=== PATIENT | female | born 1960 | race African-American/Black ===

== ENCOUNTER 2017-05-26 13:35 | Inpatient (IN) | payer MEDICARE ==
[~2017-05-26] VITALS: Ht 154.9 cm; Wt 142.9 kg
[~2017-05-26 13:35] MED LIST: CYCL10TA2 PO; HYDR-2679 PO; HYDR-971 PO
[2017-05-26 14:24] LABS: BASO # 0.1 x10^3/uL (0.0-0.2); BASO % 1 % (0-3); EOS % 0 % (0-3); HEMATOCRIT 41.7 % (36.0-47.0); HEMOGLOBIN 13.6 g/dL (12.0-15.5); LYMPH # 0.7 x10^3/uL (1.0-4.8); LYMPH % 5 % (24-48); MEAN CORPUSCULAR HEMOGLOBIN 29 pg (25-35); MEAN CORPUSCULAR HGB CONC 33 g/dL (31-37); MEAN CORPUSCULAR VOLUME 88 fL (79-100); MONO % 3 % (0-9); NEUT % 91 % (31-73); PLATELET COUNT 228 x10^3/uL (140-400); RED BLOOD COUNT 4.74 x10^6/uL (3.50-5.40); RED CELL DISTRIBUTION WIDTH 15.8 % (11.5-14.5); WHITE BLOOD COUNT 13.4 x10^3/uL (4.0-11.0)
[2017-05-26] MEDS: fentaNYL PF VIAL 100 MCG/2 ML VIAL IV PRN ×3 (14:32→19:16)
[2017-05-26 14:35] LABS: BILIRUBIN,URINE NEGATIVE (NEG); GLUCOSE,URINE NEGATIVE (NEG); NITRITE,URINE NEGATIVE (NEG); PROTEIN,URINE 100 mg/dL (NEG-TRACE); UROBILINOGEN,URINE 0.2 mg/dL (0.2 mg/dL)
[2017-05-26 14:36] LABS: CALCIUM 9.3 mg/dL (8.5-10.1); CREATININE 1.4 mg/dL (0.6-1.0); GFR 47.2; POTASSIUM 3.7 mmol/L (3.5-5.1)
[2017-05-26 14:42] LABS: ALBUMIN 3.9 g/dL (3.4-5.0); ALBUMIN/GLOBULIN RATIO 0.6 (1.0-1.7); TOTAL BILIRUBIN 1.2 mg/dL (0.2-1.0); TOTAL PROTEIN 10.1 g/dL (6.4-8.2)
[2017-05-26 14:43] LABS: BACTERIA,URINE 0 /HPF (0-FEW); SQUAMOUS EPITHELIAL CELL,UR MOD /LPF; WBC,URINE OCC /HPF (0-4)
[2017-05-26] MEDS ORDERED: CONTRAST GIVEN MC PRN (15:00)
[2017-05-26] MEDS ORDERED: IOHEXOL 300 MG/ML 75 ML VIAL IV ONE (15:15)
--- NOTE | 2017-05-26 15:40 | RAD ---
CT study of abdomen and pelvis with contrast Clinical indications: Generalized abdominal pain and bloating with nausea and vomiting. Technique: After IV infusion of 75 cc Optiray 300, helical CT scanning of the abdomen and pelvis was performed. No GI contrast was administered. This may decrease the sensitivity to detect GI tract pathology. PQRS Compliance Statement: One or more of the following individualized dose reduction techniques were utilized for this examination: 1. Automated exposure control 2. Adjustment of the mA and/or kV according to patient size 3. Use of iterative reconstruction technique Comparison: None available. Findings: Diffuse fatty infiltration of the liver is seen. The spleen is not enlarged. No focal aneurysmal dilatation of the abdominal aorta is seen. The pancreas is homogeneous. The gallbladder is surgically absent. No extrahepatic biliary ductal dilatation is seen. No adrenal mass is evident. There is diffuse enlargement of the right kidney with relative decreased enhancement. This is secondary to mild hydronephrosis and hydroureter. There is a distal right ureteral stone at the UVJ measuring 4 mm in size. Urinary bladder is not distended. Additional stones of the lower pole of the right kidney are seen. No enlarged abdominal or pelvic lymphadenopathy is seen. Midline umbilical hernia is seen containing fat. No obstructive bowel pattern is seen. The appendix is normal. No free air or free fluid or mesenteric inflammatory change is seen. No lung base consolidation is evident. Calcified atheromatous disease of the coronary arteries is seen. No osteolytic process is seen. IMPRESSION: Mild right-sided hydronephrosis and hydroureter due to a distal right ureteral stone located at the UVJ measuring 4 mm in size. Fatty infiltration of the liver. Calcified atheromatous disease of the coronary arteries is seen.
[2017-05-26 15:45] LABS: PLT ESTIMATE ADEQUATE (ADEQUATE)
--- NOTE | 2017-05-26 15:57 | PHYS DOC ---
Past Medical History Past Medical History: Diabetes-Type II, Hypertension Additional Past Medical Histor: MORBID OBESITY, OSTEOARTHRITIS Past Surgical History: Cholecystectomy Alcohol Use: None Drug Use: None Adult General Chief Complaint Chief Complaint: ABDOMINAL PAIN HPI HPI Patient is a 56 year old female brought to the ED by ambulance with the complaint of severe pain on the right side of her abdomen. This began this morning. She's had some vomiting and some diarrhea. Also urinary frequency and dysuria. The pain began Tuesday, 5 days ago, and has been constant but worsened this morning. Denies fever or chills. Denies shortness of breath. Patient has had a cholecystectomy but has not had appendectomy, she's never had a kidney stone or kidney problems. Patient has diabetes and hypertension, denies heart disease. PCP Dr. Adalid Olivares Review of Systems Review of Systems Constitutional: Denies fever or chills [] Eyes: Denies change in visual acuity, redness, or eye pain [] HENT: Denies nasal congestion or sore throat [] Respiratory: Denies cough or shortness of breath [] Cardiovascular: Denies chest pain GI: As in history of present illness : As in history of present illness Musculoskeletal: Denies back pain or joint pain [] Integument: Denies rash or skin lesions [] Neurologic: Denies headache, focal weakness or sensory changes [] Current Medications Current Medications Current Medications Medications (Trade) Dose Ordered Sig/Jenny Start Time Stop Time Status Last Admin Dose Admin Acetaminophen (Tylenol) 1,000 mg 1X ONCE 05/26/17 17:00 05/26/17 17:01 Fentanyl Citrate (Fentanyl 2ml Vial) 50 mcg PRN Q2HR PRN 05/26/17 16:00 05/27/17 15:59 Hydralazine HCl (Apresoline) 10 mg 1X ONCE 05/26/17 16:00 05/26/17 16:01 DC 05/26/17 15:54 10 MG Info (Do NOT chart on this entry -- for MONITORING) 1 each PRN DAILY PRN 05/26/17 15:00 05/28/17 14:59 Iohexol (Omnipaque 300 Mg/ml) 60 ml 1X ONCE 05/26/17 15:15 05/26/17 15:16 DC 05/26/17 15:04 60 ML Ondansetron HCl (Zofran) 4 mg PRN Q8HRS PRN 05/26/17 16:00 05/27/17 15:59 Sodium Chloride 1,000 ml @ 100 mls/hr Q10H 05/26/17 17:00 05/27/17 16:59 Tamsulosin HCl (Flomax) 0.4 mg 1X ONCE 05/26/17 16:00 05/26/17 16:01 DC 05/26/17 15:53 0.4 MG Allergies Allergies Allergies Coded Allergies Type Severity Reaction Last Updated Verified morphine Allergy Intermediate 05/26/17 Yes Physical Exam Physical Exam Constitutional: Obese, alert, mentating normally, warm and dry, appears to be uncomfortable HENT: Normocephalic, atraumatic, bilateral external ears normal, nose normal. [ ] Eyes: conjunctiva normal, no discharge. [] Neck: Normal range of motion, no stridor. [] Cardiovascular:Heart rate regular rhythm, no murmur [] Lungs & Thorax: Bilateral breath sounds clear to auscultation [] Abdomen: Bowel sounds normal, soft, appears moderately distended but difficult to assess due to obesity, no masses, no pulsatile masses. Tender to palpation on the right side of the abdomen, no rebound or guarding, not well localized. Skin: Warm, dry, no erythema, no rash. [] Extremities: No tenderness, no cyanosis, no clubbing, ROM intact, no edema. [] Neurologic: Alert and oriented X 3, normal motor function, normal sensory function, no focal deficits noted. [] Current Patient Data Vital Signs Vital Signs Date Time Temp Pulse Resp B/P (MAP) Pulse Ox O2 Delivery O2 Flow Rate FiO2 05/26/17 16:15 Room Air 05/26/17 15:54 64 211/104 05/26/17 15:51 87 05/26/17 13:35 98.7 20 98.7 Lab Values Laboratory Tests Test 05/26/17 13:50 05/26/17 14:00 Urine Collection Type Unknown Urine Color Yellow Urine Clarity Clear Urine pH 7.0 Urine Specific [place] 1.010 Urine Protein 100 mg/dL (NEG-TRACE) Urine Glucose (UA) Negative mg/dL (NEG) Urine Ketones (Stick) Trace mg/dL (NEG) Urine Blood Small (NEG) Urine Nitrite Negative (NEG) Urine Bilirubin Negative (NEG) Urine Urobilinogen Dipstick 0.2 mg/dL (0.2 mg/dL) Urine Leukocyte Esterase Negative (NEG) Urine RBC 1-2 /HPF (0-2) Urine WBC Occ /HPF (0-4) Urine Squamous Epithelial Cells Mod /LPF Urine Bacteria 0 /HPF (0-FEW) White Blood Count 13.4 x10^3/uL (4.0-11.0) H Red Blood Count 4.74 x10^6/uL (3.50-5.40) Hemoglobin 13.6 g/dL (12.0-15.5) Hematocrit 41.7 % (36.0-47.0) Mean Corpuscular Volume 88 fL (79-100) Mean Corpuscular Hemoglobin 29 pg (25-35) Mean Corpuscular Hemoglobin Concent 33 g/dL (31-37) Red Cell Distribution Width 15.8 % (11.5-14.5) H Platelet Count 228 x10^3/uL (140-400) Neutrophils (%) (Auto) 91 % (31-73) H Lymphocytes (%) (Auto) 5 % (24-48) L Monocytes (%) (Auto) 3 % (0-9) Eosinophils (%) (Auto) 0 % (0-3) Basophils (%) (Auto) 1 % (0-3) Neutrophils # (Auto) 12.2 x10^3uL (1.8-7.7) H Lymphocytes # (Auto) 0.7 x10^3/uL (1.0-4.8) L Monocytes # (Auto) 0.4 x10^3/uL (0.0-1.1) Eosinophils # (Auto) 0.0 x10^3/uL (0.0-0.7) Basophils # (Auto) 0.1 x10^3/uL (0.0-0.2) Segmented Neutrophils % 88 % (35-66) H Band Neutrophils % 3 % (0-9) Lymphocytes % 9 % (24-48) L Platelet Estimate Adequate (ADEQUATE) Sodium Level 139 mmol/L (136-145) Potassium Level 3.7 mmol/L (3.5-5.1) Chloride Level 104 mmol/L (98-107) Carbon Dioxide Level 29 mmol/L (21-32) Anion Gap 6 (6-14) Blood Urea Nitrogen 12 mg/dL (7-20) Creatinine 1.4 mg/dL (0.6-1.0) H Estimated GFR (Cockcroft-Gault) 47.2 BUN/Creatinine Ratio 9 (6-20) Glucose Level 147 mg/dL (70-99) H Calcium Level 9.3 mg/dL (8.5-10.1) Total Bilirubin 1.2 mg/dL (0.2-1.0) H Aspartate Amino Transferase (AST) 27 U/L (15-37) Alanine Aminotransferase (ALT) 24 U/L (14-59) Alkaline Phosphatase 75 U/L (46-116) Total Protein 10.1 g/dL (6.4-8.2) H Albumin 3.9 g/dL (3.4-5.0) Albumin/Globulin Ratio 0.6 (1.0-1.7) L Lipase 104 U/L (73-393) Laboratory Tests 05/26/17 14:00 Laboratory Tests 05/26/17 14:00 EKG EKG [] Radiology/Procedures Radiology/Procedures CT scan of the abdomen and pelvis read by the radiologist. Distal right ureteral stone at the UVJ measuring 4 mm with mild right-sided hydro-. [] Course & Med Decision Making Course & Med Decision Making Pertinent Labs and Imaging studies reviewed. (See chart for details) 56-year-old female presents with severe right-sided abdominal pain and vomiting , found to have a kidney stone in the right distal ureter with obstruction. She required IV pain medication in the emergency department. We also noted that her blood pressure was markedly elevated in the 220/110 range. After her pain was controlled, her blood pressure remained elevated. I ordered some IV hydralazine. The patient stated she had taken her morning blood pressure medicines as prescribed. I reviewed her previous chart and saw that on a previous visit her blood pressure was 210/91. The patient states her blood pressure is often markedly elevated when she comes to the hospital. I believe she does require IV pain control and also her creatinine is a bit elevated and this stone is causing some hydronephrosis so I feel it needs to be monitored closely to ensure that it does pass and not continue to cause hydronephrosis and stressed to her right kidney with her already having some renal insufficiency. I discussed admission with the patient and she is agreeable. I discussed the case with Dr. Sullivan, taking calls for Dr. Olivares. He will admit the patient. I wrote bridge orders. [] Dragon Disclaimer Dragon Disclaimer This electronic medical record was generated, in whole or in part, using a voice recognition dictation system. Departure Departure Impression: Primary Impression: Right ureteral stone Additional Impressions: Ureteral obstruction, right Hypertension Disposition: 09 ADMITTED INPATIENT Admitting Physician: Bryan Sullivan Condition: STABLE Referrals: KISHAN OLIVARES MD (PCP) Problem Qualifiers KIMBERLEY ANDREWS MD May 26, 2017 15:57
[2017-05-26] MEDS ORDERED: ONDANSETRON PF 4 MG/2 ML VIAL. IV PRN ×2 (16:00→23:15)
[2017-05-26] MEDS ORDERED: TAMSULOSIN 0.4 MG CAP.ER.24H. PO ONE (16:00)
[2017-05-26] MEDS ORDERED: hydrALAZINE 20 MG/ML VIAL. IVP ONE (16:00)
[2017-05-26] MEDS ORDERED: fentaNYL PF VIAL 100 MCG/2 ML VIAL IV ONE (16:00)
[2017-05-26] MEDS ORDERED: fentaNYL PF VIAL 100 MCG/2 ML VIAL IV PRN ×2 (16:00→19:15)
[2017-05-26] MEDS ORDERED: ACETAMINOPHEN 500 MG TABLET PO ONE (17:00)
--- NOTE | 2017-05-26 17:48 | PDOC ---
PROGRESS NOTES Subjective Subjective Pt. with right renal colic Objective Objective Vital Signs Date Time Temp Pulse Resp B/P (MAP) Pulse Ox O2 Delivery O2 Flow Rate FiO2 05/26/17 17:07 66 183/147 (159) 93 05/26/17 16:15 Room Air 05/26/17 13:35 98.7 20 98.7 Physical Exam Physical Exam Tender right abd and flank Plan Plan of Care Pt. with 4 mm right distal stone with pain and nausea Pt. with no prior stones. I discussed situation with pt. and we discussed the options, alternatives, benefits, risks and possible complications of medical expulsive therapy vs. cystoscopy with right retrograde pyelogram and possible right ureteroscopy with possible laser lithotripsy and stent placement. Pt. with think over options and will re-evaluate in am proceed accordingly. Problems Medical Problems: (1) Hypertension Status: Acute (2) Right ureteral stone Status: Acute (3) Ureteral obstruction, right Status: Acute Comment Review of Relevant I have reviewed the following items hal (where applicable) has been applied. Labs Laboratory Tests Test 05/26/17 13:50 05/26/17 14:00 Urine Collection Type Unknown Urine Color Yellow Urine Clarity Clear Urine pH 7.0 Urine Specific [place] 1.010 Urine Protein 100 mg/dL (NEG-TRACE) Urine Glucose (UA) Negative mg/dL (NEG) Urine Ketones (Stick) Trace mg/dL (NEG) Urine Blood Small (NEG) Urine Nitrite Negative (NEG) Urine Bilirubin Negative (NEG) Urine Urobilinogen Dipstick 0.2 mg/dL (0.2 mg/dL) Urine Leukocyte Esterase Negative (NEG) Urine RBC 1-2 /HPF (0-2) Urine WBC Occ /HPF (0-4) Urine Squamous Epithelial Cells Mod /LPF Urine Bacteria 0 /HPF (0-FEW) White Blood Count 13.4 x10^3/uL (4.0-11.0) Red Blood Count 4.74 x10^6/uL (3.50-5.40) Hemoglobin 13.6 g/dL (12.0-15.5) Hematocrit 41.7 % (36.0-47.0) Mean Corpuscular Volume 88 fL (79-100) Mean Corpuscular Hemoglobin 29 pg (25-35) Mean Corpuscular Hemoglobin Concent 33 g/dL (31-37) Red Cell Distribution Width 15.8 % (11.5-14.5) Platelet Count 228 x10^3/uL (140-400) Neutrophils (%) (Auto) 91 % (31-73) Lymphocytes (%) (Auto) 5 % (24-48) Monocytes (%) (Auto) 3 % (0-9) Eosinophils (%) (Auto) 0 % (0-3) Basophils (%) (Auto) 1 % (0-3) Neutrophils # (Auto) 12.2 x10^3uL (1.8-7.7) Lymphocytes # (Auto) 0.7 x10^3/uL (1.0-4.8) Monocytes # (Auto) 0.4 x10^3/uL (0.0-1.1) Eosinophils # (Auto) 0.0 x10^3/uL (0.0-0.7) Basophils # (Auto) 0.1 x10^3/uL (0.0-0.2) Segmented Neutrophils % 88 % (35-66) Band Neutrophils % 3 % (0-9) Lymphocytes % 9 % (24-48) Platelet Estimate Adequate (ADEQUATE) Sodium Level 139 mmol/L (136-145) Potassium Level 3.7 mmol/L (3.5-5.1) Chloride Level 104 mmol/L (98-107) Carbon Dioxide Level 29 mmol/L (21-32) Anion Gap 6 (6-14) Blood Urea Nitrogen 12 mg/dL (7-20) Creatinine 1.4 mg/dL (0.6-1.0) Estimated GFR (Cockcroft-Gault) 47.2 BUN/Creatinine Ratio 9 (6-20) Glucose Level 147 mg/dL (70-99) Calcium Level 9.3 mg/dL (8.5-10.1) Total Bilirubin 1.2 mg/dL (0.2-1.0) Aspartate Amino Transf (AST/SGOT) 27 U/L (15-37) Alanine Aminotransferase (ALT/SGPT) 24 U/L (14-59) Alkaline Phosphatase 75 U/L (46-116) Total Protein 10.1 g/dL (6.4-8.2) Albumin 3.9 g/dL (3.4-5.0) Albumin/Globulin Ratio 0.6 (1.0-1.7) Lipase 104 U/L (73-393) Laboratory Tests Test 05/26/17 13:50 05/26/17 14:00 Urine Collection Type Unknown Urine Color Yellow Urine Clarity Clear Urine pH 7.0 Urine Specific [place] 1.010 Urine Protein 100 mg/dL (NEG-TRACE) Urine Glucose (UA) Negative mg/dL (NEG) Urine Ketones (Stick) Trace mg/dL (NEG) Urine Blood Small (NEG) Urine Nitrite Negative (NEG) Urine Bilirubin Negative (NEG) Urine Urobilinogen Dipstick 0.2 mg/dL (0.2 mg/dL) Urine Leukocyte Esterase Negative (NEG) Urine RBC 1-2 /HPF (0-2) Urine WBC Occ /HPF (0-4) Urine Squamous Epithelial Cells Mod /LPF Urine Bacteria 0 /HPF (0-FEW) White Blood Count 13.4 x10^3/uL (4.0-11.0) Red Blood Count 4.74 x10^6/uL (3.50-5.40) Hemoglobin 13.6 g/dL (12.0-15.5) Hematocrit 41.7 % (36.0-47.0) Mean Corpuscular Volume 88 fL (79-100) Mean Corpuscular Hemoglobin 29 pg (25-35) Mean Corpuscular Hemoglobin Concent 33 g/dL (31-37) Red Cell Distribution Width 15.8 % (11.5-14.5) Platelet Count 228 x10^3/uL (140-400) Neutrophils (%) (Auto) 91 % (31-73) Lymphocytes (%) (Auto) 5 % (24-48) Monocytes (%) (Auto) 3 % (0-9) Eosinophils (%) (Auto) 0 % (0-3) Basophils (%) (Auto) 1 % (0-3) Neutrophils # (Auto) 12.2 x10^3uL (1.8-7.7) Lymphocytes # (Auto) 0.7 x10^3/uL (1.0-4.8) Monocytes # (Auto) 0.4 x10^3/uL (0.0-1.1) Eosinophils # (Auto) 0.0 x10^3/uL (0.0-0.7) Basophils # (Auto) 0.1 x10^3/uL (0.0-0.2) Segmented Neutrophils % 88 % (35-66) Band Neutrophils % 3 % (0-9) Lymphocytes % 9 % (24-48) Platelet Estimate Adequate (ADEQUATE) Sodium Level 139 mmol/L (136-145) Potassium Level 3.7 mmol/L (3.5-5.1) Chloride Level 104 mmol/L (98-107) Carbon Dioxide Level 29 mmol/L (21-32) Anion Gap 6 (6-14) Blood Urea Nitrogen 12 mg/dL (7-20) Creatinine 1.4 mg/dL (0.6-1.0) Estimated GFR (Cockcroft-Gault) 47.2 BUN/Creatinine Ratio 9 (6-20) Glucose Level 147 mg/dL (70-99) Calcium Level 9.3 mg/dL (8.5-10.1) Total Bilirubin 1.2 mg/dL (0.2-1.0) Aspartate Amino Transf (AST/SGOT) 27 U/L (15-37) Alanine Aminotransferase (ALT/SGPT) 24 U/L (14-59) Alkaline Phosphatase 75 U/L (46-116) Total Protein 10.1 g/dL (6.4-8.2) Albumin 3.9 g/dL (3.4-5.0) Albumin/Globulin Ratio 0.6 (1.0-1.7) Lipase 104 U/L (73-393) Medications Current Medications Fentanyl Citrate (Fentanyl 2ml Vial) 50 mcg PRN Q15MIN PRN IV PAIN GREATER THAN 3/10 Last administered on 05/26/17 15:26; Start 05/26/17 at 14:15; Stop at 23:00 Iohexol (Omnipaque 300 Mg/ml) 60 ml 1X ONCE IV Last administered on 05/26/17 15:04; Start 05/26/17 at 15:15; Stop 05/26/17 at 15:16; Status DC Info (Do NOT chart on this entry -- for MONITORING) 1 each PRN DAILY PRN MC SEE COMMENTS; Start 05/26/17 at 15:00; Stop 05/28/17 at 14:59 Fentanyl Citrate (Fentanyl 2ml Vial) 100 mcg 1X ONCE IV Last administered on 15:54; Start 05/26/17 at 16:00; Stop 05/26/17 at 16:01; Status DC Tamsulosin HCl (Flomax) 0.4 mg 1X ONCE PO Last administered on 05/26/17 15:53 ; Start 05/26/17 at 16:00; Stop 05/26/17 at 16:01; Status DC Hydralazine HCl (Apresoline) 10 mg 1X ONCE IVP Last administered on 05/26/17 15:54; Start 05/26/17 at 16:00; Stop 05/26/17 at 16:01; Status DC Ondansetron HCl (Zofran) 4 mg PRN Q8HRS PRN IV NAUSEA/VOMITING Last administered on 05/26/17 17:07; Start 05/26/17 at 16:00; Stop 05/27/17 at 15:59 Fentanyl Citrate (Fentanyl 2ml Vial) 50 mcg PRN Q2HR PRN IV PAIN; Start at 16:00; Stop 05/27/17 at 15:59 Sodium Chloride 1,000 ml @ 100 mls/hr Q10H IV ; Start 05/26/17 at 17:00; Stop 05/27/17 at 16:59 Acetaminophen (Tylenol) 1,000 mg 1X ONCE PO Last administered on 05/26/17 17: 07; Start 05/26/17 at 17:00; Stop 05/26/17 at 17:01; Status DC Active Scripts Active Lortab 7.5-325 mg Tablet (Hydrocodone/Acetaminophen) 1 Each Tablet 1 Tab PO PRN Q6HRS PRN [place] 5-325 Tablet (Acetaminophen/Hydrocodone Bitart) 1 Each Tablet 1 Tab PO PRN Q6HRS PRN Cyclobenzaprine Hcl 10 Mg Tablet 1 Tab PO TID PRN Vitals/I & O Vital Sign - Last 24 Hours 05/26/17 05/26/17 05/26/17 05/26/17 13:35 14:29 14:32 14:36 Temp 98.7 98.7 Pulse 81 74 60 Resp 20 B/P (MAP) 180/99 (126) 250/122 (164) 242/115 (157) Pulse Ox 95 93 93 O2 Delivery Room Air Room Air Room Air 05/26/17 05/26/17 05/26/17 05/26/17 15:26 15:40 15:51 15:54 Pulse 60 66 B/P (MAP) 248/118 (161) 211/104 (139) Pulse Ox 89 87 O2 Delivery Room Air Room Air 05/26/17 05/26/17 05/26/17 05/26/17 15:54 16:15 16:15 16:22 Pulse 64 70 B/P (MAP) 211/104 219/100 (139) Pulse Ox 93 O2 Delivery Room Air Room Air 05/26/17 05/26/17 16:37 17:07 Pulse 62 66 B/P (MAP) 192/91 (124) 183/147 (159) Pulse Ox 92 93 WESTON ÁLVAREZ MD May 26, 2017 17:48
--- NOTE | 2017-05-26 18:09 | ACF ---
Admission Forms Criteria ABDOMINAL PAIN Clinical Indications for Admission to Inpatient Care (Place 'X' for any and all applicable criteria): Admission is indicated for ANY ONE of the following(1)(2)(3)(4)(5): [X ]I. Inpatient admission required rather than observation care (Also use Abdominal Pain: Observation Care, as appropriate) because of ANY ONE of the following: [ ]a) Severe pain requiring acute inpatient management [X ]b) Identification of etiology/finding that requires inpatient care (eg, aortic dissection, free air) [ ]c) Absent bowel sounds with complete ileus(6) [ ]d) Suspected toxic megacolon [ ]e) Severe electrolyte abnormalities requiring inpatient care [ ]f) High fever or infection requiring inpatient admission as indicated by ANY ONE of following(7)(8): [ ] i) Appropriate outpatient or observational care antimicrobial treatment unavailable, not effective, or not feasible [ ] ii) Documented bacteremia [ ] iii) Temperature > 104.9 degrees F (oral) [ ] iv) T >103.1 F (oral) or < 96.8 F(rectal) that does not respond to all emergency treatment measures [ ]g) Signs of intestinal obstruction [B] [ ]h) Hemodynamic instability [ ]i) IV fluid to replace significant ongoing losses (greater than 3 L/m2 per day) (12)(13) [ ]j) Percutaneous or open drainage (eg, abscess, biliary tract ) procedures [ ]k) Parenteral nutrition regimen that must be implemented on inpatient basis [ ]l) Other condition,treatment or monitoring requiring inpatient admission. [ ]II. Peritoneal signs present [ ]III. Surgery needed that cannot be performed on an ambulatory basis. [ ]IV. Evaluation requires patient to not eat or drink for extended period ( eg, more than 24 hours). [ ]V. Contraindications and/or Inappropriate clinical situations for Observational Care in patients with abdominal pain, when ANY ONE of the following is required: [ ]a) Thorough evaluation is required to prevent catastrophic events due to delays in diagnosing (e.g.Mesenteric ischemia) 1,3 [ ]b) Patient with severe pathology or with chronic symptoms unlikely to improve in the ED stay (3) [X ]. General contraindications and/or Inappropriate clinical situations for Observational Care in patients with abdominal pain, when ANY ONE of the following is required: [ ]a) Prediction of prolongation of LOS based on ANY ONE of the following may be considered as a contraindication for observational care 2, 3, 4, 5, 6, 7, 8, 9, 10, 11 [ ]i) Age > 65 yrs. [ ]ii) Patient arriving by ambulance [ ]iii) Patient with high acuity [ ]iv) Patient requiring vital sign monitoring [ ]v) Patient on IV medication [X ]b) Systolic blood pressures 180mmHg 3,12 [ ]c) Patient with altered mental status including delirium and other alteration of consciousness, (3) [ ]d) Patient whose discharge disposition will be to a fpc home or rehabilitation home should not be managed in Emergency Department Observation Unit. CMS rule requires 3 days hospital stay before such placement.3,13 [ ]e) Patient with failure to thrive due to broad array of etiologies 3,16,17 [ ]f) Inability to ambulate 3,14 Extended stay beyond goal length of stay may be needed for(2)(3): [ ]a) Persistent abdominal pain with suspected intra-abdominal process [ ]b) Diagnosed condition requiring continued stay (e.g., pancreatitis, complicated diverticulitis) [ ]c) Surgery (e.g., colectomy) The original [facility] content created by [employer] has been revised. The portions of the content which have been revised are identified through the use of italic text or in bold, and [facility] has neither reviewed nor approved the modified material.All other unmodified content is copyright [facility] [facility]. Please see references footnoted in the original [facility] edition 2016 Admission Criteria Met?: Yes CARINE PEDERSON May 26, 2017 18:08
[2017-05-26] MEDS ORDERED: cloNIDine HCL 0.2 MG TABLET PO PRN (19:15)
[2017-05-26 20:08] VITALS: BP 213/86
[2017-05-26] MEDS: IV NORMAL SALINE 1000ML BAG 1,000 ML IV SCH (20:13)
[2017-05-26] MEDS: hydrALAZINE 20 MG/ML VIAL. IVP PRN (20:22)
[2017-05-26 23:10] VITALS: BP 183/96
[2017-05-26] MEDS ORDERED: PROMETHAZINE 12.5 MG in IV NORMAL SALINE 50ML 50 ML IV PRN (23:15)
[2017-05-27] VITALS (11 sets, daily range): BP systolic 122–176; BP diastolic 66–109
[2017-05-27] MEDS: IV NORMAL SALINE 1000ML BAG 1,000 ML IV SCH ×2 (03:00→16:30)
[2017-05-27 08:17] LABS: BASO % 0 % (0-3); EOS % 0 % (0-3); HEMATOCRIT 38.5 % (36.0-47.0); HEMOGLOBIN 12.6 g/dL (12.0-15.5); LYMPH # 1.3 x10^3/uL (1.0-4.8); LYMPH % 13 % (24-48); MEAN CORPUSCULAR HEMOGLOBIN 29 pg (25-35); MEAN CORPUSCULAR HGB CONC 33 g/dL (31-37); MEAN CORPUSCULAR VOLUME 89 fL (79-100); MONO % 9 % (0-9); NEUT % 77 % (31-73); PLATELET COUNT 226 x10^3/uL (140-400); RED BLOOD COUNT 4.34 x10^6/uL (3.50-5.40); RED CELL DISTRIBUTION WIDTH 15.7 % (11.5-14.5); WHITE BLOOD COUNT 10.2 x10^3/uL (4.0-11.0)
[2017-05-27 08:36] LABS: CALCIUM 8.9 mg/dL (8.5-10.1); CREATININE 2.1 mg/dL (0.6-1.0); GFR 29.6; POTASSIUM 3.6 mmol/L (3.5-5.1)
--- NOTE | 2017-05-27 08:38 | PDOC ---
PROGRESS NOTES Subjective Subjective Pt. is pain free Objective Objective Vital Signs Date Time Temp Pulse Resp B/P (MAP) Pulse Ox O2 Delivery O2 Flow Rate FiO2 05/27/17 07:00 99.5 53 20 122/67 (85) 93 Room Air 99.5 Intake and Output 05/27/17 07:00 Intake Total 0 ml Output Total 500 ml Balance -500 ml Intake Oral 0 ml Output Urine Total 500 ml Physical Exam Physical Exam No abdominal or flank pain Plan Plan of Care Pt. reports no pain this morning however, pt's Cr. has increased to 2.1. I discussed the options, alternatives, benefits, risks and possible complications of watchful waiting vs. intervention with cystoscopy, right retrograde pyelogram , possible right ureteroscopy with possible laser lithotripsy and stent placement. Pt. understands and wishes to proceed with operation. Will proceed accordingly. Problems Medical Problems: (1) Hypertension Status: Acute (2) Right ureteral stone Status: Acute (3) Ureteral obstruction, right Status: Acute Comment Review of Relevant I have reviewed the following items hal (where applicable) has been applied. Labs Laboratory Tests Test 05/26/17 13:50 05/26/17 14:00 05/26/17 20:55 05/27/17 07:11 Urine Collection Type Unknown Urine Color Yellow Urine Clarity Clear Urine pH 7.0 Urine Specific [place] 1.010 Urine Protein 100 mg/dL (NEG-TRACE) Urine Glucose (UA) Negative mg/dL (NEG) Urine Ketones (Stick) Trace mg/dL (NEG) Urine Blood Small (NEG) Urine Nitrite Negative (NEG) Urine Bilirubin Negative (NEG) Urine Urobilinogen Dipstick 0.2 mg/dL (0.2 mg/dL) Urine Leukocyte Esterase Negative (NEG) Urine RBC 1-2 /HPF (0-2) Urine WBC Occ /HPF (0-4) Urine Squamous Epithelial Cells Mod /LPF Urine Bacteria 0 /HPF (0-FEW) White Blood Count 13.4 x10^3/uL (4.0-11.0) Red Blood Count 4.74 x10^6/uL (3.50-5.40) Hemoglobin 13.6 g/dL (12.0-15.5) Hematocrit 41.7 % (36.0-47.0) Mean Corpuscular Volume 88 fL (79-100) Mean Corpuscular Hemoglobin 29 pg (25-35) Mean Corpuscular Hemoglobin Concent 33 g/dL (31-37) Red Cell Distribution Width 15.8 % (11.5-14.5) Platelet Count 228 x10^3/uL (140-400) Neutrophils (%) (Auto) 91 % (31-73) Lymphocytes (%) (Auto) 5 % (24-48) Monocytes (%) (Auto) 3 % (0-9) Eosinophils (%) (Auto) 0 % (0-3) Basophils (%) (Auto) 1 % (0-3) Neutrophils # (Auto) 12.2 x10^3uL (1.8-7.7) Lymphocytes # (Auto) 0.7 x10^3/uL (1.0-4.8) Monocytes # (Auto) 0.4 x10^3/uL (0.0-1.1) Eosinophils # (Auto) 0.0 x10^3/uL (0.0-0.7) Basophils # (Auto) 0.1 x10^3/uL (0.0-0.2) Segmented Neutrophils % 88 % (35-66) Band Neutrophils % 3 % (0-9) Lymphocytes % 9 % (24-48) Platelet Estimate Adequate (ADEQUATE) Sodium Level 139 mmol/L (136-145) Potassium Level 3.7 mmol/L (3.5-5.1) Chloride Level 104 mmol/L (98-107) Carbon Dioxide Level 29 mmol/L (21-32) Anion Gap 6 (6-14) Blood Urea Nitrogen 12 mg/dL (7-20) Creatinine 1.4 mg/dL (0.6-1.0) Estimated GFR (Cockcroft-Gault) 47.2 BUN/Creatinine Ratio 9 (6-20) Glucose Level 147 mg/dL (70-99) Calcium Level 9.3 mg/dL (8.5-10.1) Total Bilirubin 1.2 mg/dL (0.2-1.0) Aspartate Amino Transf (AST/SGOT) 27 U/L (15-37) Alanine Aminotransferase (ALT/SGPT) 24 U/L (14-59) Alkaline Phosphatase 75 U/L (46-116) Total Protein 10.1 g/dL (6.4-8.2) Albumin 3.9 g/dL (3.4-5.0) Albumin/Globulin Ratio 0.6 (1.0-1.7) Lipase 104 U/L (73-393) Glucose (Fingerstick) 142 mg/dL (70-99) 108 mg/dL (70-99) Test 05/27/17 07:40 White Blood Count 10.2 x10^3/uL (4.0-11.0) Red Blood Count 4.34 x10^6/uL (3.50-5.40) Hemoglobin 12.6 g/dL (12.0-15.5) Hematocrit 38.5 % (36.0-47.0) Mean Corpuscular Volume 89 fL (79-100) Mean Corpuscular Hemoglobin 29 pg (25-35) Mean Corpuscular Hemoglobin Concent 33 g/dL (31-37) Red Cell Distribution Width 15.7 % (11.5-14.5) Platelet Count 226 x10^3/uL (140-400) Neutrophils (%) (Auto) 77 % (31-73) Lymphocytes (%) (Auto) 13 % (24-48) Monocytes (%) (Auto) 9 % (0-9) Eosinophils (%) (Auto) 0 % (0-3) Basophils (%) (Auto) 0 % (0-3) Neutrophils # (Auto) 7.9 x10^3uL (1.8-7.7) Lymphocytes # (Auto) 1.3 x10^3/uL (1.0-4.8) Monocytes # (Auto) 0.9 x10^3/uL (0.0-1.1) Eosinophils # (Auto) 0.0 x10^3/uL (0.0-0.7) Basophils # (Auto) 0.0 x10^3/uL (0.0-0.2) Laboratory Tests Test 05/26/17 13:50 05/26/17 14:00 05/26/17 20:55 05/27/17 07:11 Urine Collection Type Unknown Urine Color Yellow Urine Clarity Clear Urine pH 7.0 Urine Specific [place] 1.010 Urine Protein 100 mg/dL (NEG-TRACE) Urine Glucose (UA) Negative mg/dL (NEG) Urine Ketones (Stick) Trace mg/dL (NEG) Urine Blood Small (NEG) Urine Nitrite Negative (NEG) Urine Bilirubin Negative (NEG) Urine Urobilinogen Dipstick 0.2 mg/dL (0.2 mg/dL) Urine Leukocyte Esterase Negative (NEG) Urine RBC 1-2 /HPF (0-2) Urine WBC Occ /HPF (0-4) Urine Squamous Epithelial Cells Mod /LPF Urine Bacteria 0 /HPF (0-FEW) White Blood Count 13.4 x10^3/uL (4.0-11.0) Red Blood Count 4.74 x10^6/uL (3.50-5.40) Hemoglobin 13.6 g/dL (12.0-15.5) Hematocrit 41.7 % (36.0-47.0) Mean Corpuscular Volume 88 fL (79-100) Mean Corpuscular Hemoglobin 29 pg (25-35) Mean Corpuscular Hemoglobin Concent 33 g/dL (31-37) Red Cell Distribution Width 15.8 % (11.5-14.5) Platelet Count 228 x10^3/uL (140-400) Neutrophils (%) (Auto) 91 % (31-73) Lymphocytes (%) (Auto) 5 % (24-48) Monocytes (%) (Auto) 3 % (0-9) Eosinophils (%) (Auto) 0 % (0-3) Basophils (%) (Auto) 1 % (0-3) Neutrophils # (Auto) 12.2 x10^3uL (1.8-7.7) Lymphocytes # (Auto) 0.7 x10^3/uL (1.0-4.8) Monocytes # (Auto) 0.4 x10^3/uL (0.0-1.1) Eosinophils # (Auto) 0.0 x10^3/uL (0.0-0.7) Basophils # (Auto) 0.1 x10^3/uL (0.0-0.2) Segmented Neutrophils % 88 % (35-66) Band Neutrophils % 3 % (0-9) Lymphocytes % 9 % (24-48) Platelet Estimate Adequate (ADEQUATE) Sodium Level 139 mmol/L (136-145) Potassium Level 3.7 mmol/L (3.5-5.1) Chloride Level 104 mmol/L (98-107) Carbon Dioxide Level 29 mmol/L (21-32) Anion Gap 6 (6-14) Blood Urea Nitrogen 12 mg/dL (7-20) Creatinine 1.4 mg/dL (0.6-1.0) Estimated GFR (Cockcroft-Gault) 47.2 BUN/Creatinine Ratio 9 (6-20) Glucose Level 147 mg/dL (70-99) Calcium Level 9.3 mg/dL (8.5-10.1) Total Bilirubin 1.2 mg/dL (0.2-1.0) Aspartate Amino Transf (AST/SGOT) 27 U/L (15-37) Alanine Aminotransferase (ALT/SGPT) 24 U/L (14-59) Alkaline Phosphatase 75 U/L (46-116) Total Protein 10.1 g/dL (6.4-8.2) Albumin 3.9 g/dL (3.4-5.0) Albumin/Globulin Ratio 0.6 (1.0-1.7) Lipase 104 U/L (73-393) Glucose (Fingerstick) 142 mg/dL (70-99) 108 mg/dL (70-99) Test 05/27/17 07:40 White Blood Count 10.2 x10^3/uL (4.0-11.0) Red Blood Count 4.34 x10^6/uL (3.50-5.40) Hemoglobin 12.6 g/dL (12.0-15.5) Hematocrit 38.5 % (36.0-47.0) Mean Corpuscular Volume 89 fL (79-100) Mean Corpuscular Hemoglobin 29 pg (25-35) Mean Corpuscular Hemoglobin Concent 33 g/dL (31-37) Red Cell Distribution Width 15.7 % (11.5-14.5) Platelet Count 226 x10^3/uL (140-400) Neutrophils (%) (Auto) 77 % (31-73) Lymphocytes (%) (Auto) 13 % (24-48) Monocytes (%) (Auto) 9 % (0-9) Eosinophils (%) (Auto) 0 % (0-3) Basophils (%) (Auto) 0 % (0-3) Neutrophils # (Auto) 7.9 x10^3uL (1.8-7.7) Lymphocytes # (Auto) 1.3 x10^3/uL (1.0-4.8) Monocytes # (Auto) 0.9 x10^3/uL (0.0-1.1) Eosinophils # (Auto) 0.0 x10^3/uL (0.0-0.7) Basophils # (Auto) 0.0 x10^3/uL (0.0-0.2) Medications Current Medications Fentanyl Citrate (Fentanyl 2ml Vial) 50 mcg PRN Q15MIN PRN IV PAIN GREATER THAN 3/10 Last administered on 05/26/17 19:16; Start 05/26/17 at 14:15; Stop at 23:01; Status DC Iohexol (Omnipaque 300 Mg/ml) 60 ml 1X ONCE IV Last administered on 05/26/17 15:04; Start 05/26/17 at 15:15; Stop 05/26/17 at 15:16; Status DC Info (Do NOT chart on this entry -- for MONITORING) 1 each PRN DAILY PRN MC SEE COMMENTS; Start 05/26/17 at 15:00; Stop 05/28/17 at 14:59 Fentanyl Citrate (Fentanyl 2ml Vial) 100 mcg 1X ONCE IV Last administered on 15:54; Start 05/26/17 at 16:00; Stop 05/26/17 at 16:01; Status DC Tamsulosin HCl (Flomax) 0.4 mg 1X ONCE PO Last administered on 05/26/17 15:53 ; Start 05/26/17 at 16:00; Stop 05/26/17 at 16:01; Status DC Hydralazine HCl (Apresoline) 10 mg 1X ONCE IVP Last administered on 05/26/17 15:54; Start 05/26/17 at 16:00; Stop 05/26/17 at 16:01; Status DC Ondansetron HCl (Zofran) 4 mg PRN Q8HRS PRN IV NAUSEA/VOMITING Last administered on 05/26/17 17:07; Start 05/26/17 at 16:00; Stop 05/26/17 at 23:11 ; Status DC Fentanyl Citrate (Fentanyl 2ml Vial) 50 mcg PRN Q2HR PRN IV PAIN; Start at 16:00; Stop 05/27/17 at 15:59 Sodium Chloride 1,000 ml @ 100 mls/hr Q10H IV Last administered on 05/26/17 20:13; Start 05/26/17 at 17:00; Stop 05/27/17 at 16:59 Acetaminophen (Tylenol) 1,000 mg 1X ONCE PO Last administered on 05/26/17 17: 07; Start 05/26/17 at 17:00; Stop 05/26/17 at 17:01; Status DC Ceftriaxone Sodium 1 gm/ Sodium Chloride 50 ml @ 100 mls/hr Q24H IV ; Start at 18:00 Ceftriaxone Sodium 50 ml @ 100 mls/hr 1X ONCE IV Last administered on 19:04; Start 05/26/17 at 18:00; Stop 05/26/17 at 18:29; Status DC Fentanyl Citrate (Fentanyl 2ml Vial) 50 mcg PRN Q2HR PRN IV PAIN; Start at 19:15 Hydralazine HCl (Apresoline) 10 mg PRN Q4HRS PRN IVP ELEVATED BP, SEE COMMENTS Last administered on 05/26/17 20:22; Start 05/26/17 at 19:15 Clonidine HCl (Catapres) 0.2 mg Q8HRS PRN PO HYPERTENSION, SEE COMMENTS Last administered on 05/26/17 23:14; Start 05/26/17 at 19:15 Ondansetron HCl (Zofran) 8 mg PRN Q6HRS PRN IV NAUSEA/VOMITING Last administered on 05/26/17 23:15; Start 05/26/17 at 23:15 Promethazine HCl 12.5 mg/Sodium Chloride 50.5 ml @ 101 mls/hr PRN Q6HRS PRN IV NAUSEA; Start 05/26/17 at 23:15 Active Scripts Active Lortab 7.5-325 mg Tablet (Hydrocodone/Acetaminophen) 1 Each Tablet 1 Tab PO PRN Q6HRS PRN [place] 5-325 Tablet (Acetaminophen/Hydrocodone Bitart) 1 Each Tablet 1 Tab PO PRN Q6HRS PRN Cyclobenzaprine Hcl 10 Mg Tablet 1 Tab PO TID PRN Vitals/I & O Vital Sign - Last 24 Hours 05/26/17 05/26/17 05/26/17 05/26/17 13:35 14:29 14:32 14:36 Temp 98.7 98.7 Pulse 81 74 60 Resp 20 B/P (MAP) 180/99 (126) 250/122 (164) 242/115 (157) Pulse Ox 95 93 93 O2 Delivery Room Air Room Air Room Air 05/26/17 05/26/17 05/26/17 05/26/17 15:26 15:40 15:51 15:54 Pulse 60 66 B/P (MAP) 248/118 (161) 211/104 (139) Pulse Ox 89 87 O2 Delivery Room Air Room Air 05/26/17 05/26/17 05/26/17 05/26/17 15:54 16:15 16:22 16:37 Pulse 64 70 62 B/P (MAP) 211/104 219/100 (139) 192/91 (124) Pulse Ox 93 92 O2 Delivery Room Air 05/26/17 05/26/17 05/26/17 05/26/17 17:07 17:37 18:07 19:16 Pulse 66 62 64 B/P (MAP) 183/147 (159) 223/98 (139) 234/109 (150) Pulse Ox 93 97 91 O2 Delivery Room Air 05/26/17 05/26/17 05/26/17 05/26/17 20:08 20:13 20:22 20:24 Temp 96.4 96.4 Pulse 65 65 Resp 16 18 B/P (MAP) 213/86 (128) 213/86 Pulse Ox 93 O2 Delivery Room Air Room Air Room Air 05/26/17 05/26/17 05/27/17 05/27/17 23:10 23:14 03:41 07:00 Temp 98.4 98.1 99.5 98.4 98.1 99.5 Pulse 77 58 53 Resp 18 18 20 B/P (MAP) 183/96 (125) 183/96 128/66 (86) 122/67 (85) Pulse Ox 94 92 93 O2 Delivery Room Air Room Air Room Air Intake and Output 05/26/17 05/26/17 05/27/17 15:00 23:00 07:00 Intake Total 0 ml Output Total 500 ml Balance -500 ml WESTON ÁLVAREZ MD May 27, 2017 08:38
--- NOTE | 2017-05-27 10:01 | PDOC2 ---
UROLOGY CONSULT Date of Admission DATE: 05/27/17 TIME: 10:00 ROS ROS: RESPIRATORY: Shortness of breath denies. Cough denies. UROLOGY: Denies blood in urine. Denies difficulty urinating Current Medications Current Medications Fentanyl Citrate (Fentanyl 2ml Vial) 50 mcg PRN Q15MIN PRN IV PAIN GREATER THAN 3/10 Last administered on 05/26/17 19:16; Start 05/26/17 at 14:15; Stop at 23:01; Status DC Iohexol (Omnipaque 300 Mg/ml) 60 ml 1X ONCE IV Last administered on 05/26/17 15:04; Start 05/26/17 at 15:15; Stop 05/26/17 at 15:16; Status DC Info (Do NOT chart on this entry -- for MONITORING) 1 each PRN DAILY PRN MC SEE COMMENTS; Start 05/26/17 at 15:00; Stop 05/28/17 at 14:59 Fentanyl Citrate (Fentanyl 2ml Vial) 100 mcg 1X ONCE IV Last administered on 15:54; Start 05/26/17 at 16:00; Stop 05/26/17 at 16:01; Status DC Tamsulosin HCl (Flomax) 0.4 mg 1X ONCE PO Last administered on 05/26/17 15:53 ; Start 05/26/17 at 16:00; Stop 05/26/17 at 16:01; Status DC Hydralazine HCl (Apresoline) 10 mg 1X ONCE IVP Last administered on 05/26/17 15:54; Start 05/26/17 at 16:00; Stop 05/26/17 at 16:01; Status DC Ondansetron HCl (Zofran) 4 mg PRN Q8HRS PRN IV NAUSEA/VOMITING Last administered on 05/26/17 17:07; Start 05/26/17 at 16:00; Stop 05/26/17 at 23:11 ; Status DC Fentanyl Citrate (Fentanyl 2ml Vial) 50 mcg PRN Q2HR PRN IV PAIN; Start at 16:00; Stop 05/27/17 at 15:59 Sodium Chloride 1,000 ml @ 100 mls/hr Q10H IV Last administered on 05/26/17 20:13; Start 05/26/17 at 17:00; Stop 05/27/17 at 16:59 Acetaminophen (Tylenol) 1,000 mg 1X ONCE PO Last administered on 05/26/17 17: 07; Start 05/26/17 at 17:00; Stop 05/26/17 at 17:01; Status DC Ceftriaxone Sodium 1 gm/ Sodium Chloride 50 ml @ 100 mls/hr Q24H IV ; Start at 18:00 Ceftriaxone Sodium 50 ml @ 100 mls/hr 1X ONCE IV Last administered on 19:04; Start 05/26/17 at 18:00; Stop 05/26/17 at 18:29; Status DC Fentanyl Citrate (Fentanyl 2ml Vial) 50 mcg PRN Q2HR PRN IV PAIN; Start at 19:15 Hydralazine HCl (Apresoline) 10 mg PRN Q4HRS PRN IVP ELEVATED BP, SEE COMMENTS Last administered on 05/26/17 20:22; Start 05/26/17 at 19:15 Clonidine HCl (Catapres) 0.2 mg Q8HRS PRN PO HYPERTENSION, SEE COMMENTS Last administered on 05/26/17 23:14; Start 05/26/17 at 19:15 Ondansetron HCl (Zofran) 8 mg PRN Q6HRS PRN IV NAUSEA/VOMITING Last administered on 05/26/17 23:15; Start 05/26/17 at 23:15 Promethazine HCl 12.5 mg/Sodium Chloride 50.5 ml @ 101 mls/hr PRN Q6HRS PRN IV NAUSEA; Start 05/26/17 at 23:15 Active Scripts Active Lortab 7.5-325 mg Tablet (Hydrocodone/Acetaminophen) 1 Each Tablet 1 Tab PO PRN Q6HRS PRN [place] 5-325 Tablet (Acetaminophen/Hydrocodone Bitart) 1 Each Tablet 1 Tab PO PRN Q6HRS PRN Cyclobenzaprine Hcl 10 Mg Tablet 1 Tab PO TID PRN Allergies: Coded Allergies: morphine (Verified Allergy, Intermediate, 05/26/17) Physical Examination PHYSICAL EXAMINATION: GENERAL: Gen. appearance: No acute distress. Mood/affect: Pleasant. HEENT: Head: Normocephalic, atraumatic. Airway Impairment: No. CHEST: Shape and expansion: Normal. Expansion: Normal. SKIN: General: Warm. Color: Good. GENITOURINARY:External genitalia - wnl. NEUROLOGICAL: Mental status: Alert and oriented 3. Language: Normal. VITALS Vital Signs Date Time Temp Pulse Resp B/P (MAP) Pulse Ox O2 Delivery O2 Flow Rate FiO2 05/27/17 07:00 99.5 53 20 122/67 (85) 93 Room Air 99.5 Labs Laboratory Tests Test 05/26/17 13:50 05/26/17 14:00 05/26/17 20:55 05/27/17 07:11 Urine Collection Type Unknown Urine Color Yellow Urine Clarity Clear Urine pH 7.0 Urine Specific [place] 1.010 Urine Protein 100 mg/dL (NEG-TRACE) Urine Glucose (UA) Negative mg/dL (NEG) Urine Ketones (Stick) Trace mg/dL (NEG) Urine Blood Small (NEG) Urine Nitrite Negative (NEG) Urine Bilirubin Negative (NEG) Urine Urobilinogen Dipstick 0.2 mg/dL (0.2 mg/dL) Urine Leukocyte Esterase Negative (NEG) Urine RBC 1-2 /HPF (0-2) Urine WBC Occ /HPF (0-4) Urine Squamous Epithelial Cells Mod /LPF Urine Bacteria 0 /HPF (0-FEW) White Blood Count 13.4 x10^3/uL (4.0-11.0) Red Blood Count 4.74 x10^6/uL (3.50-5.40) Hemoglobin 13.6 g/dL (12.0-15.5) Hematocrit 41.7 % (36.0-47.0) Mean Corpuscular Volume 88 fL (79-100) Mean Corpuscular Hemoglobin 29 pg (25-35) Mean Corpuscular Hemoglobin Concent 33 g/dL (31-37) Red Cell Distribution Width 15.8 % (11.5-14.5) Platelet Count 228 x10^3/uL (140-400) Neutrophils (%) (Auto) 91 % (31-73) Lymphocytes (%) (Auto) 5 % (24-48) Monocytes (%) (Auto) 3 % (0-9) Eosinophils (%) (Auto) 0 % (0-3) Basophils (%) (Auto) 1 % (0-3) Neutrophils # (Auto) 12.2 x10^3uL (1.8-7.7) Lymphocytes # (Auto) 0.7 x10^3/uL (1.0-4.8) Monocytes # (Auto) 0.4 x10^3/uL (0.0-1.1) Eosinophils # (Auto) 0.0 x10^3/uL (0.0-0.7) Basophils # (Auto) 0.1 x10^3/uL (0.0-0.2) Segmented Neutrophils % 88 % (35-66) Band Neutrophils % 3 % (0-9) Lymphocytes % 9 % (24-48) Platelet Estimate Adequate (ADEQUATE) Sodium Level 139 mmol/L (136-145) Potassium Level 3.7 mmol/L (3.5-5.1) Chloride Level 104 mmol/L (98-107) Carbon Dioxide Level 29 mmol/L (21-32) Anion Gap 6 (6-14) Blood Urea Nitrogen 12 mg/dL (7-20) Creatinine 1.4 mg/dL (0.6-1.0) Estimated GFR (Cockcroft-Gault) 47.2 BUN/Creatinine Ratio 9 (6-20) Glucose Level 147 mg/dL (70-99) Calcium Level 9.3 mg/dL (8.5-10.1) Total Bilirubin 1.2 mg/dL (0.2-1.0) Aspartate Amino Transf (AST/SGOT) 27 U/L (15-37) Alanine Aminotransferase (ALT/SGPT) 24 U/L (14-59) Alkaline Phosphatase 75 U/L (46-116) Total Protein 10.1 g/dL (6.4-8.2) Albumin 3.9 g/dL (3.4-5.0) Albumin/Globulin Ratio 0.6 (1.0-1.7) Lipase 104 U/L (73-393) Glucose (Fingerstick) 142 mg/dL (70-99) 108 mg/dL (70-99) Test 05/27/17 07:40 White Blood Count 10.2 x10^3/uL (4.0-11.0) Red Blood Count 4.34 x10^6/uL (3.50-5.40) Hemoglobin 12.6 g/dL (12.0-15.5) Hematocrit 38.5 % (36.0-47.0) Mean Corpuscular Volume 89 fL (79-100) Mean Corpuscular Hemoglobin 29 pg (25-35) Mean Corpuscular Hemoglobin Concent 33 g/dL (31-37) Red Cell Distribution Width 15.7 % (11.5-14.5) Platelet Count 226 x10^3/uL (140-400) Neutrophils (%) (Auto) 77 % (31-73) Lymphocytes (%) (Auto) 13 % (24-48) Monocytes (%) (Auto) 9 % (0-9) Eosinophils (%) (Auto) 0 % (0-3) Basophils (%) (Auto) 0 % (0-3) Neutrophils # (Auto) 7.9 x10^3uL (1.8-7.7) Lymphocytes # (Auto) 1.3 x10^3/uL (1.0-4.8) Monocytes # (Auto) 0.9 x10^3/uL (0.0-1.1) Eosinophils # (Auto) 0.0 x10^3/uL (0.0-0.7) Basophils # (Auto) 0.0 x10^3/uL (0.0-0.2) Sodium Level 141 mmol/L (136-145) Potassium Level 3.6 mmol/L (3.5-5.1) Chloride Level 105 mmol/L (98-107) Carbon Dioxide Level 31 mmol/L (21-32) Anion Gap 5 (6-14) Blood Urea Nitrogen 15 mg/dL (7-20) Creatinine 2.1 mg/dL (0.6-1.0) Estimated GFR (Cockcroft-Gault) 29.6 Glucose Level 101 mg/dL (70-99) Calcium Level 8.9 mg/dL (8.5-10.1) Laboratory Tests Test 05/26/17 13:50 05/26/17 14:00 05/26/17 20:55 05/27/17 07:11 Urine Collection Type Unknown Urine Color Yellow Urine Clarity Clear Urine pH 7.0 Urine Specific [place] 1.010 Urine Protein 100 mg/dL (NEG-TRACE) Urine Glucose (UA) Negative mg/dL (NEG) Urine Ketones (Stick) Trace mg/dL (NEG) Urine Blood Small (NEG) Urine Nitrite Negative (NEG) Urine Bilirubin Negative (NEG) Urine Urobilinogen Dipstick 0.2 mg/dL (0.2 mg/dL) Urine Leukocyte Esterase Negative (NEG) Urine RBC 1-2 /HPF (0-2) Urine WBC Occ /HPF (0-4) Urine Squamous Epithelial Cells Mod /LPF Urine Bacteria 0 /HPF (0-FEW) White Blood Count 13.4 x10^3/uL (4.0-11.0) Red Blood Count 4.74 x10^6/uL (3.50-5.40) Hemoglobin 13.6 g/dL (12.0-15.5) Hematocrit 41.7 % (36.0-47.0) Mean Corpuscular Volume 88 fL (79-100) Mean Corpuscular Hemoglobin 29 pg (25-35) Mean Corpuscular Hemoglobin Concent 33 g/dL (31-37) Red Cell Distribution Width 15.8 % (11.5-14.5) Platelet Count 228 x10^3/uL (140-400) Neutrophils (%) (Auto) 91 % (31-73) Lymphocytes (%) (Auto) 5 % (24-48) Monocytes (%) (Auto) 3 % (0-9) Eosinophils (%) (Auto) 0 % (0-3) Basophils (%) (Auto) 1 % (0-3) Neutrophils # (Auto) 12.2 x10^3uL (1.8-7.7) Lymphocytes # (Auto) 0.7 x10^3/uL (1.0-4.8) Monocytes # (Auto) 0.4 x10^3/uL (0.0-1.1) Eosinophils # (Auto) 0.0 x10^3/uL (0.0-0.7) Basophils # (Auto) 0.1 x10^3/uL (0.0-0.2) Segmented Neutrophils % 88 % (35-66) Band Neutrophils % 3 % (0-9) Lymphocytes % 9 % (24-48) Platelet Estimate Adequate (ADEQUATE) Sodium Level 139 mmol/L (136-145) Potassium Level 3.7 mmol/L (3.5-5.1) Chloride Level 104 mmol/L (98-107) Carbon Dioxide Level 29 mmol/L (21-32) Anion Gap 6 (6-14) Blood Urea Nitrogen 12 mg/dL (7-20) Creatinine 1.4 mg/dL (0.6-1.0) Estimated GFR (Cockcroft-Gault) 47.2 BUN/Creatinine Ratio 9 (6-20) Glucose Level 147 mg/dL (70-99) Calcium Level 9.3 mg/dL (8.5-10.1) Total Bilirubin 1.2 mg/dL (0.2-1.0) Aspartate Amino Transf (AST/SGOT) 27 U/L (15-37) Alanine Aminotransferase (ALT/SGPT) 24 U/L (14-59) Alkaline Phosphatase 75 U/L (46-116) Total Protein 10.1 g/dL (6.4-8.2) Albumin 3.9 g/dL (3.4-5.0) Albumin/Globulin Ratio 0.6 (1.0-1.7) Lipase 104 U/L (73-393) Glucose (Fingerstick) 142 mg/dL (70-99) 108 mg/dL (70-99) Test 05/27/17 07:40 White Blood Count 10.2 x10^3/uL (4.0-11.0) Red Blood Count 4.34 x10^6/uL (3.50-5.40) Hemoglobin 12.6 g/dL (12.0-15.5) Hematocrit 38.5 % (36.0-47.0) Mean Corpuscular Volume 89 fL (79-100) Mean Corpuscular Hemoglobin 29 pg (25-35) Mean Corpuscular Hemoglobin Concent 33 g/dL (31-37) Red Cell Distribution Width 15.7 % (11.5-14.5) Platelet Count 226 x10^3/uL (140-400) Neutrophils (%) (Auto) 77 % (31-73) Lymphocytes (%) (Auto) 13 % (24-48) Monocytes (%) (Auto) 9 % (0-9) Eosinophils (%) (Auto) 0 % (0-3) Basophils (%) (Auto) 0 % (0-3) Neutrophils # (Auto) 7.9 x10^3uL (1.8-7.7) Lymphocytes # (Auto) 1.3 x10^3/uL (1.0-4.8) Monocytes # (Auto) 0.9 x10^3/uL (0.0-1.1) Eosinophils # (Auto) 0.0 x10^3/uL (0.0-0.7) Basophils # (Auto) 0.0 x10^3/uL (0.0-0.2) Sodium Level 141 mmol/L (136-145) Potassium Level 3.6 mmol/L (3.5-5.1) Chloride Level 105 mmol/L (98-107) Carbon Dioxide Level 31 mmol/L (21-32) Anion Gap 5 (6-14) Blood Urea Nitrogen 15 mg/dL (7-20) Creatinine 2.1 mg/dL (0.6-1.0) Estimated GFR (Cockcroft-Gault) 29.6 Glucose Level 101 mg/dL (70-99) Calcium Level 8.9 mg/dL (8.5-10.1) Assessment/Plan Patient is a very pleasant 56-year-old Afro-[place] female with history of right flank and abdominal pain for 5 days. Patient came in the emergency room and was diagnosed with a 4 mm right distal ureteral stone. Patient with no prior history of stones. Patient has history of arthritis obesity diabetes hypertension. Patient had a prior cholecystectomy. Patient is being treated also for hypertension in the emergency room. Patient was admitted for further evaluation and pain control. On physical examination patient with tenderness in the right flank and abdomen. No tenderness in the left side of the abdomen. I discussed the with patient the options alternatives benefits risks and possible complications of medical expulsive therapy versus surgical intervention with cystoscopy right retrograde Polygram possible ureteroscopy possible laser lithotripsy and possible ureteral stent placement. Patient would like to try medical expulsive therapy right now and will reevaluate the patient in the morning and then proceed accordingly. WESTON ÁLVAREZ MD May 27, 2017 10:01
[2017-05-27] MEDS ORDERED: DEXTROSE 50% 25 GM / 50ML DISP.SYRIN. IV PRN (10:30)
--- NOTE | 2017-05-27 10:34 | PDOC1 ---
HISTORY AND PHYSICAL Chief Complaint Chief Complaint This is 56 year old female has been admitted with a chief complaint of rt flank pain, found to have rt ureteral stone ,obstructing rt ureter at ureter blader junction.no prior kidney stones Problems: Past Medical History Cardiovascular: HTN Endocrine: Diabetes Past Surgical History Past Surgical History: Appendectomy, Cholecystectomy Past Family History Family History: Diabetes, Hypertension Past Social History PSH no smoking or alcohol Review of Symptoms Review of Symptoms General ROS: positive for rt side flank pain. Psychological ROS: negative Ophthalmic ROS: negative ENT ROS: negative Allergy and Immunology ROS: negative Hematology and Lymphatic: negative Endocrine ROS: negative Respiratory ROS: no cold, cough, dyspnea. Cardiovascular ROS: no chest pain or dyspnea on exertion Gastrointestinal ROS: no abdominal pain, change in bowel habits, or black or bloody stools Genito-Urinary ROS: no dysuria, trouble voiding, or hematuria Musculoskeletal ROS: no pain Neurological ROS: negative Dermatological ROS: no rash Medications Current Medications Acetaminophen (Tylenol) 1,000 mg 1X ONCE PO Last administered on 05/26/17 17: 07; Start 05/26/17 at 17:00; Stop 05/26/17 at 17:01; Status DC Ceftriaxone Sodium 1 gm/ Sodium Chloride 50 ml @ 100 mls/hr Q24H IV ; Start at 18:00 Ceftriaxone Sodium 50 ml @ 100 mls/hr 1X ONCE IV Last administered on 19:04; Start 05/26/17 at 18:00; Stop 05/26/17 at 18:29; Status DC Clonidine HCl (Catapres) 0.2 mg Q8HRS PRN PO HYPERTENSION, SEE COMMENTS Last administered on 05/26/17 23:14; Start 05/26/17 at 19:15 Fentanyl Citrate (Fentanyl 2ml Vial) 50 mcg PRN Q15MIN PRN IV PAIN GREATER THAN 3/10 Last administered on 05/26/17 19:16; Start 05/26/17 at 14:15; Stop at 23:01; Status DC Fentanyl Citrate (Fentanyl 2ml Vial) 50 mcg PRN Q2HR PRN IV PAIN; Start at 16:00; Stop 05/27/17 at 15:59 Fentanyl Citrate (Fentanyl 2ml Vial) 50 mcg PRN Q2HR PRN IV PAIN; Start at 19:15 Fentanyl Citrate (Fentanyl 2ml Vial) 100 mcg 1X ONCE IV Last administered on 15:54; Start 05/26/17 at 16:00; Stop 05/26/17 at 16:01; Status DC Hydralazine HCl (Apresoline) 10 mg 1X ONCE IVP Last administered on 05/26/17 15:54; Start 05/26/17 at 16:00; Stop 05/26/17 at 16:01; Status DC Hydralazine HCl (Apresoline) 10 mg PRN Q4HRS PRN IVP ELEVATED BP, SEE COMMENTS Last administered on 05/26/17 20:22; Start 05/26/17 at 19:15 Info (Do NOT chart on this entry -- for MONITORING) 1 each PRN DAILY PRN MC SEE COMMENTS; Start 05/26/17 at 15:00; Stop 05/28/17 at 14:59 Iohexol (Omnipaque 300 Mg/ml) 60 ml 1X ONCE IV Last administered on 05/26/17 15:04; Start 05/26/17 at 15:15; Stop 05/26/17 at 15:16; Status DC Ondansetron HCl (Zofran) 4 mg PRN Q8HRS PRN IV NAUSEA/VOMITING Last administered on 05/26/17 17:07; Start 05/26/17 at 16:00; Stop 05/26/17 at 23:11 ; Status DC Ondansetron HCl (Zofran) 8 mg PRN Q6HRS PRN IV NAUSEA/VOMITING Last administered on 05/26/17 23:15; Start 05/26/17 at 23:15 Promethazine HCl 12.5 mg/Sodium Chloride 50.5 ml @ 101 mls/hr PRN Q6HRS PRN IV NAUSEA; Start 05/26/17 at 23:15 Sodium Chloride 1,000 ml @ 100 mls/hr Q10H IV Last administered on 05/26/17 20:13; Start 05/26/17 at 17:00; Stop 05/27/17 at 16:59 Tamsulosin HCl (Flomax) 0.4 mg 1X ONCE PO Last administered on 05/26/17 15:53 ; Start 05/26/17 at 16:00; Stop 05/26/17 at 16:01; Status DC Allergy Allergies Coded Allergies Type Severity Reaction Last Updated Verified morphine Allergy Intermediate 05/26/17 Yes Physical Exam Physical Exam General appearance -obese . alert,well appearing, and in no distress and oriented to person, place, and time Mental Status - alert, oriented to person, place, and time, affect appropriate to mood Head - normal Chest - clear to auscultation, no wheezes, rales or rhonchi, symmetric air entry Heart - S1 and S2 normal Abdomen - soft, nontender, nondistended, no masses or organomegaly Neurological - alert and oriented, no focal deficits Musculoskeletal - no muscular tenderness noted Extremities - no pedal edema Skin - warm and dry Labs Laboratory Tests Test 05/26/17 13:50 05/26/17 14:00 05/26/17 20:55 05/27/17 07:11 Urine Collection Type Unknown Urine Color Yellow Urine Clarity Clear Urine pH 7.0 Urine Specific Maud 1.010 Urine Protein 100 mg/dL (NEG-TRACE) Urine Glucose (UA) Negative mg/dL (NEG) Urine Ketones (Stick) Trace mg/dL (NEG) Urine Blood Small (NEG) Urine Nitrite Negative (NEG) Urine Bilirubin Negative (NEG) Urine Urobilinogen Dipstick 0.2 mg/dL (0.2 mg/dL) Urine Leukocyte Esterase Negative (NEG) Urine RBC 1-2 /HPF (0-2) Urine WBC Occ /HPF (0-4) Urine Squamous Epithelial Cells Mod /LPF Urine Bacteria 0 /HPF (0-FEW) White Blood Count 13.4 x10^3/uL (4.0-11.0) Red Blood Count 4.74 x10^6/uL (3.50-5.40) Hemoglobin 13.6 g/dL (12.0-15.5) Hematocrit 41.7 % (36.0-47.0) Mean Corpuscular Volume 88 fL (79-100) Mean Corpuscular Hemoglobin 29 pg (25-35) Mean Corpuscular Hemoglobin Concent 33 g/dL (31-37) Red Cell Distribution Width 15.8 % (11.5-14.5) Platelet Count 228 x10^3/uL (140-400) Neutrophils (%) (Auto) 91 % (31-73) Lymphocytes (%) (Auto) 5 % (24-48) Monocytes (%) (Auto) 3 % (0-9) Eosinophils (%) (Auto) 0 % (0-3) Basophils (%) (Auto) 1 % (0-3) Neutrophils # (Auto) 12.2 x10^3uL (1.8-7.7) Lymphocytes # (Auto) 0.7 x10^3/uL (1.0-4.8) Monocytes # (Auto) 0.4 x10^3/uL (0.0-1.1) Eosinophils # (Auto) 0.0 x10^3/uL (0.0-0.7) Basophils # (Auto) 0.1 x10^3/uL (0.0-0.2) Segmented Neutrophils % 88 % (35-66) Band Neutrophils % 3 % (0-9) Lymphocytes % 9 % (24-48) Platelet Estimate Adequate (ADEQUATE) Sodium Level 139 mmol/L (136-145) Potassium Level 3.7 mmol/L (3.5-5.1) Chloride Level 104 mmol/L (98-107) Carbon Dioxide Level 29 mmol/L (21-32) Anion Gap 6 (6-14) Blood Urea Nitrogen 12 mg/dL (7-20) Creatinine 1.4 mg/dL (0.6-1.0) Estimated GFR (Cockcroft-Gault) 47.2 BUN/Creatinine Ratio 9 (6-20) Glucose Level 147 mg/dL (70-99) Calcium Level 9.3 mg/dL (8.5-10.1) Total Bilirubin 1.2 mg/dL (0.2-1.0) Aspartate Amino Transf (AST/SGOT) 27 U/L (15-37) Alanine Aminotransferase (ALT/SGPT) 24 U/L (14-59) Alkaline Phosphatase 75 U/L (46-116) Total Protein 10.1 g/dL (6.4-8.2) Albumin 3.9 g/dL (3.4-5.0) Albumin/Globulin Ratio 0.6 (1.0-1.7) Lipase 104 U/L (73-393) Glucose (Fingerstick) 142 mg/dL (70-99) 108 mg/dL (70-99) Test 05/27/17 07:40 White Blood Count 10.2 x10^3/uL (4.0-11.0) Red Blood Count 4.34 x10^6/uL (3.50-5.40) Hemoglobin 12.6 g/dL (12.0-15.5) Hematocrit 38.5 % (36.0-47.0) Mean Corpuscular Volume 89 fL (79-100) Mean Corpuscular Hemoglobin 29 pg (25-35) Mean Corpuscular Hemoglobin Concent 33 g/dL (31-37) Red Cell Distribution Width 15.7 % (11.5-14.5) Platelet Count 226 x10^3/uL (140-400) Neutrophils (%) (Auto) 77 % (31-73) Lymphocytes (%) (Auto) 13 % (24-48) Monocytes (%) (Auto) 9 % (0-9) Eosinophils (%) (Auto) 0 % (0-3) Basophils (%) (Auto) 0 % (0-3) Neutrophils # (Auto) 7.9 x10^3uL (1.8-7.7) Lymphocytes # (Auto) 1.3 x10^3/uL (1.0-4.8) Monocytes # (Auto) 0.9 x10^3/uL (0.0-1.1) Eosinophils # (Auto) 0.0 x10^3/uL (0.0-0.7) Basophils # (Auto) 0.0 x10^3/uL (0.0-0.2) Sodium Level 141 mmol/L (136-145) Potassium Level 3.6 mmol/L (3.5-5.1) Chloride Level 105 mmol/L (98-107) Carbon Dioxide Level 31 mmol/L (21-32) Anion Gap 5 (6-14) Blood Urea Nitrogen 15 mg/dL (7-20) Creatinine 2.1 mg/dL (0.6-1.0) Estimated GFR (Cockcroft-Gault) 29.6 Glucose Level 101 mg/dL (70-99) Calcium Level 8.9 mg/dL (8.5-10.1) Laboratory Tests Test 05/26/17 13:50 05/26/17 14:00 05/26/17 20:55 05/27/17 07:11 Urine Collection Type Unknown Urine Color Yellow Urine Clarity Clear Urine pH 7.0 Urine Specific Maud 1.010 Urine Protein 100 mg/dL (NEG-TRACE) Urine Glucose (UA) Negative mg/dL (NEG) Urine Ketones (Stick) Trace mg/dL (NEG) Urine Blood Small (NEG) Urine Nitrite Negative (NEG) Urine Bilirubin Negative (NEG) Urine Urobilinogen Dipstick 0.2 mg/dL (0.2 mg/dL) Urine Leukocyte Esterase Negative (NEG) Urine RBC 1-2 /HPF (0-2) Urine WBC Occ /HPF (0-4) Urine Squamous Epithelial Cells Mod /LPF Urine Bacteria 0 /HPF (0-FEW) White Blood Count 13.4 x10^3/uL (4.0-11.0) Red Blood Count 4.74 x10^6/uL (3.50-5.40) Hemoglobin 13.6 g/dL (12.0-15.5) Hematocrit 41.7 % (36.0-47.0) Mean Corpuscular Volume 88 fL (79-100) Mean Corpuscular Hemoglobin 29 pg (25-35) Mean Corpuscular Hemoglobin Concent 33 g/dL (31-37) Red Cell Distribution Width 15.8 % (11.5-14.5) Platelet Count 228 x10^3/uL (140-400) Neutrophils (%) (Auto) 91 % (31-73) Lymphocytes (%) (Auto) 5 % (24-48) Monocytes (%) (Auto) 3 % (0-9) Eosinophils (%) (Auto) 0 % (0-3) Basophils (%) (Auto) 1 % (0-3) Neutrophils # (Auto) 12.2 x10^3uL (1.8-7.7) Lymphocytes # (Auto) 0.7 x10^3/uL (1.0-4.8) Monocytes # (Auto) 0.4 x10^3/uL (0.0-1.1) Eosinophils # (Auto) 0.0 x10^3/uL (0.0-0.7) Basophils # (Auto) 0.1 x10^3/uL (0.0-0.2) Segmented Neutrophils % 88 % (35-66) Band Neutrophils % 3 % (0-9) Lymphocytes % 9 % (24-48) Platelet Estimate Adequate (ADEQUATE) Sodium Level 139 mmol/L (136-145) Potassium Level 3.7 mmol/L (3.5-5.1) Chloride Level 104 mmol/L (98-107) Carbon Dioxide Level 29 mmol/L (21-32) Anion Gap 6 (6-14) Blood Urea Nitrogen 12 mg/dL (7-20) Creatinine 1.4 mg/dL (0.6-1.0) Estimated GFR (Cockcroft-Gault) 47.2 BUN/Creatinine Ratio 9 (6-20) Glucose Level 147 mg/dL (70-99) Calcium Level 9.3 mg/dL (8.5-10.1) Total Bilirubin 1.2 mg/dL (0.2-1.0) Aspartate Amino Transf (AST/SGOT) 27 U/L (15-37) Alanine Aminotransferase (ALT/SGPT) 24 U/L (14-59) Alkaline Phosphatase 75 U/L (46-116) Total Protein 10.1 g/dL (6.4-8.2) Albumin 3.9 g/dL (3.4-5.0) Albumin/Globulin Ratio 0.6 (1.0-1.7) Lipase 104 U/L (73-393) Glucose (Fingerstick) 142 mg/dL (70-99) 108 mg/dL (70-99) Test 05/27/17 07:40 White Blood Count 10.2 x10^3/uL (4.0-11.0) Red Blood Count 4.34 x10^6/uL (3.50-5.40) Hemoglobin 12.6 g/dL (12.0-15.5) Hematocrit 38.5 % (36.0-47.0) Mean Corpuscular Volume 89 fL (79-100) Mean Corpuscular Hemoglobin 29 pg (25-35) Mean Corpuscular Hemoglobin Concent 33 g/dL (31-37) Red Cell Distribution Width 15.7 % (11.5-14.5) Platelet Count 226 x10^3/uL (140-400) Neutrophils (%) (Auto) 77 % (31-73) Lymphocytes (%) (Auto) 13 % (24-48) Monocytes (%) (Auto) 9 % (0-9) Eosinophils (%) (Auto) 0 % (0-3) Basophils (%) (Auto) 0 % (0-3) Neutrophils # (Auto) 7.9 x10^3uL (1.8-7.7) Lymphocytes # (Auto) 1.3 x10^3/uL (1.0-4.8) Monocytes # (Auto) 0.9 x10^3/uL (0.0-1.1) Eosinophils # (Auto) 0.0 x10^3/uL (0.0-0.7) Basophils # (Auto) 0.0 x10^3/uL (0.0-0.2) Sodium Level 141 mmol/L (136-145) Potassium Level 3.6 mmol/L (3.5-5.1) Chloride Level 105 mmol/L (98-107) Carbon Dioxide Level 31 mmol/L (21-32) Anion Gap 5 (6-14) Blood Urea Nitrogen 15 mg/dL (7-20) Creatinine 2.1 mg/dL (0.6-1.0) Estimated GFR (Cockcroft-Gault) 29.6 Glucose Level 101 mg/dL (70-99) Calcium Level 8.9 mg/dL (8.5-10.1) Vitals Vital Signs Date Time Temp Pulse Resp B/P (MAP) Pulse Ox O2 Delivery O2 Flow Rate FiO2 05/27/17 07:00 99.5 53 20 122/67 (85) 93 Room Air 99.5 VTE Prophylaxis VTE Prophylaxis Devices: No VTE Pharmacological Prophylaxi: Contraindicated (surgery) Assessment Assessment IMP: rt ureteral stone hydronephrosis rt HTN DM type 2 Morbid Obesity BMI 60 Plan Plan iv fluids urology consult cystoscopy and stone removal. cr 2.1 today For more details regarding further plans, please refer to the orders. GREG CHEN MD May 27, 2017 10:34
[2017-05-27] MEDS: INSULIN ASPART 300 UNITS/3 ML INSULN.PEN SQ SCH ×2 (11:52→16:54)
[2017-05-27] MEDS ORDERED: DEXAMETHASONE SOD PHOS 20 MG/5 ML VIAL. ONE (13:02)
[2017-05-27] MEDS ORDERED: LIDOCAINE 2% PF Vial for OR 5 ML VIAL. ONE (13:02)
[2017-05-27] MEDS ORDERED: FAMOTIDINE 20 MG/2 ML VIAL ONE (13:02)
[2017-05-27] MEDS ORDERED: ONDANSETRON PF 4 MG/2 ML VIAL. ONE (13:02)
[2017-05-27] MEDS ORDERED: PROPOFOL 20 ML IV ONE (13:02)
[2017-05-27] MEDS ORDERED: SUCCINYLCHOLINE 200 MG/10 ML VIAL. ONE (13:03)
[2017-05-27] MEDS ORDERED: ROCURONIUM 50 MG/5 ML VIAL. ONE (13:03)
[2017-05-27] MEDS ORDERED: fentaNYL PF VIAL 100 MCG/2 ML VIAL ONE (13:03)
[2017-05-27] MEDS ORDERED: IOHEXOL 300 MG/ML 50 ML VIAL. ONE (13:48)
[2017-05-27] MEDS ORDERED: LIDOCAINE 2% JELLY 6ML IN APPLICATOR. ONE (13:48)
[2017-05-27] MEDS ORDERED: ePHEDrine PF IN SALINE 50 MG/5 ML DISP.SYRIN IV ONE (14:13)
[2017-05-27] MEDS ORDERED: PHENYLEPHRINE in 0.9% NACL PF 1 MG/10 ML DISP.SYRIN. IV ONE (14:24)
[2017-05-27] MEDS ORDERED: GLYCOPYRROLATE 1 MG/5 ML VIAL. ONE (14:43)
[2017-05-27] MEDS ORDERED: DESFLURANE 31 TO 60 MINUTES IH ONE (14:48)
--- NOTE | 2017-05-27 14:59 | PDOC4 ---
Operative Note Operative Note pre-op dx-right ureteral stone procedure-cystoscopy, right retrograde pyelogram, right ureteroscopy with stone extraction and stent placement surgeon-radhika rubi-general Pt. to PACU in stable condition Follow up Dr. Lugo on TueJune 01, 2017 for cysto and stent removal in office WESTON LUGO MD May 27, 2017 14:59
--- NOTE | 2017-05-27 15:17 | PDOC4 ---
Operative Note Operative Note Preoperative diagnosis-right ureteral stone. Procedure-cystoscopy right retrograde Pyelogram right ureteroscopy with stone extraction and right ureteral stent placement Indications patient is a very pleasant 56-year-old -[place] female with history of right distal ureteral stone and elevated creatinine. I discussed with the patient the options alternatives benefits risks and possible complications of medical expulsive therapy versus surgical intervention with cystoscopy right retrograde pyelogram with possible ureteroscopy possible laser lithotripsy and possible ureteral stent placement. Patient understands this and wishes to proceed ahead with operation. Procedure note after obtaining informed consent patient was taken to the operating room after an excellent general anesthetic patient was placed in a dorsolithotomy position. Groin was prepped and draped in a sterile fashion and the patient was already on IV antibiotics to cover her per the procedure today. Panendoscopy and cystoscopy were then performed with the 30 and 70 lenses on the 21 Pashto cystoscope sheath. Bladder was entered and inspected. Left ureteral orifice. Within normal limits inside the right ureteral orifice the stone could be sitting just superior to the right ureteral orifice. Bladder wall was smooth and without any lesions no bladder stones or bladder tumors were identified. Following this retrograde Polygram was performed which showed dilation of the ureter above the level of the stone. Following this a floppy tip ZIP wire is passed up the right ureter past the stone to the right kidney. The right distal ureter and ureteral orifices were then gently balloon dilated the balloon dilator was removed leaving the ZIP wire in place as a safety wire. Bladder was then drained and the cystoscope withdrawn from the patient. The thin rigid ureteroscope was then passed per urethra up alongside the ZIP wire up the right ureter to the level of the stone. The stone was then grasped with the 0 tip nitinol basket and the stone and scope removed from the patient without difficulty. Stone was sent for stone analysis. Following this the ureteroscope was then replaced up the right ureter and the right ureter inspected and found to be completely intact and retrograde Polygram showed no other filling defects in the right ureter. Following this the ureteroscope was withdrawn from the patient in the scope and replaced and following this a 6 x 28 double-J stent was then passed up the ZIP wire placing one curl in the right kidney and the other curl in the bladder and his apartment stent position was checked by fluoroscopy and direct vision and found to be in good position following this the bladder was then drained and the cystoscope withdrawn from the patient. Patient tolerated the procedure very well and was taken to recovery in stable condition. Plan will be to have the patient follow up in urology office on 06/01/17 for cystoscopy and stent removal with Dr. Lugo. WESTON LUGO MD May 27, 2017 15:17
[2017-05-27] MEDS ORDERED: PROCHLORPERAZINE 10 MG/2 ML VIAL. ONE (15:24)
[2017-05-27] MEDS ORDERED: IV RINGERS,LACTATED 1000ML 1,000 ML IV SCH (15:29)
[2017-05-27] MEDS ORDERED: MEPERIDINE PF 25 MG/ML VIAL. IV PRN (15:30)
[2017-05-27] MEDS ORDERED: MIDAZOLAM HCL/PF 2 MG/2 ML VIAL. IV PRN ×2 (15:30)
[2017-05-27] MEDS ORDERED: fentaNYL PF VIAL 100 MCG/2 ML VIAL IV PRN ×3 (15:30)
[2017-05-27] MEDS ORDERED: PROCHLORPERAZINE 10 MG/2 ML VIAL. IV PRN (15:30)
[2017-05-27] MEDS ORDERED: diphenhydrAMINE 50 MG/ML VIAL IV PRN (15:30)
[2017-05-27] MEDS ORDERED: LIDOCAINE 1% 1 ML SYRINGE. ID PRN (15:30)
[2017-05-27] MEDS: hydrALAZINE 20 MG/ML VIAL. IVP PRN (15:38)
[2017-05-28] MEDS: hydrALAZINE 20 MG/ML VIAL. IVP PRN (03:29)
[2017-05-28 03:53] VITALS: BP 199/96
[2017-05-28 05:55] LABS: BASO % 0 % (0-3); EOS % 0 % (0-3); HEMOGLOBIN 13.1 g/dL (12.0-15.5); LYMPH # 1.3 x10^3/uL (1.0-4.8); LYMPH % 11 % (24-48); MEAN CORPUSCULAR HEMOGLOBIN 29 pg (25-35); MEAN CORPUSCULAR HGB CONC 34 g/dL (31-37); MEAN CORPUSCULAR VOLUME 87 fL (79-100); MONO % 5 % (0-9); NEUT % 83 % (31-73); PLATELET COUNT 256 x10^3/uL (140-400); RED CELL DISTRIBUTION WIDTH 15.5 % (11.5-14.5); WHITE BLOOD COUNT 11.5 x10^3/uL (4.0-11.0)
[2017-05-28 06:22] LABS: CREATININE 1.7 mg/dL (0.6-1.0); GFR 37.8; POTASSIUM 3.6 mmol/L (3.5-5.1)
[2017-05-28 07:00] VITALS: BP 148/77
[2017-05-28] MEDS: INSULIN ASPART 300 UNITS/3 ML INSULN.PEN SQ SCH ×2 (07:43→11:46)
[2017-05-28] MEDS ORDERED: GABA600T2 PO (08:37)
[2017-05-28] MEDS ORDERED: TIZA4TAB PO (08:37)
[2017-05-28] MEDS ORDERED: SIMV20TA3 PO (08:37)
[2017-05-28] MEDS ORDERED: MONT10TA9 PO (08:37)
[2017-05-28] MEDS ORDERED: HYDR-2869 PO (08:37)
[2017-05-28] MEDS ORDERED: CETI10TA16 PO (08:37)
[2017-05-28] MEDS ORDERED: POTA10TA12 PO (08:37)
[2017-05-28 11:00] VITALS: BP 154/81
--- NOTE | 2017-05-28 11:48 | PDOC ---
PROGRESS NOTES Subjective Subjective feels good ,had kidney stone removed yesterday Objective Objective Vital Signs Date Time Temp Pulse Resp B/P (MAP) Pulse Ox O2 Delivery O2 Flow Rate FiO2 05/28/17 11:00 97.9 74 20 154/81 (105) 96 Room Air 97.9 05/27/17 23:37 3.0 Intake and Output 05/28/17 07:00 Intake Total 0 ml Balance 0 ml Intake Oral 0 ml # Voids 2 Physical Exam Abdomen: Normal bowel sounds, Soft Heart: Regular rate, Normal S1, Normal S2 Extremities: No clubbing General: Alert HEENT: Atraumatic Lungs: Clear to auscultation MUSCULOSKELETAL: No joint tenderness Neck: Supple Neuro: Normal speech Psych/Mental Status: Mental status NL Skin: No breakdown Diagnosis Problem List Problems Medical Problems: (1) Hypertension Status: Acute (2) Right ureteral stone Status: Acute (3) Ureteral obstruction, right Status: Acute Assessment Assessment Problems Medical Problems: (1) Hypertension Status: Acute (2) Right ureteral stone Status: Acute (3) Ureteral obstruction, right Status: Acute IMP: rt ureteral stone hydronephrosis rt HTN DM type 2 Morbid Obesity BMI 60 Plan Plan iv fluids urology consult appreciated cystoscopy and stone removal. cr 1.7 today, trending down For more details regarding further plans, please refer to the orders. Procedure:05/27/17 pre-op dx-right ureteral stone procedure-cystoscopy, right retrograde pyelogram, right ureteroscopy with stone extraction and stent placement surgeon-radhika rubi-general will repeat kidney function tuesday in office Follow up Dr. Lugo on TueJune 01, 2017 for cysto and stent removal in office Problems: Plan Plan of Care Problems Medical Problems: (1) Hypertension Status: Acute (2) Right ureteral stone Status: Acute (3) Ureteral obstruction, right Status: Acute Comment Review of Relevant I have reviewed the following items hal (where applicable) has been applied. Labs Laboratory Tests Test 05/27/17 15:10 05/27/17 16:53 05/27/17 20:35 05/28/17 04:51 Glucose (Fingerstick) 118 mg/dL (70-99) 126 mg/dL (70-99) 171 mg/dL (70-99) White Blood Count 11.5 x10^3/uL (4.0-11.0) Red Blood Count 4.50 x10^6/uL (3.50-5.40) Hemoglobin 13.1 g/dL (12.0-15.5) Hematocrit 39.0 % (36.0-47.0) Mean Corpuscular Volume 87 fL (79-100) Mean Corpuscular Hemoglobin 29 pg (25-35) Mean Corpuscular Hemoglobin Concent 34 g/dL (31-37) Red Cell Distribution Width 15.5 % (11.5-14.5) Platelet Count 256 x10^3/uL (140-400) Neutrophils (%) (Auto) 83 % (31-73) Lymphocytes (%) (Auto) 11 % (24-48) Monocytes (%) (Auto) 5 % (0-9) Eosinophils (%) (Auto) 0 % (0-3) Basophils (%) (Auto) 0 % (0-3) Neutrophils # (Auto) 9.6 x10^3uL (1.8-7.7) Lymphocytes # (Auto) 1.3 x10^3/uL (1.0-4.8) Monocytes # (Auto) 0.6 x10^3/uL (0.0-1.1) Eosinophils # (Auto) 0.0 x10^3/uL (0.0-0.7) Basophils # (Auto) 0.0 x10^3/uL (0.0-0.2) Sodium Level 140 mmol/L (136-145) Potassium Level 3.6 mmol/L (3.5-5.1) Chloride Level 102 mmol/L (98-107) Carbon Dioxide Level 26 mmol/L (21-32) Anion Gap 12 (6-14) Blood Urea Nitrogen 17 mg/dL (7-20) Creatinine 1.7 mg/dL (0.6-1.0) Estimated GFR (Cockcroft-Gault) 37.8 Glucose Level 113 mg/dL (70-99) Calcium Level 9.0 mg/dL (8.5-10.1) Test 05/28/17 07:24 05/28/17 11:40 Glucose (Fingerstick) 108 mg/dL (70-99) 106 mg/dL (70-99) Medications Current Medications Ceftriaxone Sodium 1 gm/ Sodium Chloride 50 ml @ 100 mls/hr Q24H IV ; Start at 18:00 Desflurane (Suprane) 30 ml STK-MED ONCE IH ; Start 05/27/17 at 14:48; Stop 05/27 at 16:39; Status DC Dexamethasone Sodium Phosphate (Decadron) 20 mg STK-MED ONCE .ROUTE ; Start at 13:02; Stop 05/27/17 at 16:39; Status DC Diphenhydramine HCl (Benadryl) 12.5 mg PRN Q2HR PRN IV ITCHING; Start 05/27/17 at 15:30; Stop 05/27/17 at 16:41; Status DC Ephedrine Sulfate 50 mg STK-MED ONCE IV ; Start 05/27/17 at 14:13; Stop at 16:39; Status DC Famotidine (Pepcid) 20 mg STK-MED ONCE .ROUTE ; Start 05/27/17 at 13:02; Stop at 16:39; Status DC Fentanyl Citrate (Fentanyl 2ml Vial) 25 mcg PRN Q5MIN PRN IV X 2 DOSES FOR PAIN ; Start 05/27/17 at 15:30; Stop 05/27/17 at 16:39; Status DC Fentanyl Citrate (Fentanyl 2ml Vial) 50 mcg PRN Q5MIN PRN IV X 2 DOSES FOR PAIN ; Start 05/27/17 at 15:30; Stop 05/27/17 at 16:39; Status DC Fentanyl Citrate (Fentanyl 2ml Vial) 50 mcg PRN Q5MIN PRN IV Acute Pain; Start 05/27/17 at 15:30; Stop 05/27/17 at 16:41; Status DC Fentanyl Citrate (Fentanyl 2ml Vial) 100 mcg STK-MED ONCE .ROUTE ; Start at 13:03; Stop 05/27/17 at 13:04; Status DC Glycopyrrolate (Robinul) 1 mg STK-MED ONCE .ROUTE ; Start 05/27/17 at 14:43; Stop 05/27/17 at 16:39; Status DC Hydralazine HCl (Apresoline) 50 mg 1X ONCE PO ; Start 05/28/17 at 11:45; Stop at 11:46; Status UNV Insulin Aspart (NovoLOG) 0-7 UNITS TIDWMEALS SQ ; Start 05/27/17 at 12:00 Iohexol (Omnipaque 300 Mg/ml) 50 ml STK-MED ONCE .ROUTE Last administered on 14:26; Start 05/27/17 at 13:48; Stop 05/27/17 at 16:39; Status DC Lidocaine HCl 2 ml 1X PRN PRN ID IV START; Start 05/27/17 at 15:30; Stop at 16:39; Status DC Lidocaine HCl (Glydo (Lidocaine) Jelly) 6 oralia STK-MED ONCE .ROUTE Last administered on 05/27/17 14:27; Start 05/27/17 at 13:48; Stop 05/27/17 at 16:39 ; Status DC Lidocaine HCl (Lidocaine Pf 2% Vial) 5 ml STK-MED ONCE .ROUTE ; Start 05/27/17 at 13:02; Stop 05/27/17 at 16:39; Status DC Meperidine HCl (Demerol) 12.5 mg PRN Q5MIN PRN IV SHIVERING; Start 05/27/17 at 15:30; Stop 05/27/17 at 16:39; Status DC Midazolam HCl (Versed) 1 mg PRN 1X PRN IV PRIOR TO PROCEDURE; Start 05/27/17 at 15:30; Stop 05/27/17 at 16:39; Status DC Midazolam HCl (Versed) 2 mg PRN 1X PRN IV PRIOR TO PROCEDURE; Start 05/27/17 at 15:30; Stop 05/27/17 at 16:39; Status DC Ondansetron HCl (Zofran) 4 mg STK-MED ONCE .ROUTE ; Start 05/27/17 at 13:02; Stop 05/27/17 at 16:39; Status DC Phenylephrine HCl 1 mg STK-MED ONCE IV ; Start 05/27/17 at 14:24; Stop 05/27/17 at 16:39; Status DC Prochlorperazine Edisylate (Compazine) 5 mg PRN Q6HRS PRN IV Nausea/Vomiting, 1st Choice Last administered on 05/27/17 15:38; Start 05/27/17 at 15:30; Stop 05/27/17 at 16:41; Status DC Prochlorperazine Edisylate (Compazine) 10 mg STK-MED ONCE .ROUTE ; Start at 15:24; Stop 05/27/17 at 16:39; Status DC Propofol 20 ml @ As Directed STK-MED ONCE IV ; Start 05/27/17 at 13:02; Stop at 13:03; Status DC Ringer's Solution 1,000 ml @ 125 mls/hr Q8H IV ; Start 05/27/17 at 15:29; Stop 05/27/17 at 16:36; Status DC Rocuronium [place] (Zemuron) 50 mg STK-MED ONCE .ROUTE ; Start 05/27/17 at 13:03 ; Stop 05/27/17 at 16:39; Status DC Succinylcholine Chloride (Anectine) 200 mg STK-MED ONCE .ROUTE ; Start 05/27/17 at 13:03; Stop 05/27/17 at 16:39; Status DC Vitals/I & O Vital Sign - Last 24 Hours 05/27/17 05/27/17 05/27/17 05/27/17 13:27 14:58 15:13 15:13 Temp 97.3 99.8 97.3 99.8 Pulse 52 62 54 Resp 16 16 16 B/P (MAP) 131/77 190/97 186/86 Pulse Ox 92 98 97 O2 Delivery Room Air Simple Mask Room Air Nasal Cannula O2 Flow Rate 10 2 05/27/17 05/27/17 05/27/17 05/27/17 15:28 15:38 15:43 16:17 Temp 97.3 97.5 97.3 97.5 Pulse 71 65 69 72 Resp 16 16 20 B/P (MAP) 175/96 175/96 167/90 176/87 (116) Pulse Ox 95 95 97 O2 Delivery Nasal Cannula Nasal Cannula Room Air O2 Flow Rate 2 2 05/27/17 05/27/17 05/27/17 05/27/17 16:18 16:33 17:03 17:18 Temp 97.5 97.5 97.5 97.5 97.5 97.5 97.5 97.5 Pulse 74 70 61 68 Resp 20 20 20 20 B/P (MAP) 139/96 (110) 164/83 (110) 167/82 (110) 166/86 (112) Pulse Ox 92 92 92 92 O2 Delivery Room Air Room Air Room Air Room Air 05/27/17 05/27/17 05/27/17 05/27/17 17:48 19:41 20:00 23:37 Temp 97.5 97.4 97.7 97.5 97.4 97.7 Pulse 65 67 70 Resp 20 18 B/P (MAP) 156/89 (111) 164/109 (127) 174/85 (114) Pulse Ox 92 96 94 O2 Delivery Room Air Room Air Room Air Nasal Cannula O2 Flow Rate 3.0 05/28/17 05/28/17 05/28/17 05/28/17 03:29 03:53 07:00 08:10 Temp 97.7 97.9 97.7 97.9 Pulse 69 70 Resp 18 20 B/P (MAP) 199/96 199/96 (130) 148/77 (100) Pulse Ox 93 92 O2 Delivery Room Air Room Air Room Air 05/28/17 11:00 Temp 97.9 97.9 Pulse 74 Resp 20 B/P (MAP) 154/81 (105) Pulse Ox 96 O2 Delivery Room Air Intake and Output 05/27/17 05/27/17 05/28/17 15:00 23:00 07:00 Intake Total 0 ml Balance 0 ml GREG CHEN MD May 28, 2017 11:48
[2017-05-28] MEDS ORDERED: CEPH-263 PO (11:54)
[2017-05-28 12:03] VITALS: BP 154/81
--- NOTE | 2017-05-29 09:30 | PDOC3 ---
IM DISCHARGE SUMMARY Date of Admission Date of Admission Date of Admission: May 26, 2017 at 16:00 Date of Discharge Date of Discharge May Primary Diagnosis Primary Diagnosis Problems Medical Problems: (1) Hypertension Status: Acute (2) Right ureteral stone Status: Acute (3) Ureteral obstruction, right Status: Acute Problems: Consults Consults dr Matt Lugo urology Procedures Procedures CT Abd and Pelvis procedure-cystoscopy, right retrograde pyelogram, right ureteroscopy with stone extraction and stent placement [facility] Labs Labs Laboratory Tests Test 05/28/17 11:40 Glucose (Fingerstick) 106 mg/dL (70-99) Brief hospital course Brief hospital course This is 56 year old female who presented with rt flank pain , found to have rt ureteral stone impacted at blader and ureteral junction, mild hydronephrosis and mild enlarged rt kidney.pt seen by urology .procedure-cystoscopy, right retrograde pyelogram, right ureteroscopy with stone extraction and stent placement done by filomena [facility]. Her cr went up to 2.1 from 1.4. it came down to 1.7 next day, she was discharged, f/u urology in 5 days for stent removal in office. For more details regarding the past history, family history, social history, surgical history and other details, please refer to History and Physical. Medications Current Medications Hydralazine HCl (Apresoline) 50 mg 1X ONCE PO Last administered on 05/28/17t 12 :03; Start 05/28/17 at 11:45; Stop 05/28/17 at 11:47; Status DC Allergy Allergies Coded Allergies Type Severity Reaction Last Updated Verified morphine Allergy Intermediate 05/26/17 Yes Follow up in 5 days. DISPOSITION: Home Comments Discharge Management - 25 minutes. For other details please refer to discharge instructions GREG CHEN MD May 29, 2017 09:30
== END 2017-05-28 14:43 | disposition home or self-care (01) | DRG 669 ==
LOC: ER 13:35 → ED HOLD 16:00 → 4 NORTH 19:14
PROVIDERS: ADMIT Internal Medicine; ATTEND Internal Medicine
PROC: 0T768DZ Dilation of Right Ureter with Intraluminal Device, Via Natural or Artificial Opening Endoscopic (ICD-10-PCS; 2017-05-27)
PROC: BT1D1ZZ Fluoroscopy of Right Kidney, Ureter and Bladder using Low Osmolar Contrast (ICD-10-PCS; 2017-05-27)
PROC: 0TC68ZZ Extirpation of Matter from Right Ureter, Via Natural or Artificial Opening Endoscopic (ICD-10-PCS; principal; 2017-05-27 13:45)
DX: N13.2 Hydronephrosis with renal and ureteral calculous obstruction (principal); Z68.44 Body mass index [BMI] 60.0-69.9, adult; E11.9 Type 2 diabetes mellitus without complications; E66.01 Morbid (severe) obesity due to excess calories; I10 Essential (primary) hypertension; M19.90 Unspecified osteoarthritis, unspecified site; Z88.5 Allergy status to narcotic agent; Z82.49 Family history of ischemic heart disease and other diseases of the circulatory system; Z83.3 Family history of diabetes mellitus; Z90.49 Acquired absence of other specified parts of digestive tract; Z79.899 Other long term (current) drug therapy
CPT/HCPCS: 36415; 74177; 74420; 80048; 80053; 81001; 82962; 83690; 85007; 85027; 87086; 96374; 96375; C1769; C2617; J0330; J0360; J0690; J0780; J1100; J1815; J2370; J2405; J2704; J3010; J3490; J7030; Q9967; S0028; 99285-25

== ENCOUNTER 2018-04-04 06:33 | Inpatient (IN) | payer MEDICARE ==
[2018-04-04] MEDS: ASPIRIN CHEWABLE 81 MG TABLET. PO (07:41)
[2018-04-04 07:42] LABS: ADD MAN DIFF? NO
[2018-04-04] MEDS: NITROGLYCERIN OINT 1 GM PACKET. TP (07:44)
[2018-04-04] MEDS: FUROSEMIDE 20 MG/2 ML VIAL. IV (07:46)
[2018-04-04 07:51] LABS: BASO % 1 % (0-3); EOS # 0.1 x10^3/uL (0.0-0.7); EOS % 1 % (0-3); HEMATOCRIT 37.3 % (36.0-47.0); HEMOGLOBIN 12.4 g/dL (12.0-15.5); LYMPH # 1.1 x10^3/uL (1.0-4.8); LYMPH % 16 % (24-48); MEAN CORPUSCULAR HEMOGLOBIN 29 pg (25-35); MEAN CORPUSCULAR HGB CONC 33 g/dL (31-37); MEAN CORPUSCULAR VOLUME 88 fL (79-100); MONO # 0.5 x10^3/uL (0.0-1.1); MONO % 7 % (0-9); NEUT # 5.5 x10^3uL (1.8-7.7); NEUT % 76 % (31-73); PLATELET COUNT 201 x10^3/uL (140-400); RED BLOOD COUNT 4.24 x10^6/uL (3.50-5.40); RED CELL DISTRIBUTION WIDTH 15.3 % (11.5-14.5); WHITE BLOOD COUNT 7.2 x10^3/uL (4.0-11.0)
[2018-04-04 08:03] LABS: ANION GAP 10 (6-14); BLOOD UREA NITROGEN 12 mg/dL (7-20); BUN/CREATININE RATIO 12 (6-20); CALCIUM 8.6 mg/dL (8.5-10.1); CARBON DIOXIDE 24 mmol/L (21-32); CHLORIDE 104 mmol/L (98-107); GFR 69.4; GLUCOSE 94 mg/dL (70-99); POTASSIUM 4.3 mmol/L (3.5-5.1); SODIUM 138 mmol/L (136-145)
[2018-04-04 08:09] LABS: ALBUMIN 3.6 g/dL (3.4-5.0); ALBUMIN/GLOBULIN RATIO 0.7 (1.0-1.7); ALK PHOS 68 U/L (46-116); ALT (SGPT) 19 U/L (14-59); AST (SGOT) 17 U/L (15-37); TOTAL BILIRUBIN 0.8 mg/dL (0.2-1.0)
[2018-04-04 08:14] LABS: INR 1.2 (0.8-1.1); PROTHROMBIN TIME PATIENT 14.3 SEC (11.7-14.0)
[2018-04-04 08:14] LABS: TROPONINI < 0.017 ng/mL (0.000-0.055)
[2018-04-04 08:17] LABS: NT-PRO BNP 417 pg/mL (0-124)
[2018-04-04 08:18] LABS: CKMB MASS < 0.5 ng/mL (0.0-3.6); CREATINE KINASE 57 U/L (26-192)
[2018-04-04] MEDS: ACETAMINOPHEN 500 MG TABLET PO (08:46)
[2018-04-04] MEDS: METOPROLOL SUCC 24HR ER 100 MG TAB.ER.24H. PO (09:00)
[2018-04-04] MEDS ORDERED: ALBUTEROL SULFATE 2.5 MG/3 ML NEBU. NEB (09:00)
[2018-04-04] MEDS: IPRATRPIUM/ALBUTEROL 0.5/2.5MG 3 ML NEBU. NEB ×4 (09:00→20:31)
[2018-04-04 10:14] LABS: HDLC 45 mg/dL (40-60); TRIGLYCERIDES 107 mg/dL (0-150); VLDLC 21 mg/dL (0-40)
[2018-04-04 10:22] LABS: THYROID STIM HORMONE (TSH) 2.515 uIU/mL (0.358-3.74)
[2018-04-04 10:41] LABS: CHOLESTEROL 134 mg/dL (0-200)
[2018-04-04 10:42] LABS: LDLC 68 mg/dL (0-100); NON-HDL CHOLESTEROL 89 mg/dL (0-129)
[2018-04-04] MEDS: BUDESONIDE 0.5 MG/2 ML NEBU. NEB ×2 (11:47→20:31)
[2018-04-04] MEDS: FUROSEMIDE 40 MG TABLET. PO ×2 (11:54→17:26)
[2018-04-04] MEDS: GABAPENTIN 300 MG CAPSULE. PO ×3 (11:54→20:59)
[2018-04-04] MEDS: CITALOPRAM 20 MG TABLET. PO (11:54)
[2018-04-04] MEDS: HYDROcodone/APAP 7.5/325MG 1 TAB TABLET PO ×2 (11:55→22:09)
[2018-04-04] MEDS: POTASSIUM CHLORIDE 10 MEQ TABLET.ER. PO ×2 (11:56→17:27)
[2018-04-04 12:15] LABS: BASE EXCESS ABG 5 mmol/L (-3-3); HCO3 ABG 29 mmol/L (21-28); PCO2 ABG 42 mmHg (35-46); PH ABG 7.45 (7.35-7.45); PO2 ABG 74 mmHg (75-108); SAT O2 ABG 95 % (92-99)
[2018-04-04 12:16] LABS: FIO2 ABG 21
[2018-04-04 12:30] LABS: D-DIMER 1.81 ug/mlFEU (0.00-0.50)
[2018-04-04 12:35] LABS: TROPONINI < 0.017 ng/mL (0.000-0.055)
[2018-04-04] MEDS: ONDANSETRON PF 4 MG/2 ML VIAL. IV ×2 (14:45→22:14)
[2018-04-04 15:17] LABS: TROPONINI < 0.017 ng/mL (0.000-0.055)
[2018-04-04] MEDS ORDERED: hydrALAZINE 20 MG/ML VIAL. IVP (16:00)
[2018-04-04] MEDS: PANTOPRAZOLE 40 MG TABLET.DR. PO (17:26)
[2018-04-04] MEDS: ISOSORBIDE MONONITRATE ER 30 MG TAB.ER.24H PO (17:26)
[2018-04-04] MEDS: DOXAZOSIN MESYLATE 4 MG TABLET. PO (20:59)
[2018-04-04] MEDS: SIMVASTATIN 20 MG TABLET PO (21:00)
[2018-04-04] MEDS: MONTELUKAST SODIUM 10 MG TABLET. PO (21:00)
[2018-04-04] MEDS: CETIRIZINE HCL 10 MG TABLET. PO (21:00)
[2018-04-04 21:12] LABS: POC GLUCOSE 123 mg/dL (70-99)
[2018-04-05 05:00] LABS: ADD MAN DIFF? NO
[2018-04-05 05:16] LABS: BASO % 0 % (0-3); EOS % 1 % (0-3); HEMATOCRIT 33.7 % (36.0-47.0); HEMOGLOBIN 11.2 g/dL (12.0-15.5); LYMPH % 13 % (24-48); MEAN CORPUSCULAR HEMOGLOBIN 29 pg (25-35); MEAN CORPUSCULAR HGB CONC 33 g/dL (31-37); MEAN CORPUSCULAR VOLUME 88 fL (79-100); MONO # 0.6 x10^3/uL (0.0-1.1); MONO % 8 % (0-9); NEUT # 6.4 x10^3uL (1.8-7.7); NEUT % 79 % (31-73); PLATELET COUNT 219 x10^3/uL (140-400); RED BLOOD COUNT 3.84 x10^6/uL (3.50-5.40); RED CELL DISTRIBUTION WIDTH 15.6 % (11.5-14.5); WHITE BLOOD COUNT 8.1 x10^3/uL (4.0-11.0)
[2018-04-05 05:49] LABS: ANION GAP 7 (6-14); BLOOD UREA NITROGEN 18 mg/dL (7-20); CALCIUM 8.7 mg/dL (8.5-10.1); CARBON DIOXIDE 31 mmol/L (21-32); CHLORIDE 104 mmol/L (98-107); CREATININE 1.7 mg/dL (0.6-1.0); GFR 37.6; GLUCOSE 102 mg/dL (70-99); MAGNESIUM 1.9 mg/dL (1.8-2.4); POTASSIUM 3.9 mmol/L (3.5-5.1); SODIUM 142 mmol/L (136-145)
[2018-04-05 07:51] LABS: POC GLUCOSE 82 mg/dL (70-99)
[2018-04-05] MEDS: IPRATRPIUM/ALBUTEROL 0.5/2.5MG 3 ML NEBU. NEB ×4 (08:02→20:10)
[2018-04-05] MEDS: BUDESONIDE 0.5 MG/2 ML NEBU. NEB (08:02)
[2018-04-05] MEDS: CITALOPRAM 20 MG TABLET. PO (09:20)
[2018-04-05] MEDS: GABAPENTIN 300 MG CAPSULE. PO ×3 (09:20→20:06)
[2018-04-05] MEDS: ASPIRIN ENTERIC COATED 81 MG TABLET.DR. PO (09:21)
[2018-04-05] MEDS: POTASSIUM CHLORIDE 10 MEQ TABLET.ER. PO ×2 (09:22→17:57)
[2018-04-05] MEDS: HYDROcodone/APAP 7.5/325MG 1 TAB TABLET PO ×2 (09:23→13:59)
[2018-04-05] MEDS: METOPROLOL SUCC 24HR ER 100 MG TAB.ER.24H. PO (09:23)
[2018-04-05] MEDS: ISOSORBIDE MONONITRATE ER 30 MG TAB.ER.24H PO (09:24)
[2018-04-05] MEDS: PANTOPRAZOLE 40 MG TABLET.DR. PO (09:24)
[2018-04-05 11:52] LABS: POC GLUCOSE 103 mg/dL (70-99)
[2018-04-05] MEDS ORDERED: FUROSEMIDE 40 MG TABLET. PO (13:00)
[2018-04-05] MEDS: FUROSEMIDE 40 MG TABLET. PO (13:58)
[2018-04-05 18:32] LABS: POC GLUCOSE 117 mg/dL (70-99)
[2018-04-05] MEDS: DOXAZOSIN MESYLATE 4 MG TABLET. PO (20:04)
[2018-04-05] MEDS: SIMVASTATIN 20 MG TABLET PO (20:06)
[2018-04-05] MEDS: CETIRIZINE HCL 10 MG TABLET. PO (20:06)
[2018-04-05] MEDS: MONTELUKAST SODIUM 10 MG TABLET. PO (20:06)
[2018-04-05 20:35] LABS: POC GLUCOSE 101 mg/dL (70-99)
[2018-04-06] MEDS: HYDROcodone/APAP 7.5/325MG 1 TAB TABLET PO ×2 (03:53→14:17)
[2018-04-06 03:59] LABS: ADD MAN DIFF? NO
[2018-04-06 04:07] LABS: BASO % 1 % (0-3); EOS # 0.1 x10^3/uL (0.0-0.7); EOS % 2 % (0-3); HEMATOCRIT 32.4 % (36.0-47.0); HEMOGLOBIN 10.8 g/dL (12.0-15.5); LYMPH # 1.5 x10^3/uL (1.0-4.8); LYMPH % 21 % (24-48); MEAN CORPUSCULAR HEMOGLOBIN 29 pg (25-35); MEAN CORPUSCULAR HGB CONC 33 g/dL (31-37); MEAN CORPUSCULAR VOLUME 87 fL (79-100); MONO # 0.8 x10^3/uL (0.0-1.1); MONO % 11 % (0-9); NEUT # 4.6 x10^3uL (1.8-7.7); NEUT % 66 % (31-73); PLATELET COUNT 209 x10^3/uL (140-400); RED BLOOD COUNT 3.72 x10^6/uL (3.50-5.40); RED CELL DISTRIBUTION WIDTH 15.8 % (11.5-14.5)
[2018-04-06 04:16] LABS: ANION GAP 5 (6-14); BLOOD UREA NITROGEN 21 mg/dL (7-20); CALCIUM 8.1 mg/dL (8.5-10.1); CARBON DIOXIDE 33 mmol/L (21-32); CHLORIDE 105 mmol/L (98-107); CREATININE 1.6 mg/dL (0.6-1.0); GFR 40.3; GLUCOSE 88 mg/dL (70-99); POTASSIUM 3.9 mmol/L (3.5-5.1); SODIUM 143 mmol/L (136-145)
[2018-04-06 08:12] LABS: POC GLUCOSE 79 mg/dL (70-99)
[2018-04-06] MEDS: IPRATRPIUM/ALBUTEROL 0.5/2.5MG 3 ML NEBU. NEB ×3 (08:37→14:58)
[2018-04-06] MEDS: GABAPENTIN 300 MG CAPSULE. PO ×2 (09:33→14:17)
[2018-04-06] MEDS: METOPROLOL SUCC 24HR ER 100 MG TAB.ER.24H. PO (09:34)
[2018-04-06] MEDS: FUROSEMIDE 40 MG TABLET. PO ×2 (09:34→13:00)
[2018-04-06] MEDS: ISOSORBIDE MONONITRATE ER 30 MG TAB.ER.24H PO (09:34)
[2018-04-06] MEDS: CITALOPRAM 20 MG TABLET. PO (09:34)
[2018-04-06] MEDS: PANTOPRAZOLE 40 MG TABLET.DR. PO (09:34)
[2018-04-06] MEDS: ASPIRIN ENTERIC COATED 81 MG TABLET.DR. PO (09:35)
[2018-04-06] MEDS: POTASSIUM CHLORIDE 10 MEQ TABLET.ER. PO (09:35)
[2018-04-06 11:49] LABS: POC GLUCOSE 82 mg/dL (70-99)
== END 2018-04-06 15:20 | disposition home or self-care (01) | DRG 291 ==
LOC: ER 06:33 → 6 SOUTH 08:45
DX: I13.0 Hypertensive heart and chronic kidney disease with heart failure and stage 1 through stage 4 chronic kidney disease, or unspecified chronic kidney disease (principal); I26.09 Other pulmonary embolism with acute cor pulmonale; J96.02 Acute respiratory failure with hypercapnia; I50.33 Acute on chronic diastolic (congestive) heart failure; N17.9 Acute kidney failure, unspecified; Z68.43 Body mass index [BMI] 50.0-59.9, adult; R07.89 Other chest pain; E11.22 Type 2 diabetes mellitus with diabetic chronic kidney disease; R79.1 Abnormal coagulation profile; J30.9 Allergic rhinitis, unspecified; E11.42 Type 2 diabetes mellitus with diabetic polyneuropathy; E66.01 Morbid (severe) obesity due to excess calories; M19.90 Unspecified osteoarthritis, unspecified site; E78.00 Pure hypercholesterolemia, unspecified; F41.9 Anxiety disorder, unspecified; G47.33 Obstructive sleep apnea (adult) (pediatric); N32.81 Overactive bladder; F17.210 Nicotine dependence, cigarettes, uncomplicated; N18.2 Chronic kidney disease, stage 2 (mild); K21.9 Gastro-esophageal reflux disease without esophagitis; G89.29 Other chronic pain; E78.5 Hyperlipidemia, unspecified; D63.8 Anemia in other chronic diseases classified elsewhere; F32.9 Major depressive disorder, single episode, unspecified; Z82.49 Family history of ischemic heart disease and other diseases of the circulatory system; Z83.3 Family history of diabetes mellitus; Z87.891 Personal history of nicotine dependence; Z90.49 Acquired absence of other specified parts of digestive tract; Z87.442 Personal history of urinary calculi; Z91.19 Patient's noncompliance with other medical treatment and regimen; Z79.899 Other long term (current) drug therapy; Z88.5 Allergy status to narcotic agent
CPT/HCPCS: 36415; 36600; 71046; 76770; 78582; 80048; 80053; 80061; 82553; 82805; 82962; 83735; 83880; 84443; 84484; 85025; 85379; 85610; 93005; 93306; 94640; 94760; 96374; 99285; 99285-25; A9540; A9558; J2405; J7620; J7626

== ENCOUNTER 2018-04-09 01:56 | Inpatient (IN) | payer MEDICARE ==
[2018-04-09] MEDS: diphenhydrAMINE 50 MG/ML VIAL IVP (04:28)
[2018-04-09] MEDS: KETOROLAC 30 MG/ML INJ. IV (04:28)
[2018-04-09] MEDS: PROCHLORPERAZINE 10 MG/2 ML VIAL. IV (04:28)
[2018-04-09] MEDS: LABETALOL 20 MG/4 ML DISP.SYRIN. IVP (04:29)
[2018-04-09 06:05] LABS: ADD MAN DIFF? NO
[2018-04-09 06:10] LABS: BASO % 0 % (0-3); EOS % 1 % (0-3); HEMATOCRIT 39.4 % (36.0-47.0); LYMPH % 13 % (24-48); MEAN CORPUSCULAR HEMOGLOBIN 29 pg (25-35); MEAN CORPUSCULAR HGB CONC 33 g/dL (31-37); MEAN CORPUSCULAR VOLUME 87 fL (79-100); MONO # 0.5 x10^3/uL (0.0-1.1); MONO % 6 % (0-9); NEUT # 6.5 x10^3uL (1.8-7.7); NEUT % 81 % (31-73); PLATELET COUNT 247 x10^3/uL (140-400); RED BLOOD COUNT 4.54 x10^6/uL (3.50-5.40); RED CELL DISTRIBUTION WIDTH 14.9 % (11.5-14.5); WHITE BLOOD COUNT 8.1 x10^3/uL (4.0-11.0)
[2018-04-09] MEDS: hydrALAZINE 20 MG/ML VIAL. IVP (06:13)
[2018-04-09] MEDS: fentaNYL PF VIAL 100 MCG/2 ML VIAL IV (06:13)
[2018-04-09] MEDS: ONDANSETRON PF 4 MG/2 ML VIAL. IV (06:14)
[2018-04-09 06:21] LABS: ANION GAP 8 (6-14); BLOOD UREA NITROGEN 14 mg/dL (7-20); BUN/CREATININE RATIO 12 (6-20); CALCIUM 8.9 mg/dL (8.5-10.1); CARBON DIOXIDE 29 mmol/L (21-32); CHLORIDE 102 mmol/L (98-107); CREATININE 1.2 mg/dL (0.6-1.0); GFR 56.2; GLUCOSE 104 mg/dL (70-99); POTASSIUM 3.6 mmol/L (3.5-5.1); SODIUM 139 mmol/L (136-145)
[2018-04-09 06:27] LABS: ALBUMIN 3.4 g/dL (3.4-5.0); ALBUMIN/GLOBULIN RATIO 0.5 (1.0-1.7); ALK PHOS 70 U/L (46-116); ALT (SGPT) 20 U/L (14-59); AST (SGOT) 17 U/L (15-37); TOTAL BILIRUBIN 1.2 mg/dL (0.2-1.0); TOTAL PROTEIN 9.6 g/dL (6.4-8.2)
[2018-04-09] MEDS ORDERED: hydrALAZINE 20 MG/ML VIAL. IVP (09:00)
[2018-04-09] MEDS ORDERED: tiZANidine 4 MG TABLET. PO (09:30)
[2018-04-09] MEDS: ASPIRIN ENTERIC COATED 81 MG TABLET.DR. PO (10:00)
[2018-04-09] MEDS: POTASSIUM CHLORIDE 10 MEQ TABLET.ER. PO ×2 (10:00→16:01)
[2018-04-09] MEDS: PANTOPRAZOLE 40 MG TABLET.DR. PO (10:00)
[2018-04-09] MEDS: GABAPENTIN 300 MG CAPSULE. PO ×3 (10:00→20:59)
[2018-04-09] MEDS: ISOSORBIDE MONONITRATE ER 30 MG TAB.ER.24H PO (10:00)
[2018-04-09] MEDS ORDERED: ONDANSETRON PF 4 MG/2 ML VIAL. IV (10:15)
[2018-04-09] MEDS ORDERED: ACETAMINOPHEN 325 MG TABLET. PO (10:30)
[2018-04-09] MEDS: FUROSEMIDE 40 MG TABLET. PO (13:00)
[2018-04-09] MEDS: LABETALOL HCL 200 MG TABLET PO ×2 (14:22→20:59)
[2018-04-09] MEDS: HYDROcodone/APAP 7.5/325MG 1 TAB TABLET PO (15:59)
[2018-04-09] MEDS: CETIRIZINE HCL 10 MG TABLET. PO (20:58)
[2018-04-09] MEDS: SIMVASTATIN 20 MG TABLET PO (20:58)
[2018-04-09] MEDS: MONTELUKAST SODIUM 10 MG TABLET. PO (20:59)
[2018-04-09] MEDS: DOXAZOSIN MESYLATE 4 MG TABLET. PO (20:59)
[2018-04-10 06:39] LABS: ADD MAN DIFF? NO
[2018-04-10 06:43] LABS: BASO % 1 % (0-3); EOS # 0.1 x10^3/uL (0.0-0.7); EOS % 2 % (0-3); HEMATOCRIT 35.4 % (36.0-47.0); HEMOGLOBIN 11.9 g/dL (12.0-15.5); LYMPH # 1.3 x10^3/uL (1.0-4.8); LYMPH % 19 % (24-48); MEAN CORPUSCULAR HEMOGLOBIN 29 pg (25-35); MEAN CORPUSCULAR HGB CONC 34 g/dL (31-37); MEAN CORPUSCULAR VOLUME 88 fL (79-100); MONO # 0.6 x10^3/uL (0.0-1.1); MONO % 8 % (0-9); NEUT # 4.9 x10^3uL (1.8-7.7); NEUT % 71 % (31-73); PLATELET COUNT 233 x10^3/uL (140-400); RED BLOOD COUNT 4.05 x10^6/uL (3.50-5.40); RED CELL DISTRIBUTION WIDTH 15.6 % (11.5-14.5); WHITE BLOOD COUNT 6.9 x10^3/uL (4.0-11.0)
[2018-04-10 07:06] LABS: ALBUMIN 3.3 g/dL (3.4-5.0); ALBUMIN/GLOBULIN RATIO 0.6 (1.0-1.7); ALK PHOS 63 U/L (46-116); ALT (SGPT) 23 U/L (14-59); ANION GAP 6 (6-14); AST (SGOT) 18 U/L (15-37); BLOOD UREA NITROGEN 19 mg/dL (7-20); BUN/CREATININE RATIO 14 (6-20); CALCIUM 8.5 mg/dL (8.5-10.1); CARBON DIOXIDE 31 mmol/L (21-32); CHLORIDE 103 mmol/L (98-107); CREATININE 1.4 mg/dL (0.6-1.0); GFR 47.1; GLUCOSE 90 mg/dL (70-99); MAGNESIUM 2.2 mg/dL (1.8-2.4); POTASSIUM 3.4 mmol/L (3.5-5.1); SODIUM 140 mmol/L (136-145); TOTAL PROTEIN 8.9 g/dL (6.4-8.2)
[2018-04-10] MEDS: PANTOPRAZOLE 40 MG TABLET.DR. PO (07:44)
[2018-04-10] MEDS: POTASSIUM CHLORIDE 10 MEQ TABLET.ER. PO (07:45)
[2018-04-10] MEDS: ASPIRIN ENTERIC COATED 81 MG TABLET.DR. PO (07:45)
[2018-04-10] MEDS: FUROSEMIDE 40 MG TABLET. PO ×2 (07:45→13:29)
[2018-04-10] MEDS: HYDROcodone/APAP 7.5/325MG 1 TAB TABLET PO (07:49)
[2018-04-10] MEDS: GABAPENTIN 300 MG CAPSULE. PO ×2 (09:17→13:30)
[2018-04-10] MEDS: LABETALOL HCL 200 MG TABLET PO (09:17)
[2018-04-10] MEDS: POTASSIUM CHLORIDE 20 MEQ TABLET.ER. PO (11:59)
== END 2018-04-10 15:30 | disposition home or self-care (01) | DRG 305 ==
LOC: ER 01:56 → ED HOLD 06:13 → 5 NORTH 09:19
DX: I16.0 Hypertensive urgency (principal); E11.22 Type 2 diabetes mellitus with diabetic chronic kidney disease; I50.32 Chronic diastolic (congestive) heart failure; I13.0 Hypertensive heart and chronic kidney disease with heart failure and stage 1 through stage 4 chronic kidney disease, or unspecified chronic kidney disease; E66.01 Morbid (severe) obesity due to excess calories; E78.5 Hyperlipidemia, unspecified; E87.6 Hypokalemia; G89.29 Other chronic pain; J45.20 Mild intermittent asthma, uncomplicated; J30.2 Other seasonal allergic rhinitis; M54.5 Low back pain; K21.9 Gastro-esophageal reflux disease without esophagitis; M19.90 Unspecified osteoarthritis, unspecified site; N18.9 Chronic kidney disease, unspecified; Z82.49 Family history of ischemic heart disease and other diseases of the circulatory system; Z83.3 Family history of diabetes mellitus; Z87.442 Personal history of urinary calculi; Z90.49 Acquired absence of other specified parts of digestive tract
CPT/HCPCS: 36415; 70450; 80053; 83735; 85025; 96374; 96375; 99285; 99285-25; J0360; J0780; J1200; J1885; J2405; J3010; J3490

== ENCOUNTER → 2018-05-23 | Outpatient (CLI) | payer MEDICARE ==
[2018-05-23] MEDS: IOHEXOL 240 MG/ML 50ML VIAL. PO (16:10)
[2018-05-23] MEDS: IOHEXOL 300 MG/ML 100ML VIAL. IV (17:10)
== END | disposition home or self-care (01) ==
LOC: CT 16:11
DX: N20.0 Calculus of kidney (principal); K42.9 Umbilical hernia without obstruction or gangrene; K76.0 Fatty (change of) liver, not elsewhere classified; R59.0 Localized enlarged lymph nodes
CPT/HCPCS: 74177; Q9966; Q9967

== ENCOUNTER 2018-08-01 10:08 | Inpatient (IN) | payer MEDICARE ==
[~2018-08-01] VITALS: Ht 154.9 cm; Wt 143.6 kg
[~2018-08-01 10:08] MED LIST changes: +ASPI-612 PO; +CEPH-263 PO; +CETI10TA16 PO; +DOXA4TAB2 PO; +FURO40TA4 PO; +GABA600T2 PO; +HYDR-2869 PO; +ISOS30TA4 PO; +LABE200T4 PO; +METO-247 PO; +MONT10TA9 PO; +OMEP40CA5 PO; +POTA10TA12 PO; +SIMV20TA3 PO; +TIZA4TAB PO
[2018-08-01] MEDS ORDERED: IV NORMAL SALINE 1000ML BAG 1,000 ML IV ONE (10:30)
[2018-08-01] MEDS ORDERED: ONDANSETRON PF 4 MG/2 ML VIAL. IV ONE ×2 (10:30→12:45)
[2018-08-01] MEDS ORDERED: fentaNYL PF VIAL 100 MCG/2 ML VIAL IV ONE (10:30)
[2018-08-01 11:06] LABS: BASO # 0.1 x10^3/uL (0.0-0.2); BASO % 0 % (0-3); EOS # 0.1 x10^3/uL (0.0-0.7); EOS % 1 % (0-3); HEMATOCRIT 36.6 % (36.0-47.0); HEMOGLOBIN 12.3 g/dL (12.0-15.5); LYMPH % 9 % (24-48); MEAN CORPUSCULAR HEMOGLOBIN 29 pg (25-35); MEAN CORPUSCULAR HGB CONC 34 g/dL (31-37); MEAN CORPUSCULAR VOLUME 87 fL (79-100); MONO # 0.6 x10^3/uL (0.0-1.1); MONO % 5 % (0-9); NEUT # 9.9 x10^3uL (1.8-7.7); NEUT % 85 % (31-73); PLATELET COUNT 226 x10^3/uL (140-400); RED BLOOD COUNT 4.22 x10^6/uL (3.50-5.40); RED CELL DISTRIBUTION WIDTH 15.8 % (11.5-14.5); WHITE BLOOD COUNT 11.6 x10^3/uL (4.0-11.0)
[2018-08-01 11:10] LABS: CREATININE 1.3 mg/dL (0.6-1.0); GFR 51.3; POTASSIUM 4.5 mmol/L (3.5-5.1)
[2018-08-01 11:16] LABS: ALBUMIN 3.8 g/dL (3.4-5.0); ALBUMIN/GLOBULIN RATIO 0.6 (1.0-1.7); TOTAL BILIRUBIN 0.9 mg/dL (0.2-1.0); TOTAL PROTEIN 9.8 g/dL (6.4-8.2)
--- NOTE | 2018-08-01 11:39 | RAD ---
CT Abdomen and Pelvis without contrast History: Flank pain, history of renal calculi Technique: Noncontrast CT imaging was performed of the abdomen and pelvis. Multiplanar images are reviewed. Exposure: One or more of the following individualized dose reduction techniques were utilized for this examination: 1. Automated exposure control 2. Adjustment of the mA and/or kV according to patient size 3. Use of iterative reconstruction technique. Comparison: May 23, 2018 and May 26, 2017 Findings: There is now mild right hydronephrosis. There is increased moderate strandy change of the right perinephric fat. There is now 0.8 cm calculus near the right ureteropelvic junction, also some migration of previously seen calculi to the right renal pelvis. There are about 7 right renal calculi with the largest 1 cm in size. There is no left hydronephrosis or renal calculus. No distal right ureteral calculus is identified, some strandy change about the right ureter. There is no significant abnormality limited visualized lung bases. Accurate evaluation of abdominal visceral organs is limited without intravenous contrast. There is no obvious focal abnormality of the spleen, liver, or pancreas. There is diffuse hepatic steatosis. There is again left adrenal nodule about 2.6 cm, density measurements 60 Hounsfield units, similar in size compared with the April 2017 exam. Accurate evaluation of bowel is limited without oral contrast. Normal appendix is visualized. There is again small ventral fat-containing hernia best seen axial image 147 series 2 which does not contain internal bowel, some strandy change at the margin. There is also ventral umbilical hernia containing fat as well as calcification as seen previously, no significant internal bowel. There is mild distention of the urinary bladder. There may be fluid in the cervical canal. There is again bilateral inguinal lymphadenopathy, largest individual node on the right about 1.4 cm short axis dimension and on the left about 1.5 cm short axis dimension. There are also somewhat enlarged nodes along the iliac chains bilaterally, largest on the right about 1.3 cm short axis dimension and on the left about 1.2 cm short axis dimension overall similar. There is multilevel lumbar facet degenerative change. There is vacuum disc disease L5-S1. Impression: 1. There is now mild right hydronephrosis, increased strandy change of the right perinephric fat which may be due to forniceal rupture versus pyelonephritis. There has been migration of calculi to the right renal pelvis and now 0.8 cm calculus near the right ureteropelvic junction. There is also mild strandy change about the right ureter which is not significantly dilated. 2. There is diffuse hepatic steatosis. 3. There is again nonspecific left adrenal nodule although similar to April 2017 exam. 4. There are again 2 ventral fat-containing hernias, largest near the umbilicus and one just superiorly. 5. There is again nonspecific bilateral inguinal lymphadenopathy, also along the iliac chains. Electronically signed by: Aleksey Lucas MD (08/01/2018 11:36 AM) [facility]
--- NOTE | 2018-08-01 11:50 | PHYS DOC ---
Past Medical History Past Medical History: Arthritis, Diabetes-Type II, High Cholesterol, Hypertension Additional Past Medical Histor: MORBID OBESITY, OSTEOARTHRITIS, NEUROPATHY, SEASONAL ALLERGIES Past Surgical History: Cholecystectomy Additional Past Surgical Histo: D&C, lithotripsy Alcohol Use: None Drug Use: None Adult General Chief Complaint Chief Complaint: FLANK PAIN HPI HPI Patient is a 57 year old female who presents with flank pain, nausea and vomiting x 1 day. The patient called EMS this morning due to her intense pain and vomiting. She states that this feels similar to when she had kidney stones prior. She has vomited 4 times this morning. She denies fever. Review of Systems Review of Systems Constitutional: Denies fever or chills [] Eyes: Denies change in visual acuity, redness, or eye pain [] HENT: Denies nasal congestion or sore throat [] Respiratory: Denies cough or shortness of breath [] Cardiovascular: No additional information not addressed in HPI [] GI: Denies abdominal pain, nausea, vomiting, bloody stools or diarrhea [] : See HPI Musculoskeletal: Denies back pain or joint pain [] Integument: Denies rash or skin lesions [] Neurologic: Denies headache, focal weakness or sensory changes [] Endocrine: Denies polyuria or polydipsia [] All other systems were reviewed and found to be within normal limits, except as documented in this note. Current Medications Current Medications Current Medications Medications (Trade) Dose Ordered Sig/[facility] Start Time Stop Time Status Last Admin Dose Admin Fentanyl Citrate (Fentanyl 2ml Vial) 50 mcg 1X ONCE 08/01/18 10:30 08/01/18 10:31 DC 08/01/18 11:03 50 MCG Ondansetron HCl (Zofran) 8 mg 1X ONCE 08/01/18 10:30 08/01/18 10:31 DC 08/01/18 10:58 8 MG Sodium Chloride 1,000 ml @ 1,000 mls/hr 1X ONCE 08/01/18 10:30 08/01/18 11:29 DC 08/01/18 10:56 1,000 MLS/HR Allergies Allergies Allergies Coded Allergies Type Severity Reaction Last Updated Verified morphine Allergy Intermediate TOLERATES HYDROCODONE 04/09/18 Yes Physical Exam Physical Exam Constitutional: Well developed, well nourished, no acute distress, non-toxic appearance. [] Cardiovascular:Heart rate regular rhythm, no murmur [] Lungs & Thorax: Bilateral breath sounds clear to auscultation [] Abdomen: Bowel sounds normal, soft, no tenderness, no masses, no pulsatile masses. [] Skin: Warm, dry, no erythema, no rash. [] Back: No tenderness, right CVA tenderness. [] Extremities: No tenderness, no cyanosis, no clubbing, ROM intact, no edema. [] Neurologic: Alert and oriented X 3, normal motor function, normal sensory function, no focal deficits noted. [] Psychologic: Affect normal, judgement normal, mood normal. [] Current Patient Data Vital Signs Vital Signs Date Time Temp Pulse Resp B/P (MAP) Pulse Ox O2 Delivery O2 Flow Rate FiO2 08/01/18 12:16 210/99 (136) 08/01/18 11:16 63 20 99 Nasal Cannula 2.0 08/01/18 10:08 98.0 98.0 Lab Values Laboratory Tests Test 08/01/18 10:45 08/01/18 11:30 White Blood Count 11.6 x10^3/uL (4.0-11.0) H Red Blood Count 4.22 x10^6/uL (3.50-5.40) Hemoglobin 12.3 g/dL (12.0-15.5) Hematocrit 36.6 % (36.0-47.0) Mean Corpuscular Volume 87 fL (79-100) Mean Corpuscular Hemoglobin 29 pg (25-35) Mean Corpuscular Hemoglobin Concent 34 g/dL (31-37) Red Cell Distribution Width 15.8 % (11.5-14.5) H Platelet Count 226 x10^3/uL (140-400) Neutrophils (%) (Auto) 85 % (31-73) H Lymphocytes (%) (Auto) 9 % (24-48) L Monocytes (%) (Auto) 5 % (0-9) Eosinophils (%) (Auto) 1 % (0-3) Basophils (%) (Auto) 0 % (0-3) Neutrophils # (Auto) 9.9 x10^3uL (1.8-7.7) H Lymphocytes # (Auto) 1.0 x10^3/uL (1.0-4.8) Monocytes # (Auto) 0.6 x10^3/uL (0.0-1.1) Eosinophils # (Auto) 0.1 x10^3/uL (0.0-0.7) Basophils # (Auto) 0.1 x10^3/uL (0.0-0.2) Segmented Neutrophils % 83 % (35-66) H Band Neutrophils % 3 % (0-9) Lymphocytes % 10 % (24-48) L Monocytes % 4 % (0-10) Platelet Estimate Adequate (ADEQUATE) Anisocytosis Present Sodium Level 137 mmol/L (136-145) Potassium Level 4.5 mmol/L (3.5-5.1) Chloride Level 104 mmol/L (98-107) Carbon Dioxide Level 26 mmol/L (21-32) Anion Gap 7 (6-14) Blood Urea Nitrogen 15 mg/dL (7-20) Creatinine 1.3 mg/dL (0.6-1.0) H Estimated GFR (Cockcroft-Gault) 51.3 BUN/Creatinine Ratio 12 (6-20) Glucose Level 116 mg/dL (70-99) H Calcium Level 9.0 mg/dL (8.5-10.1) Total Bilirubin 0.9 mg/dL (0.2-1.0) Aspartate Amino Transferase (AST) 29 U/L (15-37) Alanine Aminotransferase (ALT) 29 U/L (14-59) Alkaline Phosphatase 77 U/L (46-116) Total Protein 9.8 g/dL (6.4-8.2) H Albumin 3.8 g/dL (3.4-5.0) Albumin/Globulin Ratio 0.6 (1.0-1.7) L Urine Collection Type Void Urine Color Yellow Urine Clarity Clear Urine pH 7.5 Urine Specific [place] 1.010 Urine Protein Negative mg/dL (NEG-TRACE) Urine Glucose (UA) Negative mg/dL (NEG) Urine Ketones (Stick) Negative mg/dL (NEG) Urine Blood Moderate (NEG) Urine Nitrite Negative (NEG) Urine Bilirubin Negative (NEG) Urine Urobilinogen Dipstick 0.2 mg/dL (0.2 mg/dL) Urine Leukocyte Esterase Negative (NEG) Urine RBC 11-20 /HPF (0-2) Urine WBC 1-4 /HPF (0-4) Urine Squamous Epithelial Cells Few /LPF Urine Bacteria Many /HPF (0-FEW) Laboratory Tests 08/01/18 10:45 Laboratory Tests 08/01/18 10:45 EKG EKG [] Radiology/Procedures Radiology/Procedures [] PATIENT: MARIJA PEÑA ACCOUNT: [id number] : 1960 LOCATION: ER AGE: 57 SEX: F EXAM STATUS: REG ER ORD. PHYSICIAN: CHECO JAVIER APRN REASON: flank pain, hx of renal calculi PROCEDURE: CT ABDOMEN PELVIS WO CONTRAST CT Abdomen and Pelvis without contrast History: Flank pain, history of renal calculi Technique: Noncontrast CT imaging was performed of the abdomen and pelvis. Multiplanar images are reviewed. Exposure: One or more of the following individualized dose reduction techniques were utilized for this examination: 1. Automated exposure control 2. Adjustment of the mA and/or kV according to patient size 3. Use of iterative reconstruction technique. Comparison: May 23, 2018 and May 26, 2017 Findings: There is now mild right hydronephrosis. There is increased moderate strandy change of the right perinephric fat. There is now 0.8 cm calculus near the right ureteropelvic junction, also some migration of previously seen calculi to the right renal pelvis. There are about 7 right renal calculi with the largest 1 cm in size. There is no left hydronephrosis or renal calculus. No distal right ureteral calculus is identified, some strandy change about the right ureter. There is no significant abnormality limited visualized lung bases. Accurate evaluation of abdominal visceral organs is limited without intravenous contrast. There is no obvious focal abnormality of the spleen, liver, or pancreas. There is diffuse hepatic steatosis. There is again left adrenal nodule about 2.6 cm, density measurements 60 Hounsfield units, similar in size compared with the April 2017 exam. Accurate evaluation of bowel is limited without oral contrast. Normal appendix is visualized. There is again small ventral fat-containing hernia best seen axial image 147 series 2 which does not contain internal bowel, some strandy change at the margin. There is also ventral umbilical hernia containing fat as well as calcification as seen previously, no significant internal bowel. There is mild distention of the urinary bladder. There may be fluid in the cervical canal. There is again bilateral inguinal lymphadenopathy, largest individual node on the right about 1.4 cm short axis dimension and on the left about 1.5 cm short axis dimension. There are also somewhat enlarged nodes along the iliac chains bilaterally, largest on the right about 1.3 cm short axis dimension and on the left about 1.2 cm short axis dimension overall similar. There is multilevel lumbar facet degenerative change. There is vacuum disc disease L5-S1. Impression: 1. There is now mild right hydronephrosis, increased strandy change of the right perinephric fat which may be due to forniceal rupture versus pyelonephritis. There has been migration of calculi to the right renal pelvis and now 0.8 cm calculus near the right ureteropelvic junction. There is also mild strandy change about the right ureter which is not significantly dilated. 2. There is diffuse hepatic steatosis. 3. There is again nonspecific left adrenal nodule although similar to April 2017 exam. 4. There are again 2 ventral fat-containing hernias, largest near the umbilicus and one just superiorly. 5. There is again nonspecific bilateral inguinal lymphadenopathy, also along the iliac chains. Electronically signed by: Radha Franks MD (08/01/2018 11:36 AM) [id number] DICTATED and SIGNED BY: RADHA FRANKS MD DATE: 08/01/18 1124 Course & Med Decision Making Course & Med Decision Making Pertinent Labs and Imaging studies reviewed. (See chart for details) []The patient is being admitted to Dr. Yi. Urology has been consulted. Dragon Disclaimer Dragon Disclaimer This electronic medical record was generated, in whole or in part, using a voice recognition dictation system. Departure Departure Impression: Primary Impression: Renal calculi Disposition: ADMITTED INPATIENT Admitting Physician: Kishan Yi Condition: GOOD Referrals: KISHAN YI MD (PCP) CHECO JAVIER APRN Aug 01, 2018 11:50
[2018-08-01 12:09] LABS: BILIRUBIN,URINE NEGATIVE (NEG); CLARITY,URINE CLEAR; COLOR,URINE YELLOW; NITRITE,URINE NEGATIVE (NEG); PH,URINE 7.5; PROTEIN,URINE NEGATIVE (NEG-TRACE); UROBILINOGEN,URINE 0.2 mg/dL (0.2 mg/dL)
[2018-08-01] MEDS ORDERED: KETOROLAC 30 MG/ML VIAL. IV ONE (12:45)
[2018-08-01 12:55] LABS: BACTERIA,URINE MANY /HPF (0-FEW); SQUAMOUS EPITHELIAL CELL,UR FEW /LPF
[2018-08-01] MEDS ORDERED: IV NORMAL SALINE 1000ML BAG 1,000 ML IV SCH (13:04)
[2018-08-01] MEDS ORDERED: METOPROLOL TARTRATE 5 MG/5 ML VIAL. IVP ONE (13:15)
[2018-08-01] MEDS ORDERED: fentaNYL PF VIAL 100 MCG/2 ML VIAL IV PRN (13:15)
[2018-08-01] MEDS ORDERED: ACETAMINOPHEN 325 MG TABLET. PO PRN ×2 (13:15→18:30)
[2018-08-01] MEDS ORDERED: ONDANSETRON PF 4 MG/2 ML VIAL. IV PRN (13:15)
[2018-08-01 13:20] LABS: % BANDS 3 % (0-9); % LYMPHS 10 % (24-48); % MONOS 4 % (0-10); % SEGS 83 % (35-66); ANISOCYTOSIS PRESENT; PLT ESTIMATE ADEQUATE (ADEQUATE)
--- NOTE | 2018-08-01 14:48 | PDOC2 ---
ANTONETTE MORTON [employer]ER 08/01/18 1448: UROLOGY CONSULT Date of Consult Date of Consult DATE: 08/01/18 TIME: 14:39 Reason for Consult Reason for Consult: 0.8 cm calculus near the right UPJ Identification/Chief Complaint Chief Complaint 0.8 cm calculus near the right UPJ Source Source: Caregiver, Chart review, Patient History of Present Illness Reason for Visit: This pleasant 57 year old female presents with a history of HTN and morbid obesity and kidney stones. This is her second kidney stone that she has had to have treatment for. Her last one occurred about a year ago around the may. She was treated at that time by Dr. Lugo and then Dr. Jerome of completed the treatment. She had an appointment for follow up September [address] Jerome, but would rather transfer her Urology care here if possible. This most recent episode occurred suddenly. She just woke up this morning with nausea, right sided flank welch and lower abd pain. She denies dysuria or hematuria or fevers of any kind. Currently her pain is still in the right flank and lower abd area but much better after medication with 3-4/10 pain. She knows her BP is high, but attributes that to running out of her medication a couple of days ago. Despite this she is not having any headaches currently. Past Medical History Cardiovascular: HTN, Hyperlipidemia Pulmonary: Asthma CENTRAL NERVOUS SYSTEM: Periperal neuropathy GI: GERD Heme/Onc: Anemia NOS Musculoskeletal: Osteoarthritis Renal/: Other (Kidney stone a year ago, pt of Dr. Jerome's at ) Endocrine: Diabetes Grav: 3 Para: 2 Past Surgical History Past Surgical History: Cholecystectomy, Other Family History Family History: Diabetes, Hypertension Social History No ALCOHOL: none Drugs: None Current Problem List Problems: (1) Renal calculi Current Medications Current Medications Current Medications Acetaminophen (Tylenol) 650 mg PRN Q4HRS PRN PO FEVER; Start 08/01/18 at 13:15; Stop 08/02/18 at 13:14 Fentanyl Citrate (Fentanyl 2ml Vial) 50 mcg 1X ONCE IV Last administered on 08/01/18at 11:03; Start 08/01/18 at 10:30; Stop 08/01/18 at 10:31; Status DC Fentanyl Citrate (Fentanyl 2ml Vial) 50 mcg PRN Q2HR PRN IV PAIN; Start at 13:15; Stop 08/02/18 at 13:14 Ketorolac Tromethamine (Toradol 30mg Vial) 30 mg 1X ONCE IV Last administered on 08/01/18at 12:53; Start 08/01/18 at 12:45; Stop 08/01/18 at 12:46; Status DC Metoprolol Tartrate (Lopressor Vial) 5 mg 1X ONCE IVP Last administered on 08/01at 13:23; Start 08/01/18 at 13:15; Stop 08/01/18 at 13:16; Status DC Ondansetron HCl (Zofran) 4 mg 1X ONCE IV Last administered on 08/01/18at 12:52; Start 08/01/18 at 12:45; Stop 08/01/18 at 12:46; Status DC Ondansetron HCl (Zofran) 4 mg PRN Q8HRS PRN IV NAUSEA/VOMITING; Start 08/01/18 at 13:15; Stop 08/02/18 at 13:14 Ondansetron HCl (Zofran) 8 mg 1X ONCE IV Last administered on 08/01/18at 10:58; Start 08/01/18 at 10:30; Stop 08/01/18 at 10:31; Status DC Sodium Chloride 1,000 ml @ 125 mls/hr Q8H IV ; Start 08/01/18 at 13:04; Stop 08/02/18 at 13:03 Sodium Chloride 1,000 ml @ 1,000 mls/hr 1X ONCE IV Last administered on at 10:56; Start 08/01/18 at 10:30; Stop 08/01/18 at 11:29; Status DC Allergies Allergies: Coded Allergies: morphine (Verified Allergy, Intermediate, TOLERATES HYDROCODONE, 04/09/18) ROS Review Of Systems: CONSTITUTIONAL: No fever or chills EYES: No recent changes SKIN: No rash or itching CARDIOVASCULAR: + high BP RESPIRATORY: No SOB or cough GASTROINTESTINAL: + nausea, vomiting + right abdominal pain, + right flank pain NEUROLOGICAL: No headaches or weakness ENDOCRINE: No cold or heat intolerance GENITOURINARY: No urgency or frequency of urination MUSCULOSKELETAL: + right flank pain LYMPHATICS: No enlarged lymph nodes PSYCHIATRIC: No anxiety or depression Physical Exam Physical Exam: General: Pleasant, no acute distress, well groomed Eyes: conjunctiva anicteric, eyes full range of motion ENT: moist oral mucosa, normal dentition Neck: Trachea midline, no masses Respiratory: unlabored breathing, not using accessory muscles Abdomen: morbid obesity, soft tender RLQ, nondistended Back: + Right flank/CVA pain, non tender left flank/CVA Psych: normal mood, affect. Alert and oriented x 3. Vitals VITALS Vital Signs Date Time Temp Pulse Resp B/P (MAP) Pulse Ox O2 Delivery O2 Flow Rate FiO2 08/01/18 13:23 72 197/90 08/01/18 13:16 23 98 Nasal Cannula 2.0 08/01/18 10:08 98.0 98.0 Labs Labs Laboratory Tests Test 08/01/18 10:45 08/01/18 11:30 White Blood Count 11.6 x10^3/uL (4.0-11.0) Red Blood Count 4.22 x10^6/uL (3.50-5.40) Hemoglobin 12.3 g/dL (12.0-15.5) Hematocrit 36.6 % (36.0-47.0) Mean Corpuscular Volume 87 fL (79-100) Mean Corpuscular Hemoglobin 29 pg (25-35) Mean Corpuscular Hemoglobin Concent 34 g/dL (31-37) Red Cell Distribution Width 15.8 % (11.5-14.5) Platelet Count 226 x10^3/uL (140-400) Neutrophils (%) (Auto) 85 % (31-73) Lymphocytes (%) (Auto) 9 % (24-48) Monocytes (%) (Auto) 5 % (0-9) Eosinophils (%) (Auto) 1 % (0-3) Basophils (%) (Auto) 0 % (0-3) Neutrophils # (Auto) 9.9 x10^3uL (1.8-7.7) Lymphocytes # (Auto) 1.0 x10^3/uL (1.0-4.8) Monocytes # (Auto) 0.6 x10^3/uL (0.0-1.1) Eosinophils # (Auto) 0.1 x10^3/uL (0.0-0.7) Basophils # (Auto) 0.1 x10^3/uL (0.0-0.2) Segmented Neutrophils % 83 % (35-66) Band Neutrophils % 3 % (0-9) Lymphocytes % 10 % (24-48) Monocytes % 4 % (0-10) Platelet Estimate Adequate (ADEQUATE) Anisocytosis Present Sodium Level 137 mmol/L (136-145) Potassium Level 4.5 mmol/L (3.5-5.1) Chloride Level 104 mmol/L (98-107) Carbon Dioxide Level 26 mmol/L (21-32) Anion Gap 7 (6-14) Blood Urea Nitrogen 15 mg/dL (7-20) Creatinine 1.3 mg/dL (0.6-1.0) Estimated GFR (Cockcroft-Gault) 51.3 BUN/Creatinine Ratio 12 (6-20) Glucose Level 116 mg/dL (70-99) Calcium Level 9.0 mg/dL (8.5-10.1) Total Bilirubin 0.9 mg/dL (0.2-1.0) Aspartate Amino Transf (AST/SGOT) 29 U/L (15-37) Alanine Aminotransferase (ALT/SGPT) 29 U/L (14-59) Alkaline Phosphatase 77 U/L (46-116) Total Protein 9.8 g/dL (6.4-8.2) Albumin 3.8 g/dL (3.4-5.0) Albumin/Globulin Ratio 0.6 (1.0-1.7) Urine Collection Type Void Urine Color Yellow Urine Clarity Clear Urine pH 7.5 Urine Specific [place] 1.010 Urine Protein Negative mg/dL (NEG-TRACE) Urine Glucose (UA) Negative mg/dL (NEG) Urine Ketones (Stick) Negative mg/dL (NEG) Urine Blood Moderate (NEG) Urine Nitrite Negative (NEG) Urine Bilirubin Negative (NEG) Urine Urobilinogen Dipstick 0.2 mg/dL (0.2 mg/dL) Urine Leukocyte Esterase Negative (NEG) Urine RBC 11-20 /HPF (0-2) Urine WBC 1-4 /HPF (0-4) Urine Squamous Epithelial Cells Few /LPF Urine Bacteria Many /HPF (0-FEW) Laboratory Tests Test 08/01/18 10:45 08/01/18 11:30 White Blood Count 11.6 x10^3/uL (4.0-11.0) Red Blood Count 4.22 x10^6/uL (3.50-5.40) Hemoglobin 12.3 g/dL (12.0-15.5) Hematocrit 36.6 % (36.0-47.0) Mean Corpuscular Volume 87 fL (79-100) Mean Corpuscular Hemoglobin 29 pg (25-35) Mean Corpuscular Hemoglobin Concent 34 g/dL (31-37) Red Cell Distribution Width 15.8 % (11.5-14.5) Platelet Count 226 x10^3/uL (140-400) Neutrophils (%) (Auto) 85 % (31-73) Lymphocytes (%) (Auto) 9 % (24-48) Monocytes (%) (Auto) 5 % (0-9) Eosinophils (%) (Auto) 1 % (0-3) Basophils (%) (Auto) 0 % (0-3) Neutrophils # (Auto) 9.9 x10^3uL (1.8-7.7) Lymphocytes # (Auto) 1.0 x10^3/uL (1.0-4.8) Monocytes # (Auto) 0.6 x10^3/uL (0.0-1.1) Eosinophils # (Auto) 0.1 x10^3/uL (0.0-0.7) Basophils # (Auto) 0.1 x10^3/uL (0.0-0.2) Segmented Neutrophils % 83 % (35-66) Band Neutrophils % 3 % (0-9) Lymphocytes % 10 % (24-48) Monocytes % 4 % (0-10) Platelet Estimate Adequate (ADEQUATE) Anisocytosis Present Sodium Level 137 mmol/L (136-145) Potassium Level 4.5 mmol/L (3.5-5.1) Chloride Level 104 mmol/L (98-107) Carbon Dioxide Level 26 mmol/L (21-32) Anion Gap 7 (6-14) Blood Urea Nitrogen 15 mg/dL (7-20) Creatinine 1.3 mg/dL (0.6-1.0) Estimated GFR (Cockcroft-Gault) 51.3 BUN/Creatinine Ratio 12 (6-20) Glucose Level 116 mg/dL (70-99) Calcium Level 9.0 mg/dL (8.5-10.1) Total Bilirubin 0.9 mg/dL (0.2-1.0) Aspartate Amino Transf (AST/SGOT) 29 U/L (15-37) Alanine Aminotransferase (ALT/SGPT) 29 U/L (14-59) Alkaline Phosphatase 77 U/L (46-116) Total Protein 9.8 g/dL (6.4-8.2) Albumin 3.8 g/dL (3.4-5.0) Albumin/Globulin Ratio 0.6 (1.0-1.7) Urine Collection Type Void Urine Color Yellow Urine Clarity Clear Urine pH 7.5 Urine Specific [place] 1.010 Urine Protein Negative mg/dL (NEG-TRACE) Urine Glucose (UA) Negative mg/dL (NEG) Urine Ketones (Stick) Negative mg/dL (NEG) Urine Blood Moderate (NEG) Urine Nitrite Negative (NEG) Urine Bilirubin Negative (NEG) Urine Urobilinogen Dipstick 0.2 mg/dL (0.2 mg/dL) Urine Leukocyte Esterase Negative (NEG) Urine RBC 11-20 /HPF (0-2) Urine WBC 1-4 /HPF (0-4) Urine Squamous Epithelial Cells Few /LPF Urine Bacteria Many /HPF (0-FEW) Images Images 1. There is now mild right hydronephrosis, increased strandy change of the right perinephric fat which may be due to forniceal rupture versus pyelonephritis. There has been migration of calculi to the right renal pelvis and now 0.8 cm calculus near the right ureteropelvic junction. There is also mild strandy change about the right ureter which is not significantly dilated. 2. There is diffuse hepatic steatosis. 3. There is again nonspecific left adrenal nodule although similar to April 2017 exam. 4. There are again 2 ventral fat-containing hernias, largest near the umbilicus and one just superiorly. 5. There is again nonspecific bilateral inguinal lymphadenopathy, also along the iliac chains. Assessment/Plan Assessment/Plan 0.8 cm calculus near the right ureteral pelvic junction-Pain is currently tolerable, pt afebrile, WBC 11.3, slight cupola man up at 1.3 Currently patient's BP is elevated. Recommend getting this controlled over night and then possibly treat patient with surgery in the am Start flomax. Diet as tolerated today, NPO at midnight Discussed POC with RN and patient. All questions answered. Pt has Dr. Robertson's card. Will check on patient in the am. TERE ROBERTSON MD 08/02/18 1517: UROLOGY CONSULT Assessment/Plan Assessment/Plan bacteruria. renal stones ureter stone will stent for pain control ,passive ureter dilation and infection control. Plan on URS in 2 weeks after. NPO, hal, consent. ANTONETTE MORTON APRN Aug 01, 2018 14:48 TERE ROBERTSON MD Aug 02, 2018 15:17
[2018-08-01 15:00] VITALS: BP 161/87
[2018-08-01] MEDS: TAMSULOSIN 0.4 MG CAP.ER.24H. PO SCH (16:32)
[2018-08-01] MEDS: IV NORMAL SALINE 1000ML BAG 1,000 ML IV SCH (18:30)
--- NOTE | 2018-08-01 18:40 | PDOC ---
Provider Note Provider Note Patient seen. History and Physical dictated. See dictation# [id number] KISHAN OLIVARES MD Aug 01, 2018 18:40
[2018-08-01 19:00] VITALS: BP 162/86
[2018-08-01] MEDS ORDERED: DOXA8TAB59 PO (19:29)
--- NOTE | 2018-08-01 19:57 | HP ---
ADMIT DATE: 08/01/2018 HISTORY OF PRESENT ILLNESS: This 57-year-old -[place] female started having severe right-sided abdominal pain this morning along with nausea and vomiting. She had severe pain and was unable to tolerate any oral medications or food. She was brought to the Emergency Room and she was noted to have acute renal colic with an 8 mm stone near the right ureteropelvic junction. The patient was admitted for further evaluation and management. On admission, her blood pressure was extremely high at 210/99 and then 225/108, now it is 161/87. The patient said that she did not take any of her blood pressure medications and she ran out of doxazosin few days ago. SYSTEMS REVIEW: The patient was admitted for further evaluation and management and she denies any cold, cough, congestion, chest pains, palpitations, dyspnea or dizziness. Her abdominal pain, nausea and vomiting are better. Her pain is under better control at this time. She denies any hematuria. She denies any leg pain or leg cramps. She denies any fever, chills or dysuria. Other systems reviewed and are negative. PAST MEDICAL HISTORY: The patient is known to have history of nephrolithiasis, hypertension, morbid obesity, diabetes mellitus that is diet-controlled, sleep apnea, history of depression, breast mass, osteoarthritis primary generalized. The patient had a history of galactorrhea. She has a history of anemia, asthma, gastroesophageal reflux disease. PAST SURGICAL HISTORY: The patient had ovarian cyst removed by Dr. Murphy. She also has a history of cholecystectomy and bilateral breast biopsy for breast lump. ALLERGIES: THE PATIENT IS ALLERGIC TO MORPHINE THAT CAUSES GASTRIC DISTRESS. FAMILY HISTORY: Father had throat cancer. Mother had hypertension and arthritis. Paternal grandmother had cancer of the colon and heart disease. SOCIAL HISTORY: The patient is disabled. No history of smoking, alcoholism or drug abuse. PHYSICAL EXAMINATION: VITAL SIGNS: On admission, blood pressure was 210/99, now the blood pressure is 161/87 mmHg, temperature 97.7, pulse 65 per minute, respirations 16 per minute. GENERAL: The patient is alert, oriented, obese, and not in acute distress. EYES: Pupils reacting to light. Conjunctivae pale. Sclerae muddy. HEENT: Unremarkable. NECK: Supple. JVP normal. No thyromegaly. Trachea midline. LUNGS: Clear. CARDIOVASCULAR: S1, S2 regular. ABDOMEN: Soft, nontender, no guarding, no rigidity. Bowel sounds present. No right CVA tenderness, no suprapubic tenderness. EXTREMITIES: No edema, no cyanosis, no calf tenderness. CENTRAL NERVOUS SYSTEM: Alert and oriented. No acute changes noted. LABORATORY FINDINGS: Sodium 137, potassium 4.5, BUN 15, creatinine 1.3, glucose 116 and 109, total protein 9.8, albumin 3.8, AST 29, ALT 29. WBC count 11.6, hemoglobin 12.3, polys 85, neutrophils 9.9. Urinalysis, moderate blood, nitrite negative, 11-20 rbc's, 1-4 wbc's, many bacteria. IMPRESSION: 1. Acute renal colic. 2. Right nephrolithiasis. 3. Hypertensive crisis. 4. Diabetes mellitus, diet controlled. 5. Asthma, controlled, mild intermittent. 6. Morbid obesity. 7. History of galactorrhea. 8. Primary generalized osteoarthritis. 9. Gastroesophageal reflux disease. PLAN: The patient has leukocytosis and some bacteria in the urine, so I will go ahead and start her on IV Rocephin to cover for UTI. Her leukocytosis may be reactive due to kidney stone. Consultation has been obtained with Dr. Lion for Urology evaluation and management. The patient has been scheduled for surgery tomorrow. The patient's blood pressure is very high as she could not take any of her medications this morning and she ran out of doxazosin few days ago. I will restart the medications. I will also keep IV Lopressor p.r.n., so that when she is n.p.o. she can have some blood pressure medication. We will restart some of her medications this evening and some for tomorrow. For details, please refer to the orders. Continue to strain urine. Monitor labs and blood sugar. She is improving at this time. KISHAN OLIVARES MD DR: ISAURA/thais JOB#: [id number] / [id number]
[2018-08-01] MEDS: GABAPENTIN 300 MG CAPSULE. PO SCH (21:14)
[2018-08-01] MEDS: cefTRIAXone IV Push 1 GM VIAL. IVP SCH (21:14)
[2018-08-01] MEDS: CETIRIZINE HCL 10 MG TABLET. PO SCH (21:14)
[2018-08-01] MEDS: HYDROcodone/APAP 7.5/325MG 1 TAB TABLET PO PRN (21:14)
[2018-08-01] MEDS: MONTELUKAST SODIUM 10 MG TABLET. PO SCH (21:14)
[2018-08-01] MEDS: SIMVASTATIN 20 MG TABLET PO SCH (21:15)
[2018-08-01] MEDS: LABETALOL HCL 200 MG TABLET PO SCH (21:15)
[2018-08-01 23:00] VITALS: BP 136/75
[2018-08-02] VITALS (10 sets, daily range): BP systolic 117–221; BP diastolic 64–96
[2018-08-02] MEDS: IV NORMAL SALINE 1000ML BAG 1,000 ML IV SCH (02:30)
[2018-08-02] MEDS: PANTOPRAZOLE 40 MG TABLET.DR. PO SCH (03:55)
[2018-08-02 06:59] LABS: BASO % 1 % (0-3); EOS # 0.1 x10^3/uL (0.0-0.7); EOS % 1 % (0-3); HEMATOCRIT 32.8 % (36.0-47.0); HEMOGLOBIN 10.9 g/dL (12.0-15.5); LYMPH # 1.3 x10^3/uL (1.0-4.8); LYMPH % 18 % (24-48); MEAN CORPUSCULAR HEMOGLOBIN 29 pg (25-35); MEAN CORPUSCULAR HGB CONC 33 g/dL (31-37); MEAN CORPUSCULAR VOLUME 88 fL (79-100); MONO # 0.8 x10^3/uL (0.0-1.1); MONO % 10 % (0-9); NEUT # 5.2 x10^3uL (1.8-7.7); NEUT % 70 % (31-73); PLATELET COUNT 199 x10^3/uL (140-400); RED BLOOD COUNT 3.75 x10^6/uL (3.50-5.40); RED CELL DISTRIBUTION WIDTH 15.8 % (11.5-14.5); WHITE BLOOD COUNT 7.5 x10^3/uL (4.0-11.0)
[2018-08-02 07:27] LABS: ALBUMIN/GLOBULIN RATIO 0.5 (1.0-1.7); CALCIUM 8.4 mg/dL (8.5-10.1); CREATININE 2.2 mg/dL (0.6-1.0); GFR 27.9; MAGNESIUM 1.8 mg/dL (1.8-2.4); POTASSIUM 3.6 mmol/L (3.5-5.1); TOTAL BILIRUBIN 0.9 mg/dL (0.2-1.0); TOTAL PROTEIN 8.5 g/dL (6.4-8.2)
[2018-08-02] MEDS: TAMSULOSIN 0.4 MG CAP.ER.24H. PO SCH (09:00)
[2018-08-02] MEDS: LABETALOL HCL 200 MG TABLET PO SCH ×2 (09:00→21:06)
[2018-08-02] MEDS: GABAPENTIN 300 MG CAPSULE. PO SCH ×3 (09:00→21:05)
--- NOTE | 2018-08-02 09:44 | PDOC ---
IM PROGRESS NOTES- Subjective Subjective No complaints of abdominal pain, nausea, vomiting, dyspnea, dizziness. No complaints of hematuria or dysuria. Objective Vitals Vital Signs Date Time Temp Pulse Resp B/P (MAP) Pulse Ox O2 Delivery O2 Flow Rate FiO2 08/02/18 07:00 98.6 63 18 127/74 (91) 97 Room Air 98.6 08/01/18 16:08 2.0 Input & Output Intake and Output 08/02/18 07:00 Intake Total 1120 ml Output Total 350 ml Balance 770 ml Intake Oral 120 ml IV Total 1000 ml Output Urine Total 350 ml Physical Exam Physical Exam General appearance - alert,ill appearing, and in no distress and oriented to person, place, and time Mental Status - alert, oriented to person, place, and time, affect appropriate to mood Head - normal Chest - clear to auscultation, no wheezes, rales or rhonchi, symmetric air entry Heart - S1 and S2 normal Abdomen - soft, nontender, nondistended, no masses or organomegaly Neurological - alert and oriented Musculoskeletal - no muscular tenderness noted Extremities - no pedal edema Skin - warm and dry Labs Laboratory Tests Test 08/01/18 10:45 08/01/18 11:30 08/01/18 16:47 08/02/18 05:43 White Blood Count 11.6 x10^3/uL (4.0-11.0) 7.5 x10^3/uL (4.0-11.0) Red Blood Count 4.22 x10^6/uL (3.50-5.40) 3.75 x10^6/uL (3.50-5.40) Hemoglobin 12.3 g/dL (12.0-15.5) 10.9 g/dL (12.0-15.5) Hematocrit 36.6 % (36.0-47.0) 32.8 % (36.0-47.0) Mean Corpuscular Volume 87 fL (79-100) 88 fL (79-100) Mean Corpuscular Hemoglobin 29 pg (25-35) 29 pg (25-35) Mean Corpuscular Hemoglobin Concent 34 g/dL (31-37) 33 g/dL (31-37) Red Cell Distribution Width 15.8 % (11.5-14.5) 15.8 % (11.5-14.5) Platelet Count 226 x10^3/uL (140-400) 199 x10^3/uL (140-400) Neutrophils (%) (Auto) 85 % (31-73) 70 % (31-73) Lymphocytes (%) (Auto) 9 % (24-48) 18 % (24-48) Monocytes (%) (Auto) 5 % (0-9) 10 % (0-9) Eosinophils (%) (Auto) 1 % (0-3) 1 % (0-3) Basophils (%) (Auto) 0 % (0-3) 1 % (0-3) Neutrophils # (Auto) 9.9 x10^3uL (1.8-7.7) 5.2 x10^3uL (1.8-7.7) Lymphocytes # (Auto) 1.0 x10^3/uL (1.0-4.8) 1.3 x10^3/uL (1.0-4.8) Monocytes # (Auto) 0.6 x10^3/uL (0.0-1.1) 0.8 x10^3/uL (0.0-1.1) Eosinophils # (Auto) 0.1 x10^3/uL (0.0-0.7) 0.1 x10^3/uL (0.0-0.7) Basophils # (Auto) 0.1 x10^3/uL (0.0-0.2) 0.0 x10^3/uL (0.0-0.2) Segmented Neutrophils % 83 % (35-66) Band Neutrophils % 3 % (0-9) Lymphocytes % 10 % (24-48) Monocytes % 4 % (0-10) Platelet Estimate Adequate (ADEQUATE) Anisocytosis Present Sodium Level 137 mmol/L (136-145) 140 mmol/L (136-145) Potassium Level 4.5 mmol/L (3.5-5.1) 3.6 mmol/L (3.5-5.1) Chloride Level 104 mmol/L (98-107) 106 mmol/L (98-107) Carbon Dioxide Level 26 mmol/L (21-32) 26 mmol/L (21-32) Anion Gap 7 (6-14) 8 (6-14) Blood Urea Nitrogen 15 mg/dL (7-20) 21 mg/dL (7-20) Creatinine 1.3 mg/dL (0.6-1.0) 2.2 mg/dL (0.6-1.0) Estimated GFR (Cockcroft-Gault) 51.3 27.9 BUN/Creatinine Ratio 12 (6-20) 10 (6-20) Glucose Level 116 mg/dL (70-99) 88 mg/dL (70-99) Calcium Level 9.0 mg/dL (8.5-10.1) 8.4 mg/dL (8.5-10.1) Total Bilirubin 0.9 mg/dL (0.2-1.0) 0.9 mg/dL (0.2-1.0) Aspartate Amino Transf (AST/SGOT) 29 U/L (15-37) 17 U/L (15-37) Alanine Aminotransferase (ALT/SGPT) 29 U/L (14-59) 23 U/L (14-59) Alkaline Phosphatase 77 U/L (46-116) 55 U/L (46-116) Total Protein 9.8 g/dL (6.4-8.2) 8.5 g/dL (6.4-8.2) Albumin 3.8 g/dL (3.4-5.0) 3.0 g/dL (3.4-5.0) Albumin/Globulin Ratio 0.6 (1.0-1.7) 0.5 (1.0-1.7) Urine Collection Type Void Urine Color Yellow Urine Clarity Clear Urine pH 7.5 Urine Specific [place] 1.010 Urine Protein Negative mg/dL (NEG-TRACE) Urine Glucose (UA) Negative mg/dL (NEG) Urine Ketones (Stick) Negative mg/dL (NEG) Urine Blood Moderate (NEG) Urine Nitrite Negative (NEG) Urine Bilirubin Negative (NEG) Urine Urobilinogen Dipstick 0.2 mg/dL (0.2 mg/dL) Urine Leukocyte Esterase Negative (NEG) Urine RBC 11-20 /HPF (0-2) Urine WBC 1-4 /HPF (0-4) Urine Squamous Epithelial Cells Few /LPF Urine Bacteria Many /HPF (0-FEW) Glucose (Fingerstick) 109 mg/dL (70-99) Magnesium Level 1.8 mg/dL (1.8-2.4) Laboratory Tests Test 08/01/18 10:45 08/01/18 11:30 08/01/18 16:47 08/02/18 05:43 White Blood Count 11.6 x10^3/uL (4.0-11.0) 7.5 x10^3/uL (4.0-11.0) Red Blood Count 4.22 x10^6/uL (3.50-5.40) 3.75 x10^6/uL (3.50-5.40) Hemoglobin 12.3 g/dL (12.0-15.5) 10.9 g/dL (12.0-15.5) Hematocrit 36.6 % (36.0-47.0) 32.8 % (36.0-47.0) Mean Corpuscular Volume 87 fL (79-100) 88 fL (79-100) Mean Corpuscular Hemoglobin 29 pg (25-35) 29 pg (25-35) Mean Corpuscular Hemoglobin Concent 34 g/dL (31-37) 33 g/dL (31-37) Red Cell Distribution Width 15.8 % (11.5-14.5) 15.8 % (11.5-14.5) Platelet Count 226 x10^3/uL (140-400) 199 x10^3/uL (140-400) Neutrophils (%) (Auto) 85 % (31-73) 70 % (31-73) Lymphocytes (%) (Auto) 9 % (24-48) 18 % (24-48) Monocytes (%) (Auto) 5 % (0-9) 10 % (0-9) Eosinophils (%) (Auto) 1 % (0-3) 1 % (0-3) Basophils (%) (Auto) 0 % (0-3) 1 % (0-3) Neutrophils # (Auto) 9.9 x10^3uL (1.8-7.7) 5.2 x10^3uL (1.8-7.7) Lymphocytes # (Auto) 1.0 x10^3/uL (1.0-4.8) 1.3 x10^3/uL (1.0-4.8) Monocytes # (Auto) 0.6 x10^3/uL (0.0-1.1) 0.8 x10^3/uL (0.0-1.1) Eosinophils # (Auto) 0.1 x10^3/uL (0.0-0.7) 0.1 x10^3/uL (0.0-0.7) Basophils # (Auto) 0.1 x10^3/uL (0.0-0.2) 0.0 x10^3/uL (0.0-0.2) Segmented Neutrophils % 83 % (35-66) Band Neutrophils % 3 % (0-9) Lymphocytes % 10 % (24-48) Monocytes % 4 % (0-10) Platelet Estimate Adequate (ADEQUATE) Anisocytosis Present Sodium Level 137 mmol/L (136-145) 140 mmol/L (136-145) Potassium Level 4.5 mmol/L (3.5-5.1) 3.6 mmol/L (3.5-5.1) Chloride Level 104 mmol/L (98-107) 106 mmol/L (98-107) Carbon Dioxide Level 26 mmol/L (21-32) 26 mmol/L (21-32) Anion Gap 7 (6-14) 8 (6-14) Blood Urea Nitrogen 15 mg/dL (7-20) 21 mg/dL (7-20) Creatinine 1.3 mg/dL (0.6-1.0) 2.2 mg/dL (0.6-1.0) Estimated GFR (Cockcroft-Gault) 51.3 27.9 BUN/Creatinine Ratio 12 (6-20) 10 (6-20) Glucose Level 116 mg/dL (70-99) 88 mg/dL (70-99) Calcium Level 9.0 mg/dL (8.5-10.1) 8.4 mg/dL (8.5-10.1) Total Bilirubin 0.9 mg/dL (0.2-1.0) 0.9 mg/dL (0.2-1.0) Aspartate Amino Transf (AST/SGOT) 29 U/L (15-37) 17 U/L (15-37) Alanine Aminotransferase (ALT/SGPT) 29 U/L (14-59) 23 U/L (14-59) Alkaline Phosphatase 77 U/L (46-116) 55 U/L (46-116) Total Protein 9.8 g/dL (6.4-8.2) 8.5 g/dL (6.4-8.2) Albumin 3.8 g/dL (3.4-5.0) 3.0 g/dL (3.4-5.0) Albumin/Globulin Ratio 0.6 (1.0-1.7) 0.5 (1.0-1.7) Urine Collection Type Void Urine Color Yellow Urine Clarity Clear Urine pH 7.5 Urine Specific [place] 1.010 Urine Protein Negative mg/dL (NEG-TRACE) Urine Glucose (UA) Negative mg/dL (NEG) Urine Ketones (Stick) Negative mg/dL (NEG) Urine Blood Moderate (NEG) Urine Nitrite Negative (NEG) Urine Bilirubin Negative (NEG) Urine Urobilinogen Dipstick 0.2 mg/dL (0.2 mg/dL) Urine Leukocyte Esterase Negative (NEG) Urine RBC 11-20 /HPF (0-2) Urine WBC 1-4 /HPF (0-4) Urine Squamous Epithelial Cells Few /LPF Urine Bacteria Many /HPF (0-FEW) Glucose (Fingerstick) 109 mg/dL (70-99) Magnesium Level 1.8 mg/dL (1.8-2.4) Meds Current Medications Acetaminophen (Tylenol) 650 mg PRN Q4HRS PRN PO FEVER Last administered on at 16:28; Start 08/01/18 at 13:15; Stop 08/01/18 at 18:29; Status DC Acetaminophen (Tylenol) 650 mg PRN Q6HRS PRN PO MILD PAIN / TEMP; Start at 18:30 Acetaminophen/ Hydrocodone Bitart (Lortab 7.5/325) 1 tab PRN Q6HRS PRN PO MODERATE PAIN Last administered on 08/01/18at 21:14; Start 08/01/18 at 19:30 Ceftriaxone Sodium 1 gm/ Dextrose 50 ml @ 100 mls/hr Q24H IV ; Start 08/01/18 at 18:45; Stop 08/01/18 at 18:46; Status DC Ceftriaxone Sodium (Rocephin) 1 gm Q24H IVP Last administered on 08/01/18at 21:14 ; Start 08/01/18 at 20:00 Cetirizine HCl (ZyrTEC) 10 mg HS PO Last administered on 08/01/18at 21:14; Start 08/01/18 at 21:00 Fentanyl Citrate (Fentanyl 2ml Vial) 50 mcg 1X ONCE IV Last administered on 08/01/18at 11:03; Start 08/01/18 at 10:30; Stop 08/01/18 at 10:31; Status DC Fentanyl Citrate (Fentanyl 2ml Vial) 50 mcg PRN Q2HR PRN IV PAIN; Start at 13:15; Stop 08/02/18 at 13:14 Gabapentin (Neurontin) 600 mg TID PO Last administered on 08/01/18at 21:14; Start 08/01/18 at 21:00 Hydralazine HCl (Apresoline) 50 mg BID PO Last administered on 08/01/18at 21:15; Start 08/01/18 at 21:00 Ketorolac Tromethamine (Toradol 30mg Vial) 30 mg 1X ONCE IV Last administered on 08/01/18at 12:53; Start 08/01/18 at 12:45; Stop 08/01/18 at 12:46; Status DC Labetalol HCl (Trandate) 200 mg BID PO Last administered on 08/01/18at 21:15; Start 08/01/18 at 21:00 Metoprolol Tartrate (Lopressor Vial) 5 mg 1X ONCE IVP Last administered on 08/01at 13:23; Start 08/01/18 at 13:15; Stop 08/01/18 at 13:16; Status DC Metoprolol Tartrate (Lopressor Vial) 5 mg PRN Q6HRS PRN IVP SBP > 160; Start at 18:30 Montelukast Sodium (Singulair) 10 mg QHS PO Last administered on 08/01/18at 21:14 ; Start 08/01/18 at 21:00 Ondansetron HCl (Zofran) 4 mg 1X ONCE IV Last administered on 08/01/18at 12:52; Start 08/01/18 at 12:45; Stop 08/01/18 at 12:46; Status DC Ondansetron HCl (Zofran) 4 mg PRN Q8HRS PRN IV NAUSEA/VOMITING; Start 08/01/18 at 13:15; Stop 08/02/18 at 13:14 Ondansetron HCl (Zofran) 8 mg 1X ONCE IV Last administered on 08/01/18at 10:58; Start 08/01/18 at 10:30; Stop 08/01/18 at 10:31; Status DC Pantoprazole Sodium (Protonix) 40 mg DAILYAC PO ; Start 08/02/18 at 07:30 Simvastatin (Zocor) 20 mg HS PO Last administered on 08/01/18at 21:15; Start 08/01 at 21:00 Sodium Chloride 1,000 ml @ 125 mls/hr Q8H IV Last administered on 08/01/18at 13: 04; Start 08/01/18 at 13:04; Stop 08/01/18 at 18:30; Status DC Sodium Chloride 1,000 ml @ 125 mls/hr Q8H IV Last administered on 08/02/18at 02: 30; Start 08/01/18 at 18:30 Sodium Chloride 1,000 ml @ 1,000 mls/hr 1X ONCE IV Last administered on at 10:56; Start 08/01/18 at 10:30; Stop 08/01/18 at 11:29; Status DC Tamsulosin HCl (Flomax) 0.4 mg DAILY PO Last administered on 08/01/18at 16:32; Start 08/01/18 at 15:30 Assessment Assessment 1. Acute renal colic. 2. Right nephrolithiasis. 3. Hypertensive crisis. 4. Diabetes mellitus, diet controlled. 5. Asthma, controlled, mild intermittent. 6. Morbid obesity. 7. History of galactorrhea. 8. Primary generalized osteoarthritis. 9. Gastroesophageal reflux disease. PLAN: Acute UTI - The patient has leukocytosis and some bacteria in the urine, so I will go ahead and start her on IV Rocephin to cover for UTI. Her leukocytosis may be reactive due to kidney stone. Right nephrolithiasis -Consultation has been obtained with Dr. Lion for Urology evaluation and management. The patient has been scheduled for surgery today. Acute renal failure with CKD - creatinine has increased to 2.2 from 1.3 yesterday. Likely due to obstructive uropathy from kidney stone. Continue IV fluids. Hypokalemia add potassium chloride to IV fluids. Recheck labs in a.m. Hypertensive crisisimproving. The patient's blood pressure was initially very high as she could not take any of her medications this morning and she ran out of doxazosin few days ago. I will restart the medications. I will also keep IV Lopressor p.r.n., so that when she is n.p.o. she can have some blood pressure medication. Diabetes mellitusdiet controlled. We will restart some of her medications . For details, please refer to the orders. Continue to strain urine. Monitor labs and blood sugar. She is improving at this time. Plan Plan For more details regarding further plans, please refer to the orders. KISHAN OLIVARES MD Aug 02, 2018 09:44
[2018-08-02] MEDS: POTASSIUM CHLORIDE 20 MEQ in IV NORMAL SALINE 1000ML BAG 1,000 ML IV SCH ×2 (10:41→17:50)
--- NOTE | 2018-08-02 10:50 | RAD ---
KUB, 08/02/2018: HISTORY: Evaluate kidney stone Bowel content largely obscures the renal regions. The patient's known right intrarenal calculi and recent right ureteropelvic junction region calculus seen on yesterday's CT study are not clearly visible radiographically. A large calcification overlying the lower pelvis on the right has been shown to actually lie in the abdominal pannus anteriorly. The abdominal gas pattern is unremarkable. There is no evidence organomegaly. Surgical clips are present in the right upper quadrant. Severe hypertrophic degenerative changes are present in the spine. IMPRESSION: 1. Inadequate radiographic visualization of the patient's known right renal calculi. 2. No acute abdominal abnormality is detected. Electronically signed by: Lucas Vick MD (08/02/2018 10:46 AM) [facility]
[2018-08-02] MEDS: CIPROFLOXACIN 200MG PREMIX 100 ML IV ONE ×2 (14:30→17:35)
[2018-08-02] MEDS: IV RINGERS,LACTATED 1000ML 1,000 ML IV SCH ×2 (15:00→21:07)
[2018-08-02] MEDS ORDERED: IOHEXOL 300 MG/ML 100ML VIAL. ONE (16:23)
[2018-08-02] MEDS ORDERED: PROPOFOL 20 ML IV ONE (17:18)
[2018-08-02] MEDS ORDERED: ONDANSETRON PF 4 MG/2 ML VIAL. ONE (17:18)
[2018-08-02] MEDS ORDERED: DEXAMETHASONE SOD PHOS 20 MG/5 ML VIAL. ONE (17:18)
[2018-08-02] MEDS ORDERED: fentaNYL PF VIAL 100 MCG/2 ML VIAL ONE (17:19)
[2018-08-02] MEDS ORDERED: IOHEXOL 300 MG/ML 50 ML VIAL. IJ ONE (17:53)
--- NOTE | 2018-08-02 18:03 | PDOC4 ---
OPERATIVE NOTE Pre-Op Diagnosis: right renal stone right ureter stone uti Post-Op Diagnosis: same Procedure Performed: cysto, right rpg interpretation right stent placement Surgeon: Anesthesia Type: ga Blood Loss: 5ml Specimans Obtained: right renal pelvis urine culture Findings: friable and easily bleeding vaginal mucosa. cloudy, murky urine from right renal pelvis Complications: none evident TERE OCAMPO MD Aug 02, 2018 18:03
[2018-08-02] MEDS: MONTELUKAST SODIUM 10 MG TABLET. PO SCH (21:06)
[2018-08-02] MEDS: SIMVASTATIN 20 MG TABLET PO SCH (21:06)
[2018-08-02] MEDS: HYDROcodone/APAP 7.5/325MG 1 TAB TABLET PO PRN (21:06)
[2018-08-02] MEDS: CETIRIZINE HCL 10 MG TABLET. PO SCH (21:06)
[2018-08-02] MEDS: cefTRIAXone IV Push 1 GM VIAL. IVP SCH (21:07)
--- NOTE | 2018-08-02 22:40 | OP ---
DATE OF SURGERY: 08/02/2018 PREOPERATIVE DIAGNOSES: 1. Right renal stone. 2. Right ureter stone. 3. Urinary tract infection. POSTOPERATIVE DIAGNOSES: 1. Right renal stone. 2. Right ureter stone. 3. Urinary tract infection. PROCEDURE: 1. Cystoscopy, right retrograde pyelography interpretation. 2. Right stent placement. SURGEON: Valeria Robertson M.D. ANESTHESIA: General. COMPLICATIONS: None. ESTIMATED BLOOD LOSS: 5 mL. FINDINGS: 1. Easily friable and bleeding vaginal mucosa. 2. Mild hydroureteronephrosis, no distinct ureter filling defects. 3. Murky urine from right renal pelvis. DESCRIPTION OF PROCEDURE: The patient was taken back to the procedure room and placed under general anesthesia per the protocol. She was prepped and draped in usual sterile fashion in dorsal lithotomy position. Time out was performed. SCDs were attached. IV antibiotic was administered. A 21-Spanish rigid cystoscope was advanced per urethra into the bladder. Careful systematic review of the bladder visualized no foreign body, stone or tumors. Right hemitrigone was visualized with right orifice in orthotopic and patent position. This was cannulated with the 5-Spanish open-ended ureteral catheter. A gentle retrograde pyelography visualized mild hydroureteronephrosis with no distinct ureter filling defects. A ureteral catheter as advanced into renal pelvis and cloudy urine was drawn back. This was sent for culture. A sensor wire was placed into the upper pole and a 6 x 26 stent was placed in endourological fashion. The bladder was emptied. The patient was awakened and taken to PACU in stable condition. DISPOSITION: Wait for final urine cultures. She will follow up with me in 2 weeks for delayed ureteroscopy once urine sterility is achieved. VALERIA ROBERTSON MD DR: RADHA/thais JOB#: [id number] / [id number]
[2018-08-03] MEDS: POTASSIUM CHLORIDE 20 MEQ in IV NORMAL SALINE 1000ML BAG 1,000 ML IV SCH ×3 (00:22→18:05)
[2018-08-03 03:00] VITALS: BP 202/99
[2018-08-03] MEDS: METOPROLOL TARTRATE 5 MG/5 ML VIAL. IVP PRN (03:30)
[2018-08-03 04:27] LABS: BASO % 0 % (0-3); EOS % 0 % (0-3); HEMATOCRIT 36.6 % (36.0-47.0); HEMOGLOBIN 12.1 g/dL (12.0-15.5); LYMPH # 0.8 x10^3/uL (1.0-4.8); LYMPH % 9 % (24-48); MEAN CORPUSCULAR HEMOGLOBIN 29 pg (25-35); MEAN CORPUSCULAR HGB CONC 33 g/dL (31-37); MEAN CORPUSCULAR VOLUME 88 fL (79-100); MONO # 0.2 x10^3/uL (0.0-1.1); MONO % 2 % (0-9); NEUT # 7.6 x10^3uL (1.8-7.7); NEUT % 88 % (31-73); PLATELET COUNT 205 x10^3/uL (140-400); RED BLOOD COUNT 4.14 x10^6/uL (3.50-5.40); RED CELL DISTRIBUTION WIDTH 15.8 % (11.5-14.5); WHITE BLOOD COUNT 8.6 x10^3/uL (4.0-11.0)
[2018-08-03] MEDS: PANTOPRAZOLE 40 MG TABLET.DR. PO SCH (06:27)
[2018-08-03 07:00] VITALS: BP 182/76
[2018-08-03] MEDS: LABETALOL HCL 200 MG TABLET PO SCH ×2 (08:10→20:57)
[2018-08-03] MEDS: TAMSULOSIN 0.4 MG CAP.ER.24H. PO SCH (08:10)
[2018-08-03] MEDS: GABAPENTIN 300 MG CAPSULE. PO SCH ×3 (08:10→20:58)
[2018-08-03 08:18] LABS: CALCIUM 8.6 mg/dL (8.5-10.1); CREATININE 1.7 mg/dL (0.6-1.0); GFR 37.6; POTASSIUM 4.4 mmol/L (3.5-5.1)
--- NOTE | 2018-08-03 10:43 | PDOC ---
IM PROGRESS NOTES- Subjective Subjective No complaints of abdominal pain, nausea, vomiting, dyspnea, dizziness. No complaints of hematuria or dysuria. Objective Vitals Vital Signs Date Time Temp Pulse Resp B/P (MAP) Pulse Ox O2 Delivery O2 Flow Rate FiO2 08/03/18 08:10 69 182/76 08/03/18 08:00 Room Air 08/03/18 07:00 97.7 18 97 97.7 08/02/18 18:21 10 Input & Output Intake and Output 08/03/18 07:00 Intake Total 2460 ml Output Total 20 ml Balance 2440 ml IV Total 2460 ml Output Urine Total 0 ml Estimated Blood Loss 20 ml # Voids 5 Physical Exam Physical Exam General appearance - alert,ill appearing, and in no distress and oriented to person, place, and time Mental Status - alert, oriented to person, place, and time, affect appropriate to mood Head - normal Chest - clear to auscultation, no wheezes, rales or rhonchi, symmetric air entry Heart - S1 and S2 normal Abdomen - soft, nontender, nondistended, no masses or organomegaly Neurological - alert and oriented Musculoskeletal - no muscular tenderness noted Extremities - no pedal edema Skin - warm and dry Labs Laboratory Tests Test 08/01/18 10:45 08/01/18 11:30 08/01/18 16:47 08/02/18 05:43 White Blood Count 11.6 x10^3/uL (4.0-11.0) 7.5 x10^3/uL (4.0-11.0) Red Blood Count 4.22 x10^6/uL (3.50-5.40) 3.75 x10^6/uL (3.50-5.40) Hemoglobin 12.3 g/dL (12.0-15.5) 10.9 g/dL (12.0-15.5) Hematocrit 36.6 % (36.0-47.0) 32.8 % (36.0-47.0) Mean Corpuscular Volume 87 fL (79-100) 88 fL (79-100) Mean Corpuscular Hemoglobin 29 pg (25-35) 29 pg (25-35) Mean Corpuscular Hemoglobin Concent 34 g/dL (31-37) 33 g/dL (31-37) Red Cell Distribution Width 15.8 % (11.5-14.5) 15.8 % (11.5-14.5) Platelet Count 226 x10^3/uL (140-400) 199 x10^3/uL (140-400) Neutrophils (%) (Auto) 85 % (31-73) 70 % (31-73) Lymphocytes (%) (Auto) 9 % (24-48) 18 % (24-48) Monocytes (%) (Auto) 5 % (0-9) 10 % (0-9) Eosinophils (%) (Auto) 1 % (0-3) 1 % (0-3) Basophils (%) (Auto) 0 % (0-3) 1 % (0-3) Neutrophils # (Auto) 9.9 x10^3uL (1.8-7.7) 5.2 x10^3uL (1.8-7.7) Lymphocytes # (Auto) 1.0 x10^3/uL (1.0-4.8) 1.3 x10^3/uL (1.0-4.8) Monocytes # (Auto) 0.6 x10^3/uL (0.0-1.1) 0.8 x10^3/uL (0.0-1.1) Eosinophils # (Auto) 0.1 x10^3/uL (0.0-0.7) 0.1 x10^3/uL (0.0-0.7) Basophils # (Auto) 0.1 x10^3/uL (0.0-0.2) 0.0 x10^3/uL (0.0-0.2) Segmented Neutrophils % 83 % (35-66) Band Neutrophils % 3 % (0-9) Lymphocytes % 10 % (24-48) Monocytes % 4 % (0-10) Platelet Estimate Adequate (ADEQUATE) Anisocytosis Present Sodium Level 137 mmol/L (136-145) 140 mmol/L (136-145) Potassium Level 4.5 mmol/L (3.5-5.1) 3.6 mmol/L (3.5-5.1) Chloride Level 104 mmol/L (98-107) 106 mmol/L (98-107) Carbon Dioxide Level 26 mmol/L (21-32) 26 mmol/L (21-32) Anion Gap 7 (6-14) 8 (6-14) Blood Urea Nitrogen 15 mg/dL (7-20) 21 mg/dL (7-20) Creatinine 1.3 mg/dL (0.6-1.0) 2.2 mg/dL (0.6-1.0) Estimated GFR (Cockcroft-Gault) 51.3 27.9 BUN/Creatinine Ratio 12 (6-20) 10 (6-20) Glucose Level 116 mg/dL (70-99) 88 mg/dL (70-99) Calcium Level 9.0 mg/dL (8.5-10.1) 8.4 mg/dL (8.5-10.1) Total Bilirubin 0.9 mg/dL (0.2-1.0) 0.9 mg/dL (0.2-1.0) Aspartate Amino Transf (AST/SGOT) 29 U/L (15-37) 17 U/L (15-37) Alanine Aminotransferase (ALT/SGPT) 29 U/L (14-59) 23 U/L (14-59) Alkaline Phosphatase 77 U/L (46-116) 55 U/L (46-116) Total Protein 9.8 g/dL (6.4-8.2) 8.5 g/dL (6.4-8.2) Albumin 3.8 g/dL (3.4-5.0) 3.0 g/dL (3.4-5.0) Albumin/Globulin Ratio 0.6 (1.0-1.7) 0.5 (1.0-1.7) Urine Collection Type Void Urine Color Yellow Urine Clarity Clear Urine pH 7.5 Urine Specific [place] 1.010 Urine Protein Negative mg/dL (NEG-TRACE) Urine Glucose (UA) Negative mg/dL (NEG) Urine Ketones (Stick) Negative mg/dL (NEG) Urine Blood Moderate (NEG) Urine Nitrite Negative (NEG) Urine Bilirubin Negative (NEG) Urine Urobilinogen Dipstick 0.2 mg/dL (0.2 mg/dL) Urine Leukocyte Esterase Negative (NEG) Urine RBC 11-20 /HPF (0-2) Urine WBC 1-4 /HPF (0-4) Urine Squamous Epithelial Cells Few /LPF Urine Bacteria Many /HPF (0-FEW) Glucose (Fingerstick) 109 mg/dL (70-99) Magnesium Level 1.8 mg/dL (1.8-2.4) Test 08/02/18 10:50 08/02/18 19:06 08/02/18 20:51 08/03/18 03:45 Glucose (Fingerstick) 90 mg/dL (70-99) 83 mg/dL (70-99) 142 mg/dL (70-99) White Blood Count 8.6 x10^3/uL (4.0-11.0) Red Blood Count 4.14 x10^6/uL (3.50-5.40) Hemoglobin 12.1 g/dL (12.0-15.5) Hematocrit 36.6 % (36.0-47.0) Mean Corpuscular Volume 88 fL (79-100) Mean Corpuscular Hemoglobin 29 pg (25-35) Mean Corpuscular Hemoglobin Concent 33 g/dL (31-37) Red Cell Distribution Width 15.8 % (11.5-14.5) Platelet Count 205 x10^3/uL (140-400) Neutrophils (%) (Auto) 88 % (31-73) Lymphocytes (%) (Auto) 9 % (24-48) Monocytes (%) (Auto) 2 % (0-9) Eosinophils (%) (Auto) 0 % (0-3) Basophils (%) (Auto) 0 % (0-3) Neutrophils # (Auto) 7.6 x10^3uL (1.8-7.7) Lymphocytes # (Auto) 0.8 x10^3/uL (1.0-4.8) Monocytes # (Auto) 0.2 x10^3/uL (0.0-1.1) Eosinophils # (Auto) 0.0 x10^3/uL (0.0-0.7) Basophils # (Auto) 0.0 x10^3/uL (0.0-0.2) Test 08/03/18 07:39 Sodium Level 140 mmol/L (136-145) Potassium Level 4.4 mmol/L (3.5-5.1) Chloride Level 105 mmol/L (98-107) Carbon Dioxide Level 25 mmol/L (21-32) Anion Gap 10 (6-14) Blood Urea Nitrogen 21 mg/dL (7-20) Creatinine 1.7 mg/dL (0.6-1.0) Estimated GFR (Cockcroft-Gault) 37.6 Glucose Level 131 mg/dL (70-99) Calcium Level 8.6 mg/dL (8.5-10.1) Laboratory Tests Test 08/02/18 10:50 08/02/18 19:06 08/02/18 20:51 08/03/18 03:45 Glucose (Fingerstick) 90 mg/dL (70-99) 83 mg/dL (70-99) 142 mg/dL (70-99) White Blood Count 8.6 x10^3/uL (4.0-11.0) Red Blood Count 4.14 x10^6/uL (3.50-5.40) Hemoglobin 12.1 g/dL (12.0-15.5) Hematocrit 36.6 % (36.0-47.0) Mean Corpuscular Volume 88 fL (79-100) Mean Corpuscular Hemoglobin 29 pg (25-35) Mean Corpuscular Hemoglobin Concent 33 g/dL (31-37) Red Cell Distribution Width 15.8 % (11.5-14.5) Platelet Count 205 x10^3/uL (140-400) Neutrophils (%) (Auto) 88 % (31-73) Lymphocytes (%) (Auto) 9 % (24-48) Monocytes (%) (Auto) 2 % (0-9) Eosinophils (%) (Auto) 0 % (0-3) Basophils (%) (Auto) 0 % (0-3) Neutrophils # (Auto) 7.6 x10^3uL (1.8-7.7) Lymphocytes # (Auto) 0.8 x10^3/uL (1.0-4.8) Monocytes # (Auto) 0.2 x10^3/uL (0.0-1.1) Eosinophils # (Auto) 0.0 x10^3/uL (0.0-0.7) Basophils # (Auto) 0.0 x10^3/uL (0.0-0.2) Test 08/03/18 07:39 Sodium Level 140 mmol/L (136-145) Potassium Level 4.4 mmol/L (3.5-5.1) Chloride Level 105 mmol/L (98-107) Carbon Dioxide Level 25 mmol/L (21-32) Anion Gap 10 (6-14) Blood Urea Nitrogen 21 mg/dL (7-20) Creatinine 1.7 mg/dL (0.6-1.0) Estimated GFR (Cockcroft-Gault) 37.6 Glucose Level 131 mg/dL (70-99) Calcium Level 8.6 mg/dL (8.5-10.1) Meds Current Medications Ciprofloxacin/ Dextrose 100 ml @ 100 mls/hr 1X ONCE IV Last administered on at 17:35; Start 08/02/18 at 14:30; Stop 08/02/18 at 15:29; Status DC Dexamethasone Sodium Phosphate (Decadron) 20 mg STK-MED ONCE .ROUTE ; Start 08/02 at 17:18; Stop 08/02/18 at 17:19; Status DC Doxazosin Mesylate (Cardura) 8 mg HS PO ; Start 08/03/18 at 21:00; Status UNV Fentanyl Citrate (Fentanyl 2ml Vial) 100 mcg STK-MED ONCE .ROUTE ; Start at 17:19; Stop 08/02/18 at 17:20; Status DC Hydralazine HCl (Apresoline) 50 mg TID PO ; Start 08/03/18 at 10:45; Status UNV Iohexol (Omnipaque 300 Mg/ml) 50 ml STK-MED ONCE IJ Last administered on at 17:53; Start 08/02/18 at 17:53; Stop 08/02/18 at 17:56; Status DC Iohexol (Omnipaque 300 Mg/ml) 100 ml STK-MED ONCE .ROUTE ; Start 08/02/18 at 16: 23; Stop 08/02/18 at 17:23; Status DC Lactobacillus Rhamnosus (Culturelle) 1 cap BID PO ; Start 08/03/18 at 21:00 Ondansetron HCl (Zofran) 4 mg STK-MED ONCE .ROUTE ; Start 08/02/18 at 17:18; Stop 08/02/18 at 17:19; Status DC Propofol 20 ml @ As Directed STK-MED ONCE IV ; Start 08/02/18 at 17:18; Stop 08/02 at 17:19; Status DC Ringer's Solution 1,000 ml @ 125 mls/hr Q8H IV Last administered on 08/02/18at 15:00; Start 08/02/18 at 15:00; Stop 08/03/18 at 02:59; Status DC Assessment Assessment 1. Acute renal colic. 2. Right nephrolithiasis. 3. Hypertensive crisis. 4. Diabetes mellitus, diet controlled. 5. Asthma, controlled, mild intermittent. 6. Morbid obesity. 7. History of galactorrhea. 8. Primary generalized osteoarthritis. 9. Gastroesophageal reflux disease. PLAN: Acute UTI - The patient has leukocytosis and some bacteria in the urine, so I will go ahead and start her on IV Rocephin to cover for UTI. Her leukocytosis may be reactive due to kidney stone. Urine culture pending. Right nephrolithiasis -Consultation has been obtained with Dr. Lion for Urology evaluation and management. The patient has a right ureteral stent placed with cystoscopy done yesterday. Acute renal failure with CKD - creatinine has increased to 2.2 from 1.3 yesterday. Likely due to obstructive uropathy from kidney stone. Continue IV fluids. Creatinine is 1.7 today. Continue IV fluids. Hypokalemia add potassium chloride to IV fluids. Recheck labs in a.m. Hypertensive crisis Not improving. The patient's blood pressure remains very high as she could not take any of her medications this morning and she ran out of doxazosin few days ago. I will restart the medications. I will also keep IV Lopressor p.r.n., so that when she is n.p.o. she can have some blood pressure medication. Increase hydralazine to 50 mg 3 times a day. Add doxazosin 8 mg daily at bedtime Diabetes mellitusdiet controlled. We will restart some of her medications . For details, please refer to the orders. Continue to strain urine. Monitor labs and blood sugar. She is improving at this time. Plan Plan For more details regarding further plans, please refer to the orders. KISHAN OLIVARES MD Aug 03, 2018 10:43
[2018-08-03 11:00] VITALS: BP 167/91
--- NOTE | 2018-08-03 13:19 | PDOC ---
SUBJECTIVE Subjective Pt resting comfortably, no complaints today. Some mild burning. Feeling better overall since the surgery OBJECTIVE Objective Physical Exam: General appearance: Alert and Oriented Head: Normocephalic, without obvious abnormality Eyes: conjunctivae/corneas clear. PERRL, EOM's intact. Fundi benign Back: negative, no CVA pain Lungs: regular respirations, non labored breathing Abdomen: soft, obese, non tender Pelvic: deferred Vital Signs Vital Signs Date Time Temp Pulse Resp B/P (MAP) Pulse Ox O2 Delivery O2 Flow Rate FiO2 08/03/18 11:00 97.7 64 16 167/91 (116) 99 Room Air 97.7 08/03/18 10:46 64 167/91 08/03/18 08:10 69 182/76 08/03/18 08:10 69 182/76 08/03/18 08:00 Room Air 08/03/18 07:00 97.7 69 18 182/76 (111) 97 Room Air 97.7 08/03/18 03:30 67 202/99 08/03/18 03:00 98.6 67 20 202/99 (133) 98 Room Air 98.6 08/02/18 23:00 97.9 64 22 195/80 (118) 97 Room Air 97.9 08/02/18 22:00 Room Air 08/02/18 21:06 68 221/91 08/02/18 21:06 Room Air 08/02/18 21:05 68 221/91 08/02/18 21:00 78 22 203/96 (131) 95 Room Air 08/02/18 20:30 70 221/91 (134) 93 Room Air 08/02/18 20:07 Room Air 08/02/18 20:00 62 184/92 (122) 90 Room Air 08/02/18 19:45 58 185/81 (115) 90 Room Air 08/02/18 19:30 58 22 180/88 (118) 90 Room Air 08/02/18 19:00 96.4 64 18 178/64 (102) 94 Room Air 96.4 08/02/18 18:51 98.2 60 22 185/91 97 Room Air 98.2 08/02/18 18:36 98.2 60 22 179/79 97 Room Air 98.2 08/02/18 18:21 98.2 68 18 194/85 99 Simple Mask 10 98.2 08/02/18 18:15 Mask 10 08/02/18 18:05 98.2 72 16 173/84 99 Simple Mask 10 98.2 08/02/18 14:25 97.6 65 22 173/79 99 Room Air 97.6 I & O Intake and Output 08/03/18 07:00 Intake Total 2460 ml Output Total 20 ml Balance 2440 ml IV Total 2460 ml Output Urine Total 0 ml Estimated Blood Loss 20 ml # Voids 5 PHYSICAL EXAM Physical Exam Physical Exam: General appearance: Alert and Oriented Head: Normocephalic, without obvious abnormality Eyes: conjunctivae/corneas clear. PERRL, EOM's intact. Fundi benign Back: negative, no CVA pain Lungs: regular respirations, non labored breathing Abdomen: soft, obese, non tender Pelvic: deferred ASSESSMENT/PLAN Assessment/Plan Pt is SP stent placement POD #[address] Robertson. She will need a follow up procedure roughly two weeks from today. Schedulers from [facility] office should be calling patient soon. She verbalizes understanding Pt is comfortable with the stent. Informed patient that it is normal to see red tinged or orange -tinged urine or urine with some small, occasional blood clots secondary to stent. Please call for very dark (wine-colored) urine or urine with large 1/2 dollar sized clots. Urine culture is back with gram negative results. Pt next scheduled to receive Rocephin at 2000 tonight, Continue. Currently afebrile. Whenever she does go home, should go home with enough antibiotics to equal one week of treatment. Foreclosure Home Inspector is down to just 1.7 today and patient BP is still elevated. Medical team would like to keep her one more night at least, agree. Discussed plan of care with patient and attending RN. Problems: (1) UTI (urinary tract infection) (2) Renal calculi COMMENT Lab Laboratory Tests Test 08/02/18 19:06 08/02/18 20:51 08/03/18 03:45 08/03/18 07:39 Glucose (Fingerstick) 83 mg/dL (70-99) 142 mg/dL (70-99) White Blood Count 8.6 x10^3/uL (4.0-11.0) Red Blood Count 4.14 x10^6/uL (3.50-5.40) Hemoglobin 12.1 g/dL (12.0-15.5) Hematocrit 36.6 % (36.0-47.0) Mean Corpuscular Volume 88 fL (79-100) Mean Corpuscular Hemoglobin 29 pg (25-35) Mean Corpuscular Hemoglobin Concent 33 g/dL (31-37) Red Cell Distribution Width 15.8 % (11.5-14.5) Platelet Count 205 x10^3/uL (140-400) Neutrophils (%) (Auto) 88 % (31-73) Lymphocytes (%) (Auto) 9 % (24-48) Monocytes (%) (Auto) 2 % (0-9) Eosinophils (%) (Auto) 0 % (0-3) Basophils (%) (Auto) 0 % (0-3) Neutrophils # (Auto) 7.6 x10^3uL (1.8-7.7) Lymphocytes # (Auto) 0.8 x10^3/uL (1.0-4.8) Monocytes # (Auto) 0.2 x10^3/uL (0.0-1.1) Eosinophils # (Auto) 0.0 x10^3/uL (0.0-0.7) Basophils # (Auto) 0.0 x10^3/uL (0.0-0.2) Sodium Level 140 mmol/L (136-145) Potassium Level 4.4 mmol/L (3.5-5.1) Chloride Level 105 mmol/L (98-107) Carbon Dioxide Level 25 mmol/L (21-32) Anion Gap 10 (6-14) Blood Urea Nitrogen 21 mg/dL (7-20) Creatinine 1.7 mg/dL (0.6-1.0) Estimated GFR (Cockcroft-Gault) 37.6 Glucose Level 131 mg/dL (70-99) Calcium Level 8.6 mg/dL (8.5-10.1) Imaging Impression: 1. There is now mild right hydronephrosis, increased strandy change of the right perinephric fat which may be due to forniceal rupture versus pyelonephritis. There has been migration of calculi to the right renal pelvis and now 0.8 cm calculus near the right ureteropelvic junction. There is also mild strandy change about the right ureter which is not significantly dilated. 2. There is diffuse hepatic steatosis. 3. There is again nonspecific left adrenal nodule although similar to April 2017 exam. 4. There are again 2 ventral fat-containing hernias, largest near the umbilicus and one just superiorly. 5. There is again nonspecific bilateral inguinal lymphadenopathy, also along the iliac chains. ANTONETTE MORTON CHEMIST INTERN Aug 03, 2018 13:19
[2018-08-03 15:05] VITALS: BP 147/88
[2018-08-03] MEDS: HYDROcodone/APAP 7.5/325MG 1 TAB TABLET PO PRN (18:35)
[2018-08-03 19:15] VITALS: BP 180/82
[2018-08-03] MEDS: CETIRIZINE HCL 10 MG TABLET. PO SCH (20:57)
[2018-08-03] MEDS: MONTELUKAST SODIUM 10 MG TABLET. PO SCH (20:57)
[2018-08-03] MEDS: LACTOBACILLUS RHAMNOSUS GG 1 CAPSULE. PO SCH (20:58)
[2018-08-03] MEDS: cefTRIAXone IV Push 1 GM VIAL. IVP SCH (20:58)
[2018-08-03] MEDS: SIMVASTATIN 20 MG TABLET PO SCH (20:59)
[2018-08-03] MEDS ORDERED: DOXAZOSIN MESYLATE 4 MG TABLET. PO SCH (21:00)
[2018-08-03 23:18] VITALS: BP 162/82
[2018-08-04 03:27] VITALS: BP 154/78
[2018-08-04] MEDS: PANTOPRAZOLE 40 MG TABLET.DR. PO SCH (07:40)
[2018-08-04] MEDS: TAMSULOSIN 0.4 MG CAP.ER.24H. PO SCH (07:41)
[2018-08-04] MEDS: LACTOBACILLUS RHAMNOSUS GG 1 CAPSULE. PO SCH (07:41)
[2018-08-04] MEDS: GABAPENTIN 300 MG CAPSULE. PO SCH (07:41)
[2018-08-04 07:45] VITALS: BP 151/79
[2018-08-04 08:05] LABS: CALCIUM 8.8 mg/dL (8.5-10.1); CREATININE 1.4 mg/dL (0.6-1.0); GFR 47.1; POTASSIUM 3.7 mmol/L (3.5-5.1)
--- NOTE | 2018-08-04 09:13 | PDOC ---
SUBJECTIVE Subjective Patient had a good niht. WOuld like to go home if possible. No fevers. Not sure how her BP is doing but she is not having any headaches or dizziness. She is voiding well. Every once in a while she sees some red tinged or koolaid colored urine with out clots, but no dysuria OBJECTIVE Objective Physical Exam: General appearance: Alert and Oriented Head: Normocephalic, without obvious abnormality Eyes: conjunctivae/corneas clear. PERRL, EOM's intact. Fundi benign Back: negative, no CVA pain bilaterally Lungs: regular respirations, non labored breathing Abdomen: soft, obese, non tender Pelvic: deferred Vital Signs Vital Signs Date Time Temp Pulse Resp B/P (MAP) Pulse Ox O2 Delivery O2 Flow Rate FiO2 08/04/18 07:45 47 16 151/79 (103) Room Air 08/04/18 07:41 47 151/79 08/04/18 03:27 97.8 47 22 154/78 (103) 96 Room Air 97.8 08/03/18 23:18 97.7 53 18 162/82 (108) 92 Room Air 97.7 08/03/18 20:58 66 180/82 08/03/18 20:57 66 180/82 08/03/18 20:57 66 180/82 08/03/18 20:00 Room Air 08/03/18 19:35 Room Air 08/03/18 19:15 97.7 66 18 180/82 (114) 95 Room Air 97.7 08/03/18 18:35 16 Room Air 08/03/18 15:06 57 147/88 08/03/18 15:05 57 14 147/88 (107) 92 Room Air 08/03/18 11:00 97.7 64 16 167/91 (116) 99 Room Air 97.7 08/03/18 10:46 64 167/91 I & O Intake and Output 08/04/18 07:00 Intake Total 360 ml Balance 360 ml Intake Oral 360 ml # Voids 5 PHYSICAL EXAM Physical Exam Physical Exam: General appearance: Alert and Oriented Head: Normocephalic, without obvious abnormality Eyes: conjunctivae/corneas clear. PERRL, EOM's intact. Fundi benign Back: negative, no CVA pain bilaterally Lungs: regular respirations, non labored breathing Abdomen: soft, obese, non tender Pelvic: deferred ASSESSMENT/PLAN Assessment/Plan From a Urology standpoint could go home. curriculum and instruction director should be calling her to set up a date for her follow up surgery. Pt has Dr. Robertson's card/Contact information. All questions answered. Red tinged urine WNL for someone with a stent. Please report very dark (wine- colored urine) or urine with large 1/2 dollar sized clots to nursing staff. If she does go home today or over the weekend, recommend she leave with enough antibiotic coverage to equal one week of therapy. Continue Rocephin while in house. Will follow peripherally over the weekend. Please call with questions or change in patient status over the weekend. Problems: (1) Renal calculi COMMENT Lab Laboratory Tests Test 08/03/18 11:41 08/03/18 17:25 08/03/18 20:52 08/04/18 07:30 Glucose (Fingerstick) 106 mg/dL (70-99) 161 mg/dL (70-99) 110 mg/dL (70-99) Sodium Level 141 mmol/L (136-145) Potassium Level 3.7 mmol/L (3.5-5.1) Chloride Level 106 mmol/L (98-107) Carbon Dioxide Level 26 mmol/L (21-32) Anion Gap 9 (6-14) Blood Urea Nitrogen 24 mg/dL (7-20) Creatinine 1.4 mg/dL (0.6-1.0) Estimated GFR (Cockcroft-Gault) 47.1 Glucose Level 90 mg/dL (70-99) Calcium Level 8.8 mg/dL (8.5-10.1) Test 08/04/18 08:06 Glucose (Fingerstick) 121 mg/dL (70-99) Imaging CT ABD/Pelvis Impression: 1. There is now mild right hydronephrosis, increased strandy change of the right perinephric fat which may be due to forniceal rupture versus pyelonephritis. There has been migration of calculi to the right renal pelvis and now 0.8 cm calculus near the right ureteropelvic junction. There is also mild strandy change about the right ureter which is not significantly dilated. 2. There is diffuse hepatic steatosis. 3. There is again nonspecific left adrenal nodule although similar to April 2017 exam. 4. There are again 2 ventral fat-containing hernias, largest near the umbilicus and one just superiorly. 5. There is again nonspecific bilateral inguinal lymphadenopathy, also along the iliac chains. ANTONETTE MORTON DOBBY LOOM CHAIN PEGGER Aug 04, 2018 09:13
[2018-08-04 09:40] VITALS: BP 167/77
--- NOTE | 2018-08-04 10:07 | PDOC3 ---
IM DISCHARGE SUMMARY Date of Admission Date of Admission Date of Admission: Aug 01, 2018 at 12:38 Date of Discharge Date of Discharge 08/04/18 Primary Diagnosis Primary Diagnosis 1. Acute renal colic. 2. Right nephrolithiasis. 3. Hypertensive crisis. 4. Diabetes mellitus, diet controlled. 5. Asthma, controlled, mild intermittent. 6. Morbid obesity. 7. History of galactorrhea. 8. Primary generalized osteoarthritis. 9. Gastroesophageal reflux disease. 10.Left adrenal adenoma 2.6 cm 11. E.coli UTI 12. Hypokalemia Procedures cystoscopy with right ureteral stent Consults Consults Valeria Robertson MD Labs Labs Laboratory Tests Test 08/01/18 10:45 08/01/18 11:30 08/01/18 16:47 08/02/18 05:43 White Blood Count 11.6 x10^3/uL (4.0-11.0) 7.5 x10^3/uL (4.0-11.0) Red Blood Count 4.22 x10^6/uL (3.50-5.40) 3.75 x10^6/uL (3.50-5.40) Hemoglobin 12.3 g/dL (12.0-15.5) 10.9 g/dL (12.0-15.5) Hematocrit 36.6 % (36.0-47.0) 32.8 % (36.0-47.0) Mean Corpuscular Volume 87 fL (79-100) 88 fL (79-100) Mean Corpuscular Hemoglobin 29 pg (25-35) 29 pg (25-35) Mean Corpuscular Hemoglobin Concent 34 g/dL (31-37) 33 g/dL (31-37) Red Cell Distribution Width 15.8 % (11.5-14.5) 15.8 % (11.5-14.5) Platelet Count 226 x10^3/uL (140-400) 199 x10^3/uL (140-400) Neutrophils (%) (Auto) 85 % (31-73) 70 % (31-73) Lymphocytes (%) (Auto) 9 % (24-48) 18 % (24-48) Monocytes (%) (Auto) 5 % (0-9) 10 % (0-9) Eosinophils (%) (Auto) 1 % (0-3) 1 % (0-3) Basophils (%) (Auto) 0 % (0-3) 1 % (0-3) Neutrophils # (Auto) 9.9 x10^3uL (1.8-7.7) 5.2 x10^3uL (1.8-7.7) Lymphocytes # (Auto) 1.0 x10^3/uL (1.0-4.8) 1.3 x10^3/uL (1.0-4.8) Monocytes # (Auto) 0.6 x10^3/uL (0.0-1.1) 0.8 x10^3/uL (0.0-1.1) Eosinophils # (Auto) 0.1 x10^3/uL (0.0-0.7) 0.1 x10^3/uL (0.0-0.7) Basophils # (Auto) 0.1 x10^3/uL (0.0-0.2) 0.0 x10^3/uL (0.0-0.2) Segmented Neutrophils % 83 % (35-66) Band Neutrophils % 3 % (0-9) Lymphocytes % 10 % (24-48) Monocytes % 4 % (0-10) Platelet Estimate Adequate (ADEQUATE) Anisocytosis Present Sodium Level 137 mmol/L (136-145) 140 mmol/L (136-145) Potassium Level 4.5 mmol/L (3.5-5.1) 3.6 mmol/L (3.5-5.1) Chloride Level 104 mmol/L (98-107) 106 mmol/L (98-107) Carbon Dioxide Level 26 mmol/L (21-32) 26 mmol/L (21-32) Anion Gap 7 (6-14) 8 (6-14) Blood Urea Nitrogen 15 mg/dL (7-20) 21 mg/dL (7-20) Creatinine 1.3 mg/dL (0.6-1.0) 2.2 mg/dL (0.6-1.0) Estimated GFR (Cockcroft-Gault) 51.3 27.9 BUN/Creatinine Ratio 12 (6-20) 10 (6-20) Glucose Level 116 mg/dL (70-99) 88 mg/dL (70-99) Calcium Level 9.0 mg/dL (8.5-10.1) 8.4 mg/dL (8.5-10.1) Total Bilirubin 0.9 mg/dL (0.2-1.0) 0.9 mg/dL (0.2-1.0) Aspartate Amino Transf (AST/SGOT) 29 U/L (15-37) 17 U/L (15-37) Alanine Aminotransferase (ALT/SGPT) 29 U/L (14-59) 23 U/L (14-59) Alkaline Phosphatase 77 U/L (46-116) 55 U/L (46-116) Total Protein 9.8 g/dL (6.4-8.2) 8.5 g/dL (6.4-8.2) Albumin 3.8 g/dL (3.4-5.0) 3.0 g/dL (3.4-5.0) Albumin/Globulin Ratio 0.6 (1.0-1.7) 0.5 (1.0-1.7) Urine Collection Type Void Urine Color Yellow Urine Clarity Clear Urine pH 7.5 Urine Specific [place] 1.010 Urine Protein Negative mg/dL (NEG-TRACE) Urine Glucose (UA) Negative mg/dL (NEG) Urine Ketones (Stick) Negative mg/dL (NEG) Urine Blood Moderate (NEG) Urine Nitrite Negative (NEG) Urine Bilirubin Negative (NEG) Urine Urobilinogen Dipstick 0.2 mg/dL (0.2 mg/dL) Urine Leukocyte Esterase Negative (NEG) Urine RBC 11-20 /HPF (0-2) Urine WBC 1-4 /HPF (0-4) Urine Squamous Epithelial Cells Few /LPF Urine Bacteria Many /HPF (0-FEW) Glucose (Fingerstick) 109 mg/dL (70-99) Magnesium Level 1.8 mg/dL (1.8-2.4) Test 08/02/18 10:50 08/02/18 19:06 08/02/18 20:51 08/03/18 03:45 Glucose (Fingerstick) 90 mg/dL (70-99) 83 mg/dL (70-99) 142 mg/dL (70-99) White Blood Count 8.6 x10^3/uL (4.0-11.0) Red Blood Count 4.14 x10^6/uL (3.50-5.40) Hemoglobin 12.1 g/dL (12.0-15.5) Hematocrit 36.6 % (36.0-47.0) Mean Corpuscular Volume 88 fL (79-100) Mean Corpuscular Hemoglobin 29 pg (25-35) Mean Corpuscular Hemoglobin Concent 33 g/dL (31-37) Red Cell Distribution Width 15.8 % (11.5-14.5) Platelet Count 205 x10^3/uL (140-400) Neutrophils (%) (Auto) 88 % (31-73) Lymphocytes (%) (Auto) 9 % (24-48) Monocytes (%) (Auto) 2 % (0-9) Eosinophils (%) (Auto) 0 % (0-3) Basophils (%) (Auto) 0 % (0-3) Neutrophils # (Auto) 7.6 x10^3uL (1.8-7.7) Lymphocytes # (Auto) 0.8 x10^3/uL (1.0-4.8) Monocytes # (Auto) 0.2 x10^3/uL (0.0-1.1) Eosinophils # (Auto) 0.0 x10^3/uL (0.0-0.7) Basophils # (Auto) 0.0 x10^3/uL (0.0-0.2) Test 08/03/18 07:39 08/03/18 07:43 08/03/18 11:41 08/03/18 17:25 Sodium Level 140 mmol/L (136-145) Potassium Level 4.4 mmol/L (3.5-5.1) Chloride Level 105 mmol/L (98-107) Carbon Dioxide Level 25 mmol/L (21-32) Anion Gap 10 (6-14) Blood Urea Nitrogen 21 mg/dL (7-20) Creatinine 1.7 mg/dL (0.6-1.0) Estimated GFR (Cockcroft-Gault) 37.6 Glucose Level 131 mg/dL (70-99) Calcium Level 8.6 mg/dL (8.5-10.1) Glucose (Fingerstick) 122 mg/dL (70-99) 106 mg/dL (70-99) 161 mg/dL (70-99) Test 08/03/18 20:52 08/04/18 07:30 08/04/18 08:06 Glucose (Fingerstick) 110 mg/dL (70-99) 121 mg/dL (70-99) Sodium Level 141 mmol/L (136-145) Potassium Level 3.7 mmol/L (3.5-5.1) Chloride Level 106 mmol/L (98-107) Carbon Dioxide Level 26 mmol/L (21-32) Anion Gap 9 (6-14) Blood Urea Nitrogen 24 mg/dL (7-20) Creatinine 1.4 mg/dL (0.6-1.0) Estimated GFR (Cockcroft-Gault) 47.1 Glucose Level 90 mg/dL (70-99) Calcium Level 8.8 mg/dL (8.5-10.1) Brief hospital course Brief hospital course This 57 year old female who presented with right-sided abdominal pain. She was noted to have a kidney stone near the right ureteropelvic junction. For more details regarding the past history, family history, social history, surgical history and other details, please refer to History and Physical. Acute UTI - The patient has leukocytosis and some bacteria in the urine, so I will go ahead and start her on IV Rocephin to cover for UTI. Her leukocytosis may be reactive due to kidney stone. Urine culture shows Escherichia coli UTI. I will discharge her on Keflex 500 mg 3 times a day for one week. Right nephrolithiasis -Consultation has been obtained with Dr. Lion for Urology evaluation and management. The patient has a right ureteral stent placed with cystoscopy done yesterday. Acute renal failure with CKD - creatinine has increased to 2.2 from 1.3 yesterday. Likely due to obstructive uropathy from kidney stone. Continue IV fluids. Creatinine is 1.4 today. Continue IV fluids. Hypokalemia add potassium chloride to IV fluids. Recheck labs in a.m. Hypertensive crisis Not improving. The patient's blood pressure remains very high as she could not take any of her medications this morning and she ran out of doxazosin few days ago. I will restart the medications. I will also keep IV Lopressor p.r.n., so that when she is n.p.o. she can have some blood pressure medication. Increase hydralazine to 50 mg 3 times a day. Add doxazosin 8 mg daily at bedtime. Blood pressure is much better now and hypertensive crisis has resolved and patient will be discharged on her home medications. Diabetes mellitusdiet controlled. Left anginal adenoma - in 6 cm size. No change since her previous scan in April 2017. I will refer her to an industrial design intern as outpatient for further monitoring and treatment. This was discussed with the patient. Patient is feeling much better today and we'll discharge her home. Medications Medications reviewed and reconciled for discharge. Allergy Allergies Coded Allergies Type Severity Reaction Last Updated Verified morphine Allergy Intermediate TOLERATES HYDROCODONE 04/09/18 Yes Follow up in 5 days. Patient will also follow with the urologist. DISPOSITION: Home Comments Discharge Management - 35 minutes. Condition at the time of discharge much better For other details please refer to discharge instructions KISHAN OLIVARES MD Aug 04, 2018 10:07
--- NOTE | 2018-08-04 10:08 | DISCH ---
DISCHARGE INSTRUCTIONS Condition on Discharge Condition on Discharge: Stable Activity After Discharge Activity Instructions for Disc: Activity as tolerated Exercise Instruction after Dis: Progress as tolerated Weight Bearing Status after Di: As tolerated Diet after Discharge Diet after Discharge: Cardiac, Diabetic No Calorie Level Contacting the [facility] after DC Call your doctor for: Concerns you may have Follow-Up Follow up with: Dr. KISHAN Olivares in 5 days. Patient will also follow-up with the urologist. KISHAN OLIVARES MD Aug 04, 2018 10:08
[2018-08-04] MEDS ORDERED: CEPH500C PO (10:11)
[2018-08-04 11:00] VITALS: BP 187/85
[2018-08-04] MEDS: LABETALOL HCL 200 MG TABLET PO SCH (11:13)
[2018-08-04] MEDS: METOPROLOL TARTRATE 5 MG/5 ML VIAL. IVP PRN (11:13)
[2018-08-04 14:15] VITALS: BP 127/78
== END 2018-08-04 14:30 | disposition home or self-care (01) | DRG 683 ==
LOC: ER 10:08 → 4 NORTH 12:38
PROVIDERS: ADMIT Internal Medicine; ATTEND Internal Medicine
PROC: 0T768DZ Dilation of Right Ureter with Intraluminal Device, Via Natural or Artificial Opening Endoscopic (ICD-10-PCS; 2018-08-02)
PROC: BT1D1ZZ Fluoroscopy of Right Kidney, Ureter and Bladder using Low Osmolar Contrast (ICD-10-PCS; principal; 2018-08-02 16:00)
DX: N17.0 Acute kidney failure with tubular necrosis (principal); I16.9 Hypertensive crisis, unspecified; N13.6 Pyonephrosis; B96.20 Unspecified Escherichia coli [E. coli] as the cause of diseases classified elsewhere; E11.22 Type 2 diabetes mellitus with diabetic chronic kidney disease; E66.01 Morbid (severe) obesity due to excess calories; E78.00 Pure hypercholesterolemia, unspecified; E78.5 Hyperlipidemia, unspecified; E87.6 Hypokalemia; G47.30 Sleep apnea, unspecified; I12.9 Hypertensive chronic kidney disease with stage 1 through stage 4 chronic kidney disease, or unspecified chronic kidney disease; I20.9 Angina pectoris, unspecified; J45.909 Unspecified asthma, uncomplicated; K21.9 Gastro-esophageal reflux disease without esophagitis; K76.0 Fatty (change of) liver, not elsewhere classified; F32.9 Major depressive disorder, single episode, unspecified; M19.90 Unspecified osteoarthritis, unspecified site; N18.9 Chronic kidney disease, unspecified; Z80.0 Family history of malignant neoplasm of digestive organs; Z80.8 Family history of malignant neoplasm of other organs or systems; Z82.49 Family history of ischemic heart disease and other diseases of the circulatory system; Z87.442 Personal history of urinary calculi; Z83.3 Family history of diabetes mellitus; Z90.49 Acquired absence of other specified parts of digestive tract; Z88.5 Allergy status to narcotic agent
CPT/HCPCS: 36415; 74018; 74176; 76000; 80048; 80053; 81001; 82962; 83735; 85007; 85025; 87086; 87186; 96361; 96374; 96375; 96376; A7015; C1769; C2617; J0696; J0744; J1100; J1885; J2405; J2704; J3010; J3480; J3490; J7030; J7120; Q9967; 99285-25

== ENCOUNTER 2018-08-23 12:49 | Day surgery (SDC) | payer MEDICARE ==
[~2018-08-23] VITALS: Ht 154.9 cm; Wt 143.3 kg
[~2018-08-23 12:49] MED LIST changes: +CEPH500C PO; +CIPROFLOXACIN 400MG PREMIX 200 ML IV SCH; +DOXA4TAB3 PO; +DOXA8TAB59 PO; +FERR325T14 PO; +IOHEXOL 300 MG/ML 100ML VIAL. ONE; +IV RINGERS,LACTATED 1000ML 1,000 ML IV SCH; +LIDOCAINE 1% PF 2 ML VIAL. ID PRN; +LIDOCAINE 2% JELLY 6ML IN APPLICATOR. ONE; +ONDANSETRON PF 4 MG/2 ML VIAL. IV PRN; +PROCHLORPERAZINE 10 MG/2 ML VIAL. IV PRN; +fentaNYL PF VIAL 100 MCG/2 ML VIAL IV PRN
[2018-08-23] MEDS ORDERED: fentaNYL PF VIAL 100 MCG/2 ML VIAL ONE (13:24)
[2018-08-23] MEDS ORDERED: PROPOFOL 20 ML IV ONE (13:24)
[2018-08-23] MEDS ORDERED: ePHEDrine PF IN SALINE 50 MG/5 ML DISP.SYRIN IV ONE (14:50)
[2018-08-23] MEDS ORDERED: PHENYLEPHRINE in 0.9% NACL PF 1 MG/10 ML SYRINGE. IV ONE (15:13)
--- NOTE | 2018-08-23 15:50 | PDOC4 ---
OPERATIVE NOTE Pre-Op Diagnosis: right ureter stone right renal stone Post-Op Diagnosis: same Procedure Performed: cysto, right urs w laser/stent Surgeon: Anesthesia Type: ga Blood Loss: 1ml Specimans Obtained: stone Findings: right renal stones x3. ureter of clear of any stones Complications: none evident TERE OCAMPO MD Aug 23, 2018 15:50
--- NOTE | 2018-08-23 15:53 | DISCH ---
DISCHARGE INSTRUCTIONS Condition on Discharge Condition on Discharge: Stable Activity After Discharge Activity Instructions for Disc: No restrictions Exercise Instruction after Dis: Walk 10 min, 3 x per day, Exercise per therapy Weight Bearing Status after Di: As tolerated Diet after Discharge Diet after Discharge: Regular, Diabetic No Calorie Level Diet Texture: Regular Liquid Texture: Thin Liquid Swallowing Supervision: None needed Wound Incision Care Wound/Incision Care: No wound care needed Contacting the [facility] after DC Call your doctor for: Concerns you may have Follow-Up Follow Up With: dr roa one week for stent pull Treatment/Equipment after DC Adaptive Equipment Issued: TERE Romano MD Aug 23, 2018 15:53
[2018-08-23] MEDS ORDERED: HYDR-971 PO (15:56)
[2018-08-23] MEDS ORDERED: TAMS0.4C97 PO (15:57)
[2018-08-23] MEDS ORDERED: SULF1TAB24 PO (15:58)
[2018-08-23] MEDS ORDERED: LABETALOL 20 MG/4 ML DISP.SYRIN. IVP PRN (16:30)
[2018-08-23] MEDS ORDERED: HYDROcodone/APAP 5/325MG 1 TAB TABLET PO ONE (16:45)
[2018-08-23 17:03] VITALS: BP 158/81
--- NOTE | 2018-09-12 14:50 | OP ---
DATE OF SURGERY: 08/23/2018 PREOPERATIVE DIAGNOSIS: Right kidney stone. POSTOPERATIVE DIAGNOSIS: Right kidney stone. PROCEDURE: Right ureteroscopy with holmium laser lithotripsy and stent placement. SURGEON: Valeria Robertson MD. ANESTHESIA: General. CONDITION: Stable. COMPLICATIONS: None. FINDINGS: Right renal stones. PROCEDURE IN DETAIL: The patient was taken back to the procedure room and placed under general anesthesia in a sterile supine position per the protocol. She was prepped and draped in a sterile fashion in dorsal lithotomy position. Timeout was performed. SCDs were attached. IV antibiotic was administered. A 21-Belizean rigid cystoscope was advanced per urethra into the bladder. Preexisting stent was visualized and brought to the meatus. This was tried to cannulate with a sensor wire, was unable to. Stent was removed completely and a 5-Belizean open-ended ureteral catheter was inserted. Gentle retrograde pyelography shows no distinct ureter filling defect. Sensor wire was placed over the Pollack all the way into the kidney. The dual lumen ureteral catheter was used to place a working wire. An 11/13-Belizean navigator HD Ureteral Access Sheath was used to get access into the proximal ureter. Flexible digital ureteroscope was used to get access into proximal ureter then into the kidney. There was no evidence of any proximal ureteral stone. Mid and upper pole stone visualized and these were pulverized to much smaller pieces with a 270 nanometer laser fiber. All fragments were irrigated easily through the sheath. The biggest fragments were removed with 0 tip nitinol basket. At the end of the procedure, there was no evidence of potential endoscopic obstructing fragments. Given one instrumentation, stent was already placed under fluoroscopy guidance. Bladder was emptied. The patient was awakened, taken to PACU in stable condition. DISPOSITION: She will follow up with me in 1 week for stent removal. She was sent home with pain medications. VALERIA ROBERTSON MD DR: RADHA/thais JOB#: [id number] / [id number] CONSTANZA
== END 2018-08-23 18:09 | disposition home or self-care (01) ==
LOC: SURG 12:49
PROVIDERS: ATTEND Urology
DX: N20.0 Calculus of kidney (principal); I10 Essential (primary) hypertension; E11.9 Type 2 diabetes mellitus without complications; G47.33 Obstructive sleep apnea (adult) (pediatric); M19.90 Unspecified osteoarthritis, unspecified site; K21.9 Gastro-esophageal reflux disease without esophagitis; E66.9 Obesity, unspecified; Z88.5 Allergy status to narcotic agent; Z68.43 Body mass index [BMI] 50.0-59.9, adult; Z98.890 Other specified postprocedural states; Z79.899 Other long term (current) drug therapy; Z90.49 Acquired absence of other specified parts of digestive tract; Z79.84 Long term (current) use of oral hypoglycemic drugs
CPT/HCPCS: 52356; 76000; 82365; 82962; C1769; C2617; J0744; J2370; J2704; J3010; Q9967

== ENCOUNTER → 2018-10-02 | Outpatient (CLI) | payer MEDICARE ==
[~2018-10-02] MED LIST changes: -CIPROFLOXACIN 400MG PREMIX 200 ML IV SCH; -IOHEXOL 300 MG/ML 100ML VIAL. ONE; -IV RINGERS,LACTATED 1000ML 1,000 ML IV SCH; -LIDOCAINE 1% PF 2 ML VIAL. ID PRN; -LIDOCAINE 2% JELLY 6ML IN APPLICATOR. ONE; -ONDANSETRON PF 4 MG/2 ML VIAL. IV PRN; -PROCHLORPERAZINE 10 MG/2 ML VIAL. IV PRN; +SULF1TAB24 PO; +TAMS0.4C97 PO; -fentaNYL PF VIAL 100 MCG/2 ML VIAL IV PRN
--- NOTE | 2018-10-02 17:01 | RAD ---
Renal ultrasound, 10/02/2018: HISTORY: Renal calculus The study was severely limited by the patient's body habitus. The right kidney could not be visualized. The left kidney measures 13.2 cm. It shows no evidence of hydronephrosis. A small amount of fluid is noted in the urinary bladder. CT scanning may be useful for further evaluation, if clinically indicated. Electronically signed by: Lucas Vick MD (10/02/2018 4:58 PM) [facility]
== END | disposition home or self-care (01) ==
LOC: US 14:21
PROVIDERS: ATTEND Urology
DX: N20.2 Calculus of kidney with calculus of ureter (principal)
CPT/HCPCS: 76770

== ENCOUNTER 2020-10-19 18:22 | Emergency (ER) | payer MEDICARE ==
[~2020-10-19] VITALS: Ht 154.9 cm; Wt 118.0 kg
[~2020-10-19 18:22] MED LIST changes: -ASPI-612 PO; +ASPI-886 PO; -GABA600T2 PO; +GABA600T7 PO; +HYDR-3164 PO; -HYDR-971 PO; +MONT10TA49 PO; -MONT10TA9 PO; +OMEP40CA45 PO; -OMEP40CA5 PO; -POTA10TA12 PO; +POTASSIUM CHLO10 ME1 PO; +SIMV20TA18 PO; -SIMV20TA3 PO; -TIZA4TAB PO; +TIZA4TAB2 PO
[2020-10-19] MEDS ORDERED: IV NORMAL SALINE 1000ML BAG 1,000 ML IV ONE ×2 (18:45→20:15)
[2020-10-19] MEDS ORDERED: ONDANSETRON PF 4 MG/2 ML VIAL. IVP ONE (18:45)
[2020-10-19] MEDS ORDERED: KETOROLAC 30 MG/ML VIAL. IVP ONE (18:45)
[2020-10-19 18:56] LABS: BASO # 0.1 x10^3/uL (0.0-0.2); BASO % 1 % (0-3); EOS % 0 % (0-3); HEMOGLOBIN 10.9 g/dL (12.0-15.5); LYMPH # 0.8 x10^3/uL (1.0-4.8); LYMPH % 6 % (24-48); MEAN CORPUSCULAR HEMOGLOBIN 30 pg (25-35); MEAN CORPUSCULAR HGB CONC 33 g/dL (31-37); MEAN CORPUSCULAR VOLUME 90 fL (79-100); MONO # 0.3 x10^3/uL (0.0-1.1); MONO % 2 % (0-9); NEUT # 10.7 x10^3/uL (1.8-7.7); NEUT % 91 % (31-73); PLATELET COUNT 228 x10^3/uL (140-400); RED BLOOD COUNT 3.68 x10^6/uL (3.50-5.40); RED CELL DISTRIBUTION WIDTH 15.1 % (11.5-14.5); WHITE BLOOD COUNT 11.8 x10^3/uL (4.0-11.0)
[2020-10-19 19:09] LABS: CALCIUM 8.8 mg/dL (8.5-10.1); CREATININE 1.9 mg/dL (0.6-1.0); GFR 32.9; POTASSIUM 4.9 mmol/L (3.5-5.1)
--- NOTE | 2020-10-19 19:10 | ED.ADGEN ---
Past Medical History Past Medical History: Arthritis, Diabetes-Type II, High Cholesterol, Hypertension, Kidney Stone Additional Past Medical Histor: MORBID OBESITY, OSTEOARTHRITIS, NEUROPATHY, SEASONAL ALLERGIES Past Surgical History: Cholecystectomy Additional Past Surgical Histo: D&C, lithotripsy Smoking Status: Never Smoker Alcohol Use: None Drug Use: None General Adult EDM: Chief Complaint: FLANK PAIN HPI: HPI: Patient is a 59-year-old female presents to the emergency room complaining of right flank pain that suddenly came on an hour and a half ago. She has had similar symptoms in the past with a kidney stone. She has had associated nausea and vomiting. She states prior to this she was feeling completely normal. She denies any diarrhea, constipation, fever, chills, sweats, cough, shortness of breath, URI symptoms. Review of Systems: Review of Systems: Complete ROS is negative unless otherwise documented in HPI Current Medications: Current Medications Medications (Trade) Dose Ordered Sig/Jenny Start Time Stop Time Status Last Admin Dose Admin Ceftriaxone Sodium (Rocephin) 1 gm 1X ONCE 10/19/20 23:00 10/19/20 23:01 DC 10/20/20 00:24 1 GM Fentanyl Citrate (Fentanyl 2ml Vial) 75 mcg 1X ONCE 10/19/20 19:30 10/19/20 19:31 DC 10/19/20 20:02 75 MCG Ketorolac Tromethamine (Toradol 30mg Vial) 30 mg 1X ONCE 10/19/20 18:45 10/19/20 18:46 DC 10/19/20 18:58 30 MG Ondansetron HCl (Zofran) 4 mg 1X ONCE 10/19/20 18:45 10/19/20 18:46 DC 10/19/20 18:58 4 MG Sodium Chloride 1,000 ml @ 1,000 mls/hr 1X ONCE 10/19/20 20:15 10/19/20 21:14 DC 10/20/20 00:24 1,000 MLS/HR Allergies: Allergies: Allergies Coded Allergies Type Severity Reaction Last Updated Verified morphine Adverse Reaction Intermediate Nausea and Vomiting 10/19/20 Yes Physical Exam: PE: General: Awake, alert, mild distress. Well Nourished, well hydrated. Cooperative HEENT: Atraumatic, EOMI, PERRL, airway patent, moist oral mucosa Neck: Supple, trachea midline Respiratory: CTA bilaterally, normal effort, no wheezing/crackles CV: RRR, no murmur, cap refill <2 GI: Soft, nondistended, nontender, no masses MSK: No obvious deformities Skin: Warm, dry, intact Neuro: A&O x3, speech NL, sensory and motor grossly intact, no focal deficits Psych: Normal affect, normal mood, not suicidal or homicidal Current Patient Data: Labs: Laboratory Tests Test 10/19/20 18:45 10/19/20 21:42 10/19/20 21:50 10/20/20 00:29 White Blood Count 11.8 x10^3/uL (4.0-11.0) H Red Blood Count 3.68 x10^6/uL (3.50-5.40) Hemoglobin 10.9 g/dL (12.0-15.5) L Hematocrit 33.0 % (36.0-47.0) L Mean Corpuscular Volume 90 fL (79-100) Mean Corpuscular Hemoglobin 30 pg (25-35) Mean Corpuscular Hemoglobin Concent 33 g/dL (31-37) Red Cell Distribution Width 15.1 % (11.5-14.5) H Platelet Count 228 x10^3/uL (140-400) Neutrophils (%) (Auto) 91 % (31-73) H Lymphocytes (%) (Auto) 6 % (24-48) L Monocytes (%) (Auto) 2 % (0-9) Eosinophils (%) (Auto) 0 % (0-3) Basophils (%) (Auto) 1 % (0-3) Neutrophils # (Auto) 10.7 x10^3/uL (1.8-7.7) H Lymphocytes # (Auto) 0.8 x10^3/uL (1.0-4.8) L Monocytes # (Auto) 0.3 x10^3/uL (0.0-1.1) Eosinophils # (Auto) 0.0 x10^3/uL (0.0-0.7) Basophils # (Auto) 0.1 x10^3/uL (0.0-0.2) Segmented Neutrophils % 91 % (35-66) H Band Neutrophils % 3 % (0-9) Lymphocytes % 5 % (24-48) L Monocytes % 1 % (0-10) Platelet Estimate Adequate (ADEQUATE) Sodium Level 137 mmol/L (136-145) Potassium Level 4.9 mmol/L (3.5-5.1) Chloride Level 103 mmol/L (98-107) Carbon Dioxide Level 26 mmol/L (21-32) Anion Gap 8 (6-14) Blood Urea Nitrogen 32 mg/dL (7-20) H Creatinine 1.9 mg/dL (0.6-1.0) H Estimated GFR (Cockcroft-Gault) 32.9 Glucose Level 112 mg/dL (70-99) H Calcium Level 8.8 mg/dL (8.5-10.1) SARS-CoV-2 Antigen (Rapid) Negative (NEGATIVE) Urine Collection Type Unknown Urine Color Yellow Urine Clarity Clear Urine pH 5.5 (<5.0-8.0) Urine Specific [place] 1.015 (1.000-1.030) Urine Protein Negative mg/dL (NEG-TRACE) Urine Glucose (UA) Negative mg/dL (NEG) Urine Ketones (Stick) Negative mg/dL (NEG) Urine Blood Negative (NEG) Urine Nitrite Positive (NEG) Urine Bilirubin Negative (NEG) Urine Urobilinogen Dipstick 0.2 mg/dL (0.2 mg/dL) Urine Leukocyte Esterase Moderate (NEG) Urine RBC 0 /HPF (0-2) Urine WBC >40 /HPF (0-4) Urine Squamous Epithelial Cells Few /LPF Urine Bacteria Many /HPF (0-FEW) Lactic Acid Level 2.2 mmol/L (0.4-2.0) H Laboratory Tests 10/19/20 18:45 Laboratory Tests 10/19/20 18:45 Vital Signs: Vital Signs Date Time Temp Pulse Resp B/P (MAP) Pulse Ox O2 Delivery O2 Flow Rate FiO2 10/19/20 18:23 99.1 80 22 197/87 (123) 98 Room Air 99.1 EKG: EKG: [] Heart Score: Risk Factors: Risk Factors: DM, Current or recent (<one month) smoker, HTN, HLP, family history of CAD, obesity. Risk Scores: Score 0 - 3: 2.5% MACE over next 6 weeks - Discharge Home Score 4 - 6: 20.3% MACE over next 6 weeks - Admit for Clinical Observation Score 7 - 10: 72.7% MACE over next 6 weeks - Early Invasive Strategies Radiology/Procedures: Radiology/Procedures: [] Course & Med Decision Making: Course & Med Decision Making Pertinent Labs and Imaging studies reviewed. (See chart for details) Patient is a 59 year old who presents to the Emergency Room complaining of right-sided flank pain. On exam, patient is in distress. Patient's presentation is concerning for a possible kidney stone. Patient was given fentanyl and Toradol for pain relief. CBC, BMP, UA were ordered to evaluate for kidney function and infection. CT abdomen and pelvis without contrast was ordered to evaluate for a kidney stone. CT shows 6 mm kidney stone with hydronephrosis. At this time, patient does have significant hydronephrosis. She sees a urologist at [facility]. Will transfer patient to [facility] to see Dr. Shore. Bernie Disclaimer: Bernie Disclaimer: This electronic medical record was generated, in whole or in part, using a voice recognition dictation system. Departure Departure Impression: Primary Impression: Renal and ureteric calculus Disposition: 02 DC/TRF OTHER SHORT TERM HOS Condition: IMPROVED Referrals: KISHAN OLIVARES MD (PCP) MAJO SHAW MD Oct 19, 2020 19:10
[2020-10-19] MEDS ORDERED: fentaNYL PF VIAL 100 MCG/2 ML VIAL IVP ONE (19:30)
[2020-10-19 19:43] LABS: % BANDS 3 % (0-9); % LYMPHS 5 % (24-48); % MONOS 1 % (0-10); % SEGS 91 % (35-66); PLT ESTIMATE ADEQUATE (ADEQUATE)
--- NOTE | 2020-10-19 19:59 | RAD ---
INDICATION: Reason: R flank pain / Spl. Instructions: / History: . COMPARISON: July 2018 TECHNIQUE: Axial CT images obtained through the abdomen and pelvis without contrast. One or more of the following individualized dose reduction techniques were utilized for this examination: 1. Automated exposure control; 2. Adjustment of the mA and/or kV according to patient size; 3. Use of iterative reconstruction technique. FINDINGS: Sub-4 mm subpleural nodule right lung base. Coronary artery calcific atherosclerosis. Mild distention distal esophagus versus small hiatal hernia. Trace pleural effusions. Calcific atherosclerosis. Fat-containing umbilical hernia. Enlarged lymph nodes in the bilateral groin. For example on the right measuring up to 18 mm short axis. On the left these measure up to about 15 mm short axis. Also seen on prior. No intrahepatic bile duct dilation. Liver prominent in size with postcholecystectomy changes. Limited assessment of the pancreas without contrast. Spleen unremarkable. Left adrenal nodule measuring up to 18 x 31 mm appears similar to slightly increased. Left-sided renal stone seen. Urinary bladder is partially distended. Uterus is visualized. Right-sided hydronephrosis with perinephric edema and 6 mm right UPJ stone. Colonic diverticulosis. No periappendiceal inflammatory changes. No dilated loops of bowel to suggest obstruction. Degenerative changes the spine with multilevel central canal and neural foraminal stenosis. Degenerative changes of the sacroiliac joints. IMPRESSION: * Right-sided hydronephrosis and perinephric edema with a small amount of adjacent fluid with right proximal ureter stone. * Repeat demonstration of lymphadenopathy in the bilateral groin of unknown etiology. * No evidence of appendicitis or bowel obstruction. * Repeat demonstration of left adrenal nodule which has an indeterminate appearance. Likely slightly increased from prior. * There is repeat demonstration of some prominent lymph nodes seen within the retroperitoneum of unknown etiology. Electronically signed by: Danny Haro MD (10/19/2020 7:56 PM) [id number]
[2020-10-19 22:12] LABS: BILIRUBIN,URINE NEGATIVE (NEG); CLARITY,URINE CLEAR; COLOR,URINE YELLOW; NITRITE,URINE POSITIVE (NEG); PH,URINE 5.5 (<5.0-8.0); PROTEIN,URINE NEGATIVE (NEG-TRACE); UROBILINOGEN,URINE 0.2 mg/dL (0.2 mg/dL)
[2020-10-19 22:22] LABS: BACTERIA,URINE MANY /HPF (0-FEW); RBC,URINE 0 /HPF (0-2); WBC,URINE >40 /HPF (0-4)
[2020-10-19] MEDS ORDERED: cefTRIAXone IV Push 1 GM VIAL. IVP ONE (23:00)
[2020-10-20 00:56] VITALS: BP 171/75
== END 2020-10-20 01:30 | disposition short-term general hospital (02) ==
LOC: ER 18:22
DX: N13.2 Hydronephrosis with renal and ureteral calculous obstruction (principal); R11.2 Nausea with vomiting, unspecified; Z20.818 Contact with and (suspected) exposure to other bacterial communicable diseases; R10.9 Unspecified abdominal pain; M19.90 Unspecified osteoarthritis, unspecified site; E78.00 Pure hypercholesterolemia, unspecified; I10 Essential (primary) hypertension; E11.40 Type 2 diabetes mellitus with diabetic neuropathy, unspecified; Z90.49 Acquired absence of other specified parts of digestive tract; Z98.890 Other specified postprocedural states; Z87.442 Personal history of urinary calculi; E66.01 Morbid (severe) obesity due to excess calories; Z68.42 Body mass index [BMI] 45.0-49.9, adult; Z88.6 Allergy status to analgesic agent
CPT/HCPCS: 36415; 74176; 80048; 81001; 83605; 85007; 85025; 87426; 96361; 96374; 96375; 99285; J0696; J1885; J2405; J3010; J7030; U0003